=== PATIENT | female | born 1970 | race Caucasian/White ===

== ENCOUNTER 2016-05-19 17:36 | Emergency (ER) | payer OTHER ==
[2016-05-19 18:32] VITALS: BP 106/82
[2016-05-19] MEDS ORDERED: Benzonatate CAP* 100 MG PO ONE (19:29)
[2016-05-19] MEDS ORDERED: Azithromycin TAB* 250 MG PO ONE (19:29)
--- NOTE | 2016-05-19 22:08 | UC ---
Respiratory Complaint HPI - HPI Summary HPI Summary: productive cough and sinus congestion for 4d. Green drainage. Smoker. Feels feverish at times. Mild scratchy throat. Poor appetite. Body aches and malaise. - History of Current Complaint Chief Complaint: UCRespiratory Stated Complaint: COUGH Time Seen by Provider: 05/19/16 19:18 Hx Obtained From: Patient Hx Last Menstrual Period: 05/16/16 Onset/Duration: Gradual Onset, Lasting Days - 4 Timing: Constant Severity Initially: Mild Severity Currently: Mild Pain Intensity: 5 Character: Sputum Description: - green Aggravating Factors: Recumbent Position Alleviating Factors: Nothing Associated Signs And Symptoms: Positive: Dyspnea - at times, Fever, Chills, Wheezing - at times, URI, Nasal Congestion, Hoarseness, Sinus Discomfort - Allergies/Home Medications Allergies/Adverse Reactions: Allergies Allergy/AdvReac Type Severity Reaction Status Date / Time Morphine Allergy Rash Verified 05/19/16 18:22 Penicillins [PCN] Allergy Swelling Verified 05/19/16 18:22 Environment/Seasonal Hayfever Allergy Sneeze, Uncoded 05/19/16 18:22 Congestion Home Medications: Home Medications Docusate CAP* [Colace Cap*] 100 mg PO DAILY 05/19/16 [History Confirmed 05/19/16 ] Nightmare Medication BEDTIME 05/19/16 [History] Polyethylene Glycol 3350* [Miralax*] 17 gm PO DAILY 05/19/16 [History Confirmed 05/19/16] Tapentadol(NF) [Nucynta(NF)] 50 mg PO TID 05/19/16 [History Confirmed 05/19/16] PMH/Surg Hx/FS Hx/Imm Hx Endocrine History Of: Denies: Diabetes Cardiovascular History Of: Denies: Hypertension, Pacemaker/ICD, Congestive Heart Failure GI/ History Of: Reports: Gall Bladder Disease - domitila 05/2014 Denies: Renal Disease Neurological History Of: Reports: Migraine - R/T CHRONIC NECK PROBLEM Psychological History Of: Reports: Depression - BIPOLAR, NO MEDS PRESENTLY - Surgical History Surgical History: Yes Surgery Procedure, Year, and Place: TONSILLECTOMY. 1995 BILATERAL TUBAL LIGATION, [facility]. 2010 LYMPH NODE RIGHT SIDE BACK OF SHOULDER REMOVED, [place]. 05/29/2014 LAPAROSCOPIC CHOLECYSTECTOMY, [facility]. left ovary & fallopian tube removal 09/2015 - Family History Known Family History: Positive: Hypertension - Social History Occupation: Employed Full-time Alcohol Use: Occasionally Substance Use Type: None Smoking Status (MU): Light Every Day Tobacco Smoker Type: Cigarettes Amount Used/How Often: 3 cigarettes daily Length of Time of Smoking/Using Tobacco: 30 YEARS Have You Smoked in the Last Year: Yes Household Exposure Type: Cigarettes - Immunization History Most Recent Influenza Vaccination: 2015 Review of Systems Constitutional: Chills, Fatigue Skin: Negative Eyes: Negative ENT: Sore Throat, Nasal Discharge Respiratory: Cough Cardiovascular: Negative Gastrointestinal: Negative Genitourinary: Negative Motor: Negative Neurovascular: Negative Musculoskeletal: Negative Neurological: Negative Psychological: Negative All Other Systems Reviewed And Are Negative: Yes Physical Exam Triage Information Reviewed: Yes Appearance: Well-Appearing, No Pain Distress, Well-Nourished Vital Signs: Initial Vital Signs Temp 98 F 05/19/16 18:24 Pulse 74 05/19/16 18:24 Resp 18 05/19/16 18:24 BP 106/82 05/19/16 18:24 Pulse Ox 100 05/19/16 18:24 Eye Exam: Normal Eyes: Positive: Conjunctiva Clear ENT: Positive: Pharyngeal erythema, Nasal congestion, TMs normal, Muffled/ hoarse voice - hoarse Neck exam: Normal Neck: Positive: Supple Respiratory Exam: Normal Respiratory: Positive: Normal breath sounds, No respiratory distress, No accessory muscle use, Rhonchi Cardiovascular Exam: Normal Musculoskeletal Exam: Normal Neurological Exam: Normal Psychological Exam: Normal Skin Exam: Normal Diagnostic Evaluation - Laboratory O2 Sat by Pulse Oximetry: 100 Respiratory Course/Dx - Differential Dx/Diagnosis Differential Diagnosis/HQI/PQRI: Bronchitis, Lower Resp Infection, Sinusitis Provider Diagnoses: bronchitis Discharge - Discharge Plan Condition: Stable Disposition: HOME Prescriptions: Azithromycin TAB* [Zithromax TAB (Z-MARY LOU) 250 mg #6 tabs] 2 tab PO .TODAY, THEN 1 DAILY #1 mary lou Guaifenesin-Codeine [Cheratussin AC] 1 - 2 teasp PO Q6HR PRN #120 ml MDD 30ml PRN Reason: Cough Patient Education Materials: Upper Respiratory Infection (ED) Referrals: Carina Carney MD [Primary Care Provider] -
== END 2016-05-19 19:44 | disposition home or self-care (01) ==
LOC: UCCORT 17:36
DX: J40 Bronchitis, not specified as acute or chronic (principal); F17.210 Nicotine dependence, cigarettes, uncomplicated; Z88.0 Allergy status to penicillin; Z88.5 Allergy status to narcotic agent
CPT/HCPCS: 99212; A9270-GY; G0463

== ENCOUNTER 2016-07-01 15:19 | Emergency (ER) | payer OTHER ==
--- NOTE | 2016-07-01 15:56 | UC ---
Upper Extremity HPI - HPI Summary HPI Summary: This is a 46 yo female with a h/o IBS, RSD of the RLE, PTSD who presented with c /o R elbow and shoulder pain. Pain started ~ 2 weeks ago. She denies any new activities. No trauma. She is currently unemployed. Pain is concentrated in the proximal elbow and radiates to the shoulder. Pain is exacerbated by extension of the arm and overhead activities. - History of Current Complaint Chief Complaint: UCUpperExtremity Stated Complaint: RIGHT ELBOW PAIN Hx Last Menstrual Period: 06/12/16 - Allergies/Home Medications Allergies/Adverse Reactions: Allergies Allergy/AdvReac Type Severity Reaction Status Date / Time Morphine Allergy Rash Verified 07/01/16 15:25 Penicillins [PCN] Allergy Swelling Verified 07/01/16 15:25 Environment/Seasonal Hayfever Allergy Sneeze, Uncoded 07/01/16 15:25 Congestion Home Medications: Home Medications Bisacodyl EC TAB* [Dulcolax EC TAB*] 5 mg PO BID 07/01/16 [History Confirmed 12/10] Gabapentin CAP(*) [Neurontin 300 CAP(*)] 600 mg PO TID 07/01/16 [History Confirmed 07/01/16] PMH/Surg Hx/FS Hx/Imm Hx Endocrine History Of: Denies: Diabetes Cardiovascular History Of: Denies: Hypertension, Pacemaker/ICD, Congestive Heart Failure GI/ History Of: Reports: Gall Bladder Disease - domitila 05/2014 Denies: Renal Disease Neurological History Of: Reports: Migraine - R/T CHRONIC NECK PROBLEM Psychological History Of: Reports: Depression - BIPOLAR, NO MEDS PRESENTLY - Surgical History Surgical History: Yes Surgery Procedure, Year, and Place: TONSILLECTOMY. 1995 BILATERAL TUBAL LIGATION, [facility]. 2010 LYMPH NODE RIGHT SIDE BACK OF SHOULDER REMOVED, [place]. 05/29/2014 LAPAROSCOPIC CHOLECYSTECTOMY, [facility]. left ovary & fallopian tube removal 09/2015 - Family History Known Family History: Positive: Hypertension - Social History Alcohol Use: None Substance Use Type: None Smoking Status (MU): Heavy Every Day Tobacco Smoker Type: Cigarettes Amount Used/How Often: 1/2 PPD Length of Time of Smoking/Using Tobacco: 30 YEARS Have You Smoked in the Last Year: Yes Household Exposure Type: Cigarettes - Immunization History Most Recent Influenza Vaccination: 2016 Review of Systems Constitutional: Negative Skin: Negative Eyes: Negative ENT: Negative Respiratory: Negative Cardiovascular: Negative Gastrointestinal: Negative Genitourinary: Negative Motor: Negative Neurovascular: Negative Musculoskeletal: Arthralgia, Decreased ROM Neurological: Negative Psychological: Negative All Other Systems Reviewed And Are Negative: Yes Physical Exam Triage Information Reviewed: Yes Appearance: Pain Distress - mild Vital Signs: Initial Vital Signs Temp 98.0 F 07/01/16 15:28 Pulse 88 07/01/16 15:28 Resp 16 07/01/16 15:28 BP 113/59 07/01/16 15:28 Pulse Ox 100 07/01/16 15:28 Vital Signs Reviewed: Yes Musculoskeletal: Positive: Strength Intact, Other: - pain with palpation of triceps tendon insertion at the elbow and anterior deltoid/biceps origination, pain elicited with internal rotation of the shoulder Diagnostics - Laboratory Diagnostic Studies Completed/Ordered: XR shoulder - neg. XR elbow - neg Re-Evaluation - Re-Evaluation First Eval Re-Evaluation Time: 16:15 Change: Unchanged Comment: Reviewed XR results Upper Extremity Course/Dx - Course Course Of Treatment: This is a 46 yo female with IBS and RSD of LLE as well as PTSD who presents with R elbow and shoulder pain. Imaging is negative. Exam most consistent with tendinitis. Unlikely to be progression of her RSD. Recommend NSAIDs and can try topical lidocaine as well for symptomatic relief. Recommended f/u with PCP and referral to ortho and/or PT if pain persists. - Differential Dx/Diagnosis Differential Diagnosis/HQI/PQRI: Arthritis, Bursitis, Fracture (Closed), Strain , Sprain Provider Diagnoses: R triceps and biceps tendinitis Discharge - Discharge Plan Condition: Stable Disposition: HOME Prescriptions: Lidocaine 5% OINT* [Xylocaine 5% Oint*] 1 applic TOPICAL Q4H PRN #1 tube PRN Reason: Pain Naproxen [Naproxen EC] 500 mg PO BID #30 tab Patient Education Materials: Tendinitis (ED) Referrals: Carina Carney MD [Primary Care Provider] - Additional Instructions: Activity: Limit activity with R arm Instructions: 1. You likely have a tendinitis 2. Use Naproxen twice daily and topical lidocaine 3. If pain does not improve then please see your primary care for a referral to an orthopedist
--- NOTE | 2016-07-01 16:15 | RAD ---
INDICATION: Right shoulder pain COMPARISON: None TECHNIQUE: Routine frontal and Y views were obtained. FINDINGS: The bony structures, joint spaces, and soft tissues are normal for age. IMPRESSION: NEGATIVE EXAMINATION
--- NOTE | 2016-07-01 16:15 | RAD ---
INDICATION: Right elbow injury COMPARISON: None TECHNIQUE: AP, lateral, and oblique views were obtained. FINDINGS: The bony structures, joint spaces, and soft tissues are normal for age. IMPRESSION: NEGATIVE EXAMINATION.
[2016-07-01] MEDS ORDERED: Naproxen TAB* 250 MG PO ONE (16:40)
[2016-07-01 16:48] VITALS: BP 110/78
== END 2016-07-01 16:49 | disposition home or self-care (01) ==
LOC: UCCORT 15:19
DX: M75.21 Bicipital tendinitis, right shoulder (principal); M65.829 Other synovitis and tenosynovitis, unspecified upper arm; Z88.5 Allergy status to narcotic agent; Z88.0 Allergy status to penicillin; Z90.49 Acquired absence of other specified parts of digestive tract; F17.210 Nicotine dependence, cigarettes, uncomplicated
CPT/HCPCS: 99212; A9270-GY; G0463

== ENCOUNTER 2017-04-22 16:07 | Emergency (ER) | payer OTHER ==
[2017-04-22 16:25] VITALS: BP 109/74
--- NOTE | 2017-04-22 17:05 | ED ---
Back Pain - HPI Summary HPI Summary: 46 yr old female with the complaint of back pain. 09/02, worse with breathing associated with lumps near her thoracic spine on the left side about t-9 and in the paraspinal intercostal space about t8. just noticed today. Denies fever, weakness, numbness in legs. She has been a smoker for 30 years. - History of Current Complaint Chief Complaint: UCBackPain Stated Complaint: LUMP ON BACK (HURTS TO BREATH) Time Seen by Provider: 04/22/17 16:52 Hx Last Menstrual Period: 04/11/17 - Allergies/Home Medications Allergies/Adverse Reactions: Allergies Allergy/AdvReac Type Severity Reaction Status Date / Time Penicillins [PCN] Allergy Swelling Verified 04/22/17 16:26 Environment/Seasonal Hayfever Allergy Sneeze, Uncoded 04/22/17 16:26 Congestion Home Medications: Home Medications Amitriptyline TAB* [Elavil TAB*] 25 mg PO BEDTIME 04/22/17 [History Confirmed ] FLUoxetine CAP* [PROzac CAP*] 20 mg PO DAILY 04/22/17 [History Confirmed ] Famotidine TAB* [Pepcid 20 MG TAB*] 20 mg PO DAILY 04/22/17 [History Confirmed 04/22/17] Ferrous Gluconate TAB* [Fergon TAB*] 325 mg PO DAILY 04/22/17 [History Confirmed 04/22/17] Gabapentin CAP(*) [Neurontin 300 CAP(*)] 300 mg PO TID 04/22/17 [History Confirmed 04/22/17] Loratadine 10 mg PO DAILY 04/22/17 [History Confirmed 04/22/17] Omeprazole CAP* [Prilosec CAP* 20 MG] 20 mg PO DAILY 04/22/17 [History Confirmed 04/22/17] Ondansetron TAB* [Zofran 4 MG Tab*] 4 mg PO Q6H PRN 04/22/17 [History Confirmed 04/22/17] Varenicline (NF) [Chantix 1 MG TAB (NF)] 1 mg PO DAILY 04/22/17 [History Confirmed 04/22/17] PMH/Surg Hx/FS Hx/Imm Hx Endocrine/Hematology History: Reports: Hx Anemia - NO MEDS Denies: Hx Diabetes Cardiovascular History: Denies: Hx Congestive Heart Failure, Hx Hypertension, Hx Pacemaker/ICD Respiratory History: Reports: Other Respiratory Problems/Disorders GI History: Reports: Hx Gall Bladder Disease - domitila 05/2014, Hx Gastroesophageal Reflux Disease - NO MEDS, Other GI Disorders - pancreatitis, NO PROBLEMS NOW History: Reports: Other Problems/Disorders - HX OF UTI, NONE RECENTLY Denies: Hx Renal Disease Musculoskeletal History: Reports: Hx Back Problems Sensory History: Reports: Hx Contacts or Glasses Denies: Hx Hearing Aid Opthamlomology History: Reports: Hx Contacts or Glasses Neurological History: Reports: Hx Headaches, Hx Migraine - R/T CHRONIC NECK PROBLEM Psychiatric History: Reports: Hx Depression - BIPOLAR, NO MEDS PRESENTLY Denies: Hx Panic Disorder - Surgical History Surgery Procedure, Year, and Place: TONSILLECTOMY. 1995 BILATERAL TUBAL LIGATION, [facility]. 2010 LYMPH NODE RIGHT SIDE BACK OF SHOULDER REMOVED, [place]. 05/29/2014 LAPAROSCOPIC CHOLECYSTECTOMY, [facility]. left ovary & fallopian tube removal 09/2015 Hx Anesthesia Reactions: Yes - GALLBLADDER - DIFFICULTY WAKING - VS DROPPED X 2 Infectious Disease History: No Infectious Disease History: Denies: Traveled Outside the in Last 30 Days - Family History Known Family History: Positive: Hypertension - Social History Alcohol Use: Occasionally Substance Use Type: Reports: None Smoking Status (MU): Former Smoker Type: Cigarettes Amount Used/How Often: 1/2 PPD Length of Time of Smoking/Using Tobacco: 30 YEARS Have You Smoked in the Last Year: Yes Review of Systems Constitutional: Negative Negative: Shortness Of Breath Positive: Other - back pain Negative: Weakness, Paresthesia, Numbness All Other Systems Reviewed And Are Negative: Yes Physical Exam Triage Information Reviewed: Yes Vital Signs On Initial Exam: Initial Vitals Temp Pulse Resp BP Pulse Ox 98.1 F 90 18 109/74 99 04/22/17 16:21 04/22/17 16:21 04/22/17 16:21 04/22/17 16:21 04/22/17 16:21 Vital Signs Reviewed: Yes Appearance: Positive: Well-Appearing, No Pain Distress Skin: Positive: Warm, Skin Color Reflects Adequate Perfusion Head/Face: Positive: Normal Head/Face Inspection Eyes: Positive: EOMI ENT: Positive: Normal ENT inspection Respiratory/Lung Sounds: Positive: Clear to Auscultation, Breath Sounds Present , Other - In her thoracic spine area there are lumps to the left of the t-9 area and also in t-8 interspace that are firm and non mobile without flutucance and without redness. Cardiovascular: Positive: RRR. Negative: Murmur Musculoskeletal: Positive: Strength/ROM Intact Neurological: Positive: Sensory/Motor Intact, Alert, Oriented to Person Place, Time, CN Intact II-III Psychiatric: Positive: Normal - [place] Coma Scale Best Eye Response: 4 - Spontaneous Best Motor Response: 6 - Obeys Commands Best Verbal Response: 5 - Oriented Diagnostics - Vital Signs Vital Signs Temp Pulse Resp BP Pulse Ox 04/22/17 16:21 98.1 F 90 18 109/74 99 - Laboratory Lab Statement: Any lab studies that have been ordered have been reviewed, and results considered in the medical decision making process. Back Pain Course/Dx - Course Course Of Treatment: 46 yr old with pain, mass t spine superficial skin area and worse with breathing. She is going by ambulance to [facility] for further work up. ABDOUL Emanuel NP at [facility]. - Diagnoses Provider Diagnoses: Back pain Discharge - Discharge Plan Condition: Good Disposition: TRANS HIGHER LVL OF CARE FAC Referrals: Leonela Hernandez MD [Primary Care Provider] -
== END 2017-04-22 17:20 | disposition short-term general hospital (02) ==
LOC: UCCORT 16:07
DX: M54.9 Dorsalgia, unspecified (principal); R22.2 Localized swelling, mass and lump, trunk; Z88.0 Allergy status to penicillin; Z91.048 Other nonmedicinal substance allergy status; Z87.891 Personal history of nicotine dependence
CPT/HCPCS: 99213; G0463

== ENCOUNTER 2017-06-13 15:53 | Emergency (ER) | payer OTHER ==
[2017-06-13 17:06] VITALS: BP 113/77
--- NOTE | 2017-06-13 17:36 | UC ---
Back Pain HPI - HPI Summary HPI Summary: 47 y/o female presents to the urgent care c/o lower back pain s/p slipping on ice 2 days ago. Lower back pain started yesterday when she woke up. Pain is 9/ 10 w/ movement, sharp and spasmodic radiating to her left hip and leg. Pt has taken Naproxen to alleviate symptoms w/o any relief. Pt states she has Hx of herniated disc in her lower back. Pt denies saddle anesthesia, urinary and fecal incontinence, urinary symptoms, fever, abdominal pain, N/V/D. Pt is waiting fo ran appointment w/ a Neurologist at [place] for her back. - History of Current Complaint Chief Complaint: UCBackPain Stated Complaint: BACK PAIN DOWN LEFT LEG Time Seen by Provider: 06/13/17 17:34 Hx Obtained From: Patient Hx Last Menstrual Period: 06/05/17 ?: No Onset/Duration: Sudden Onset, Lasting Days - 2 days, Still Present, Worse Since - yesterday Timing: Constant Severity Initially: Moderate Severity Currently: Severe Pain Intensity: 9 Pain Scale Used: 0-10 Numeric Back Pain: Is Discrete @ - left side of lower back Character: Sharp, Spasmodic Aggravating Factor(s): Movement, Lifting, Bending, Walking Alleviating Factor(s): Rest, OTC Meds Associated Signs And Symptoms: Positive: Pain with Weight Bearing. Negative: Swelling, Redness, Bruising, Fever, Weakness, Numbness, Tingling, Abdominal Pain , Flank Pain, Bladder Incontinence, Bowel Incontinence, Weight Loss - Risk Factors AAA Risk Factors: Negative TAD Risk Factors: Negative Cauda Equina Risk Factors: Negative Epidural Abscess Risk Factors: Negative - Allergies/Home Medications Allergies/Adverse Reactions: Allergies Allergy/AdvReac Type Severity Reaction Status Date / Time Penicillins Allergy Swelling Verified 06/13/17 16:49 Environment/Seasonal Hayfever Allergy Sneeze, Uncoded 06/13/17 16:49 Congestion Home Medications: Home Medications Amitriptyline TAB* [Elavil TAB*] 50 mg PO BEDTIME 06/13/17 [History Confirmed ] Gabapentin 600 mg PO TID 06/13/17 [History Confirmed 06/13/17] Guaifenesin/Pseudoephedrne HCl [Mucinex D ER Tablet] 1 each PO BID PRN 06/13/17 [History Confirmed 06/13/17] Omeprazole 40 mg PO DAILY 06/13/17 [History Confirmed 06/13/17] Prazosin HCl 2 mg PO DAILY 06/13/17 [History Confirmed 06/13/17] Sennosides/Docusate Sodium [Senokot-S Tablet] 2 tab PO DAILY 06/13/17 [History Confirmed 06/13/17] Topiramate TAB(*) [Topamax 25 MG tab] 25 mg PO BEDTIME 06/13/17 [History Confirmed 06/13/17] PMH/Surg Hx/FS Hx/Imm Hx Previously Healthy: Yes Other Endocrine History: Anemia Other Neurological History: Neuropathy, herniated disc at lower back and neck Psychological History: Anxiety Other Psychological History: PTSD, - Surgical History Surgical History: Yes Surgery Procedure, Year, and Place: TONSILLECTOMY. 1995 BILATERAL TUBAL LIGATION, [facility]. 2009 LYMPH NODE RIGHT SIDE BACK OF SHOULDER REMOVED, [place]. 05/29/2014 LAPAROSCOPIC CHOLECYSTECTOMY, [facility]. left ovary & fallopian tube removal 09/2015 - Family History Known Family History: Positive: Cardiac Disease, Hypertension - Social History Occupation: Employed Full-time Lives: With Family Alcohol Use: Rare Substance Use Type: None Smoking Status (MU): Former Smoker Type: Cigarettes Amount Used/How Often: 1/2 PPD Length of Time of Smoking/Using Tobacco: 30 YEARS Have You Smoked in the Last Year: Yes When Did the Patient Quit Smoking/Using Tobacco: 09/2016 Household Exposure Type: Cigarettes - Immunization History Most Recent Influenza Vaccination: 2015 Review of Systems Constitutional: Negative Skin: Negative Eyes: Negative ENT: Negative Respiratory: Negative Cardiovascular: Negative Gastrointestinal: Negative Genitourinary: Negative Motor: Negative Neurovascular: Negative Musculoskeletal: Decreased ROM - lower back, Other: - lower back pain s/p fall Neurological: Negative Psychological: Negative Is Patient Immunocompromised?: No All Other Systems Reviewed And Are Negative: Yes Physical Exam Triage Information Reviewed: Yes Vital Signs: Initial Vital Signs Temp 97.7 F 06/13/17 17:00 Pulse 101 06/13/17 17:00 Resp 16 06/13/17 17:00 BP 113/77 06/13/17 17:00 Pulse Ox 99 06/13/17 17:00 - Additional Comments Vital Signs Reviewed: Yes Appearance: Well-Appearing, Well-Nourished, male sitting in the examining table w/o any apparent distress. Eyes: Positive: Conjunctiva Clear - PERRLA, EOMI. ENT: Positive: Normal ENT inspection, Hearing grossly normal, Pharynx normal, TMs normal, Uvula midline Neck: Positive: Supple, Nontender, No Lymphadenopathy Respiratory: Positive: Chest non-tender, Lungs clear, Normal breath sounds, No respiratory distress Cardiovascular: Positive: RRR, No Murmur, Pulses Normal, Brisk Capillary Refill Abdomen Description: Positive: Nontender, No Organomegaly, Soft. Negative: CVA Tenderness (R), CVA Tenderness (L) Bowel Sounds: Positive: Present Musculoskeletal: Positive: Strength Intact, Other: - BACK: Patient walked into the urgent care room with symmetric ambulation, No signs of limping, antalgic, able to bear weight. No signs of trauma, No masses palpated. Point tenderness at the level of L5-S1, and paraspinal muscle tenderness and spasm at the same level.No CVAT, no flank ecchymosis . No sacroiliac notch tenderness, No saddle anesthesia.ROM: limited due to pain, Straight Leg Raise: negative. Patellar reflexes: brisk, symmetric Muscle strength lower extremities. Dorsiflexion/ plantar flexion of ankles. Heel/ toe walk. Lower extremities: Femoral, popliteal , posterior tibial, and dorsalis pedis pulses WNL. Pt refuse rectal exam Neurological: Positive: Alert, Muscle Tone Normal Psychological Exam: Normal Skin Exam: Normal Back Pain Course/Dx - Course Course Of Treatment: 47 y/o female presents to the urgent care c/o lower back pain s/p slipping on ice 2 days ago. Lower back pain started yesterday when she woke up. Pain is 9/10 w/ movement, sharp and spasmodic radiating to her left hip and leg. Pt has taken Naproxen to alleviate symptoms w/o any relief. Pt states she has Hx of herniated disc in her lower back. Pt denies saddle anesthesia, urinary and fecal incontinence, urinary symptoms, fever, abdominal pain, N/V/D. Pt is waiting fo ran appointment w/ a Neurologist at [place] for her back. Hx obtained. Pt w/ point tenderness at the level of L5-S1, and paraspinal muscle tenderness and spasm at the same level. Lumbosacral X-ray ordered, Impression: No acute osseous injury observed, Moderate degenerative disc disease at T11-12, L2-L3, L3-L4. Pt given Toradol IM inj and famotidine PO, Prednisone PO . Flexeril PO dispensed home. Given by nurse. Pt tolerated well medication pain decrease. Medications sent to the [facility]. Patient was instructed to the f/u [facility] orthopedic Dr Sanchez in 1 week if symptoms do not improve or worsen. Patient understands and agrees. Patient is able to ambulate freely w/o aid or limp. Plan of care was discussed with the patient and patient understands and agrees. All questions were answered at patient satisfaction. Pt left clinic hemodynamically stable. - Differential Dx/Diagnosis Differential Diagnosis/HQI/PQRI: Arthritis, Compressive Cord Syndrome, Fracture , Herniated Disc, Renal Colic, Strain, Sprain Provider Diagnoses: 1- Acute lower back pain. 2-Back spasm Discharge - Discharge Plan Condition: Stable Disposition: HOME Prescriptions: Cyclobenzaprine TAB* [Flexeril 10 MG TAB*] 10 mg PO TID PRN #20 tab PRN Reason: Spasms - Back Naproxen [Naproxen 500 mg] 500 mg PO Q8H PRN #30 tab PRN Reason: Pain predniSONE TAB* [Deltasone TAB*] 20 mg PO DAILY #8 tab Patient Education Materials: Acute Low Back Pain (ED), Muscle Spasm (ED), Degenerative Disc Disease (ED) Referrals: Leonela Hernandez MD [Primary Care Provider] - 3 Days Sp Sanchez MD [Medical Doctor] - 1 Week Additional Instructions: 1- Please take Naproxen PO q6-8hrs as directed after meals for pain. Take your Omeprazole qd to protect your stomach 2- Take Flexeril PO as directed for muscle spasm. Please do not drive while taking the medication. This medication can interact w/ Prozac. If you develop confusion, agitation, diaphoresis, tachycardia or tremors. Please stop the medication immediately. 3- Wear a back support. Avoid strenuous exercise of heavy lifting. 4- Please follow up with Orthopedic Dr De Oliveira or your Neurologist AT [place] in 1 week if not improvement of symptoms, for further management.
[2017-06-13] MEDS ORDERED: Famotidine TAB* 20 MG PO ONE (17:49)
[2017-06-13] MEDS ORDERED: Ketorolac INJ* 30 MG/ML 1 ML VIAL IM ONE (17:49)
--- NOTE | 2017-06-13 18:43 | RAD ---
INDICATION: Low back pain status post fall 2 days ago. COMPARISON: There are no prior studies available for comparison. TECHNIQUE: 4 views of the lumbar sacral spine were obtained. FINDINGS: The vertebra are in normal alignment. No fracture is seen. There is mild to moderate degenerative disc disease at the T11-T12, L2-L3 and L3-L4 levels. IMPRESSION: NO EVIDENCE FOR FRACTURE.
[2017-06-13] MEDS ORDERED: predniSONE TAB* 20 MG PO ONE (18:51)
[2017-06-13] MEDS ORDERED: Cyclobenzaprine TAB* 10 MG PO ONE (18:53)
== END 2017-06-13 19:12 | disposition home or self-care (01) ==
LOC: UCCORT 15:53
DX: M54.5 Low back pain (principal); M62.830 Muscle spasm of back; F43.10 Post-traumatic stress disorder, unspecified; Z87.891 Personal history of nicotine dependence; F41.9 Anxiety disorder, unspecified
CPT/HCPCS: 72110; 96372; 99213; A9270-GY; G0463; J1885; J7512

== ENCOUNTER 2017-06-24 12:38 | Emergency (ER) | payer OTHER ==
--- NOTE | 2017-06-24 14:14 | UC ---
Hand/Wrist HPI - HPI Summary HPI Summary: tripped over cat and fell with right wrist into door casing this morning - History Of Current Complaint Chief Complaint: UCUpperExtremity Stated Complaint: RT WRIST PAIN Time Seen by Provider: 06/24/17 14:05 Hx Obtained From: Patient Hx Last Menstrual Period: 06/05/17 ?: No Mechanism Of Injury: fall Onset/Duration: Sudden Onset, Lasting Hours Severity Initially: Moderate Severity Currently: Moderate Character Of Pain: Aching, Throbbing Aggravating Factor(s): Movement Alleviating Factor(s): Nothing Associated Signs And Symptoms: Positive: Swelling Related History: Dominant Hand Right - Allergies/Home Medications Allergies/Adverse Reactions: Allergies Allergy/AdvReac Type Severity Reaction Status Date / Time Penicillins Allergy Swelling Verified 06/24/17 14:05 Environment/Seasonal Hayfever Allergy Sneeze, Uncoded 06/24/17 14:05 Congestion PMH/Surg Hx/FS Hx/Imm Hx Previously Healthy: No - chronic back pain GI/ History: Gastroesophageal Reflux - Surgical History Surgical History: Yes Surgery Procedure, Year, and Place: TONSILLECTOMY. 1995 BILATERAL TUBAL LIGATION, [facility]. 2010 LYMPH NODE RIGHT SIDE BACK OF SHOULDER REMOVED, [place]. 05/29/2014 LAPAROSCOPIC CHOLECYSTECTOMY, [facility]. left ovary & fallopian tube removal 09/2015 - Family History Known Family History: Positive: Cardiac Disease, Hypertension - Social History Occupation: Disabled Lives: With Family Alcohol Use: Rare Substance Use Type: None Smoking Status (MU): Former Smoker Type: Cigarettes Amount Used/How Often: 1/2 PPD Length of Time of Smoking/Using Tobacco: 30 YEARS Have You Smoked in the Last Year: Yes When Did the Patient Quit Smoking/Using Tobacco: 09/2016 Household Exposure Type: Cigarettes - Immunization History Most Recent Influenza Vaccination: 2015 Review of Systems Constitutional: Negative Skin: Negative Eyes: Negative ENT: Negative Respiratory: Negative Cardiovascular: Negative Gastrointestinal: Negative Genitourinary: Negative Motor: Negative Neurovascular: Negative Musculoskeletal: Arthralgia - right distal ulna / radius dorsal bruising Neurological: Negative Psychological: Negative Is Patient Immunocompromised?: No All Other Systems Reviewed And Are Negative: Yes Physical Exam Triage Information Reviewed: Yes Appearance: Well-Appearing, Well-Nourished, Pain Distress Vital Signs Reviewed: Yes Eye Exam: Normal Eyes: Positive: Conjunctiva Clear ENT Exam: Normal ENT: Positive: Normal ENT inspection, Hearing grossly normal, Pharynx normal, Nasal congestion, Nasal drainage Dental Exam: Normal Neck exam: Normal Neck: Positive: Supple, Nontender Respiratory Exam: Normal Respiratory: Positive: No respiratory distress, No accessory muscle use Cardiovascular Exam: Normal Cardiovascular: Positive: RRR, Pulses Normal, Brisk Capillary Refill Musculoskeletal Exam: Normal Musculoskeletal: Positive: Strength Intact, ROM Intact, No Edema Neurological Exam: Normal Neurological: Positive: Alert, Muscle Tone Normal Psychological Exam: Normal Skin Exam: Normal Diagnostics - Radiology No standard instances Xray Interpretation: No Acute Changes Radiology Interpretation Completed By: Radiologist Hand/Wrist Course/Dx - Course Course Of Treatment: rice, inocente, follow with pcp prn - Differential Dx/Diagnosis Provider Diagnoses: contusion distal right forarm Discharge - Discharge Plan Condition: Stable Disposition: HOME Patient Education Materials: Contusion in Adults (ED), R.I.C.E. Treatment (ED) Referrals: Leonela Hernandez MD [Primary Care Provider] - If Needed
[2017-06-24 14:16] VITALS: BP 111/86
[2017-06-24] MEDS: HYDROcodone/ACETAMIN 5-325 MG* 1 TAB PO ONE (14:22)
--- NOTE | 2017-06-24 14:29 | RAD ---
Indication: Right wrist pain. 3 views of the wrist demonstrates no fracture. No other bone or joint abnormality is identified. IMPRESSION: NO FRACTURE OF THE WRIST IS NOTED.
== END 2017-06-24 14:46 | disposition home or self-care (01) ==
LOC: UCCORT 12:38
DX: S50.11XA Contusion of right forearm, initial encounter (principal); W01.0XXA Fall on same level from slipping, tripping and stumbling without subsequent striking against object, initial encounter; Y93.9 Activity, unspecified; Y92.9 Unspecified place or not applicable; Z88.0 Allergy status to penicillin; Z91.048 Other nonmedicinal substance allergy status; Z87.891 Personal history of nicotine dependence
CPT/HCPCS: 99212; G0463

== ENCOUNTER 2017-07-28 17:52 | Emergency (ER) | payer OTHER ==
[2017-07-28] MEDS ORDERED: Ketorolac INJ* 60 MG/2 ML VIAL IM ONE (18:25)
--- NOTE | 2017-07-28 18:53 | RAD ---
HISTORY: Left-sided chest pain COMPARISONS: None VIEWS: 4: Frontal dual-energy and lateral views of the chest. FINDINGS: CARDIOMEDIASTINAL SILHOUETTE: The cardiomediastinal silhouette is normal. JESSENIA: The jessenia are normal. PLEURA: The costophrenic angles are sharp. No pleural abnormalities are noted. LUNG PARENCHYMA: The lungs are clear. ABDOMEN: The upper abdomen is clear. There is no subphrenic gas. BONES AND SOFT TISSUES: No bone or soft tissue abnormalities are noted. OTHER: None. IMPRESSION: NO ACTIVE CARDIOPULMONARY DISEASE.
--- NOTE | 2017-07-28 18:54 | UC ---
Cardiac HPI - HPI Summary HPI Summary: Pt presents with c/o left chest pain that radiates from left scapula to mid sternum that has been worsening over the last two days. Denies injury. Has hx of RSD. - History of Current Complaint Chief Complaint: UCChestPain Stated Complaint: SHORTNESS OF BREATH Time Seen by Provider: 07/28/17 18:17 Hx Obtained From: Patient Hx Last Menstrual Period: 07/03/17 Onset/Duration: Sudden Onset, Lasting Days, Worse Since - onset Timing: Constant Initial Severity: Moderate Current Severity: Severe Pain Intensity: 10 Chest Pain Location: Mid Sternal, Left Anterior, Left Lateral Character: Tightness, Sharp/Stabbing Aggravating Factor(s): Exertion, Position, Movement, Deep Breaths Alleviating Factor(s): Nothing Associated Signs & Symptoms: Positive: Chest Pain, Back Pain - Risk Factors Pulmonary Embolism Risk Factors: Negative, Smoking Cardiac Risk Factors: Negative, Smoking Atrial Fibrillation: Negative TAD Risk Factors: Negative, Smoking AMI/ACS Risk Factors: Smoking - Allergy/Home Medications Allergies/Adverse Reactions: Allergies Allergy/AdvReac Type Severity Reaction Status Date / Time Penicillins Allergy Swelling Verified 07/28/17 18:09 Environment/Seasonal Hayfever Allergy Sneeze, Uncoded 07/28/17 18:09 Congestion Home Medications: Home Medications Guaifenesin/Pseudo 600/60(NF) [Mucinex D 600/60 (NF)] 2 tab PO BID 07/28/17 [ History Confirmed 07/28/17] Meloxicam(NF) [Mobic(NF)] 15 mg PO BEDTIME 07/28/17 [History Confirmed 07/28/17] Ondansetron HCl [Zofran 4 MG TAB] 4 mg PO Q4H PRN 07/28/17 [History Confirmed ] PMH/Surg Hx/FS Hx/Imm Hx Previously Healthy: Yes Neurological History: Other - RSD Other Neurological History: RSD - Surgical History Surgical History: Yes Surgery Procedure, Year, and Place: TONSILLECTOMY. 1995 BILATERAL TUBAL LIGATION, [facility]. 2010 LYMPH NODE RIGHT SIDE BACK OF SHOULDER REMOVED, [place]. 05/29/2014 LAPAROSCOPIC CHOLECYSTECTOMY, [facility]. left ovary & fallopian tube removal 09/2015 - Family History Known Family History: Positive: Cardiac Disease, Hypertension - Social History Occupation: Works From/At Home Lives: With Family Alcohol Use: None Substance Use Type: None Smoking Status (MU): Former Smoker Type: Cigarettes Amount Used/How Often: 1/2 PPD Length of Time of Smoking/Using Tobacco: 30 YEARS Have You Smoked in the Last Year: Yes When Did the Patient Quit Smoking/Using Tobacco: 09/2016 Household Exposure Type: Cigarettes - Immunization History Most Recent Influenza Vaccination: 2015 Review of Systems Constitutional: Negative Skin: Negative Eyes: Negative ENT: Negative Respiratory: Shortness Of Breath Cardiovascular: Chest Pain Gastrointestinal: Negative Motor: Decreased ROM - left shoulder Neurovascular: Other Musculoskeletal: Arthralgia - left chest wall, Decreased ROM, Myalgia Neurological: Weakness - left arm, shoulder, chest wall, left scapula, Paresthesia Psychological: Other - pain Is Patient Immunocompromised?: No All Other Systems Reviewed And Are Negative: Yes Physical Exam Triage Information Reviewed: Yes Appearance: Pain Distress Vital Signs: Initial Vital Signs Temp 98.5 F 07/28/17 17:54 Pulse 106 07/28/17 17:54 Resp 16 07/28/17 17:54 BP 120/64 07/28/17 17:54 Pulse Ox 98 07/28/17 17:54 Vital Signs Reviewed: Yes Eye Exam: Normal ENT Exam: Normal Respiratory Exam: Normal Cardiovascular Exam: Other Cardiovascular: Positive: Tachycardia Musculoskeletal Exam: Other Musculoskeletal: Positive: Strength Limited @, ROM Limited @ - left upper extremity, Other: - hypersensitivity to physical exam Neurological Exam: Other Neurological: Positive: Other: - hypersensitivy to palpation, Psychological Exam: Normal Skin Exam: Normal Diagnostics - Radiology No standard instances Radiology Interpretation Completed By: Radiologist - IMPRESSION: NO ACTIVE CARDIOPULMONARY DISEASE. - Differential Diagnoses - Chest Pain Differential Diagnosis/HQI/PQRI: Chest Wall, Pulmonary Embolism - Clinical Impression Provider Diagnoses: chest wall pain. concern for PE. intractable pain. RSD flare - Physician Notifications Discussed Patient Care With: Dr. Meyer - . REcieving MD at [facility] gave indication that he did not want accpet pt. Pt was verbally accepted for transfer. It was explained to the receiving MD, that we can not sedate pts at our facility and then send them home by taxi as he suggested. Pt has hx of rsd. Time Discussed With Above Provider: 19:20 Discharge - Sign-Out/Discharge Documenting (check all that apply): Discharge - Discharge Plan Condition: Stable Disposition: TRANS [facility] OF CARE FAC Patient Education Materials: Chest Pain (ED), Complex Regional Pain Syndrome ( DC) Referrals: Leonela Hernandez MD [Primary Care Provider] - - Billing Disposition and Condition Condition: STABLE Disposition: EMTALA
[2017-07-28 19:14] VITALS: BP 126/77
== END 2017-07-28 19:16 | disposition short-term general hospital (02) ==
LOC: UCCORT 17:52
DX: R07.89 Other chest pain (principal); G90.50 Complex regional pain syndrome I, unspecified; Z87.891 Personal history of nicotine dependence; Z88.0 Allergy status to penicillin
CPT/HCPCS: 71046; 93005; 96372; 99213; G0463; J1885

== ENCOUNTER 2017-08-09 11:03 | Emergency (ER) | payer OTHER ==
[2017-08-09] MEDS ORDERED: Aspirin 81 mg CHEW TAB* 81 MG TAB.CHEW PO ONE (11:19)
[2017-08-09] MEDS ORDERED: Morphine INJ* 4 MG/ML 1 ML CARPUJECT IV ONE (11:20)
--- NOTE | 2017-08-09 11:26 | ED ---
HPI Chest Pain - HPI Summary HPI Summary: 47 yr old female with complaint of chest pain, onset more than a day, located left lateral chest and radiates under her breast. Pain 9/10. She complains of associated shortness of breath. Denies dizziness. Denies rash. - History of Current Complaint Time Seen by Provider: 08/09/17 11:13 Hx Last Menstrual Period: 07/03/17 - Allergy/Home Medications Allergies/Adverse Reactions: Allergies Allergy/AdvReac Type Severity Reaction Status Date / Time Penicillins Allergy Swelling Verified 07/28/17 18:09 Environment/Seasonal Hayfever Allergy Sneeze, Uncoded 07/28/17 18:09 Congestion PMH/Surg Hx/FS Hx/Imm Hx Endocrine/Hematology History: Reports: Hx Anemia - NO MEDS Denies: Hx Diabetes Cardiovascular History: Denies: Hx Congestive Heart Failure, Hx Hypertension, Hx Pacemaker/ICD Respiratory History: Reports: Hx Chronic Obstructive Pulmonary Disease (COPD), Other Respiratory Problems/Disorders GI History: Reports: Hx Gall Bladder Disease - domitila 05/2014, Hx Gastroesophageal Reflux Disease - NO MEDS, Other GI Disorders - pancreatitis, NO PROBLEMS NOW History: Reports: Other Problems/Disorders - HX OF UTI, NONE RECENTLY Denies: Hx Renal Disease Musculoskeletal History: Reports: Hx Back Problems Sensory History: Reports: Hx Contacts or Glasses Denies: Hx Hearing Aid Opthamlomology History: Reports: Hx Contacts or Glasses Neurological History: Reports: Hx Headaches, Hx Migraine - R/T CHRONIC NECK PROBLEM Psychiatric History: Reports: Hx Depression - BIPOLAR, NO MEDS PRESENTLY Denies: Hx Panic Disorder - Surgical History Surgery Procedure, Year, and Place: TONSILLECTOMY. 1995 BILATERAL TUBAL LIGATION, [facility]. 2010 LYMPH NODE RIGHT SIDE BACK OF SHOULDER REMOVED, [place]. 05/29/2014 LAPAROSCOPIC CHOLECYSTECTOMY, [facility]. left ovary & fallopian tube removal 09/2015 Hx Anesthesia Reactions: Yes - GALLBLADDER - DIFFICULTY WAKING - VS DROPPED X 2 Infectious Disease History: Denies: Traveled Outside the [place] in Last 30 Days - Family History Known Family History: Positive: Cardiac Disease, Hypertension - Social History Alcohol Use: None Substance Use Type: Reports: None Smoking Status (MU): Former Smoker Type: Cigarettes Amount Used/How Often: 1/2 PPD Length of Time of Smoking/Using Tobacco: 30 YEARS Have You Smoked in the Last Year: Yes Review of Systems Constitutional: Negative Positive: Chest Pain Positive: Shortness Of Breath All Other Systems Reviewed And Are Negative: Yes Physical Exam Triage Information Reviewed: Yes Vital Signs Reviewed: Yes Appearance: Positive: Well-Appearing, No Pain Distress Skin: Positive: Warm, Skin Color Reflects Adequate Perfusion Head/Face: Positive: Normal Head/Face Inspection Eyes: Positive: EOMI Neck: Positive: Nontender Respiratory/Lung Sounds: Positive: Clear to Auscultation, Breath Sounds Present Cardiovascular: Positive: RRR. Negative: Murmur Abdomen Description: Positive: Nontender Musculoskeletal: Positive: Strength/ROM Intact. Negative: Edema Left, Edema Right Neurological: Positive: Sensory/Motor Intact, Alert, Oriented to Person Place, Time, CN Intact II-III Psychiatric: Positive: Normal - Fredrick Coma Scale Best Eye Response: 4 - Spontaneous Best Motor Response: 6 - Obeys Commands Best Verbal Response: 5 - Oriented Coma Scale Total: 15 Diagnostics - Laboratory Lab Statement: Any lab studies that have been ordered have been reviewed, and results considered in the medical decision making process. - EKG 08/09/17 Cardiac Rate: NL EKG Rhythm: Sinus Rhythm ST Segment: Normal Ectopy: None Chest Pain Course/Dx - Course Course Of Treatment: 47 yr old with chest pain, DW Dr Navarro [facility] [place] transfer by ambulance. - Diagnoses Provider Diagnoses: Chest pain, Hypertension Discharge - Sign-Out/Discharge Documenting (check all that apply): Discharge - Discharge Plan Condition: Good Disposition: TRANS [facility] CARE FAC Referrals: Jose Alberto Morocho MD [Primary Care Provider] - - Billing Disposition and Condition Condition: GOOD Disposition: EMTALA
[2017-08-09] MEDS ORDERED: Morphine INJ* 2 MG/ML 1 ML CARPUJECT ONE (11:32)
[2017-08-09] MEDS ORDERED: Ondansetron ODT TAB* 4 MG PO ONE (11:39)
[2017-08-09 11:51] VITALS: BP 170/120
== END 2017-08-09 11:45 | disposition short-term general hospital (02) ==
LOC: UCCORT 11:03
DX: R07.9 Chest pain, unspecified (principal); F17.210 Nicotine dependence, cigarettes, uncomplicated; Z88.0 Allergy status to penicillin; I10 Essential (primary) hypertension
CPT/HCPCS: 93005; 96374; 99213; A9270-GY; G0463; J2270

== ENCOUNTER 2017-08-09 12:28 | Emergency (ER) | payer OTHER ==
[2017-08-09] MEDS ORDERED: Ondansetron INJ* 2 MG/ML VIAL IV ONE (17:24)
[2017-08-09] MEDS ORDERED: HYDROmorphone INJ* 2 MG/ML CARPUJECT SYRINGE IV ONE (17:24)
[2017-08-09] MEDS ORDERED: HYDROmorphone INJ* 1 MG/ML CARPUJECT SYRINGE IV ONE (17:24)
--- NOTE | 2017-08-09 18:11 | RAD ---
INDICATION: Severe pain dorsal spine. COMPARISON: Comparison is made with a prior chest x-ray study from July 28, 2017. TECHNIQUE: Contiguous axial sections were obtained beginning above the C6 vertebra and scanning through the L1 vertebra. Images were reconstructed in the sagittal and coronal planes. FINDINGS: There is a mild dorsal scoliosis convex toward the right side. The vertebra are otherwise in normal alignment. No fracture is seen. There is moderate degenerative disc disease at the C4-C5 and C5-C6 level. Disc spaces appear maintained in the dorsal spine. No areas of spinal canal narrowing is seen within the dorsal spine. There is mild bilateral apical pleural and parenchymal scarring. Images of the upper abdomen demonstrate an area of peripheral calcification in these region of the splenic hilum suspicious for splenic artery aneurysm measuring 1 cm in size. IMPRESSION: 1. NO EVIDENCE FOR FRACTURE OR DORSAL SPINAL CANAL NARROWING. 2. MODERATE DEGENERATIVE DISC DISEASE AT THE C4-C5 AND C5-C6 LEVELS. 3. PROBABLE 1 CM SPLENIC ARTERY ANEURYSM.
[2017-08-09 20:06] VITALS: BP 108/84
--- NOTE | 2017-08-09 21:36 | ED ---
Alejandra Rodriguez Edward, scribed for Luis Alfredo Aguilar MD on 08/09/17 at 1317 . Back Pain - HPI Summary HPI Summary: 47 y/o female [place] c/o intermittent severe back pain for several weeks between her shoulder blades. Initially the pt woke up with the pain. Associated sx: SOB. Today the pain worsened and radiated to her L chest underneath her breast. Aggravated with movement and breathing. Pt was seen at [place] for the same sx. Pt states she was not given pain medications. Denies injury. - History of Current Complaint Chief Complaint: EDChestPainROMI Stated Complaint: SOB/LT FLANK PAIN Time Seen by Provider: 08/09/17 12:43 Hx Obtained From: Patient Hx Last Menstrual Period: last month Onset/Duration: Lasting Weeks, Still Present Onset/Duration: Started Weeks Ago, Still Present Timing: Intermittent Pain Intensity: 9 Pain Scale Used: 0-10 Numeric Aggravating Symptom(s): Movement, Other - breathing Alleviating Symptom(s): Nothing Associated Signs And Symptoms: Positive: Other - SOB - Allergies/Home Medications Allergies/Adverse Reactions: Allergies Allergy/AdvReac Type Severity Reaction Status Date / Time adhesive tape Allergy Blisters Verified 08/09/17 12:46 Penicillins Allergy Swelling Verified 08/09/17 12:46 Environment/Seasonal Hayfever Allergy Sneeze, Uncoded 08/09/17 12:46 Congestion Home Medications: Home Medications Famotidine TAB* [Pepcid 20 MG TAB*] 20 mg PO DAILY 08/09/17 [History Confirmed 08/09/17] Gabapentin CAP(*) [Neurontin 400 mg CAP(*)] 800 mg PO TID 08/09/17 [History Confirmed 08/09/17] LoraTADine TAB(NF) [Claritin 10 MG TAB(NF)] 10 mg PO DAILY PRN 08/09/17 [ History Confirmed 08/09/17] Omeprazole CAP* [Prilosec CAP* 20 MG] 40 mg PO DAILY 08/09/17 [History Confirmed 08/09/17] Ondansetron TAB* [Zofran 4 MG Tab*] 4 mg PO Q4HR PRN 08/09/17 [History Confirmed 08/09/17] Prazosin CAP* [Minipress CAP*] 2 mg PO DAILY 08/09/17 [History Confirmed ] Varenicline (NF) [Chantix 1 MG TAB (NF)] 1 mg PO DAILY 08/09/17 [History Confirmed 08/09/17] guaiFENesin ER TAB [Mucinex*] 1,200 mg PO BID 08/09/17 [History Confirmed ] PMH/Surg Hx/FS Hx/Imm Hx Previously Healthy: No Endocrine/Hematology History: Reports: Hx Anemia - NO MEDS Denies: Hx Diabetes Cardiovascular History: Denies: Hx Congestive Heart Failure, Hx Hypertension, Hx Pacemaker/ICD Respiratory History: Reports: Hx Chronic Obstructive Pulmonary Disease (COPD), Other Respiratory Problems/Disorders GI History: Reports: Hx Gall Bladder Disease - domitila 05/2014, Hx Gastroesophageal Reflux Disease - NO MEDS, Other GI Disorders - pancreatitis, NO PROBLEMS NOW History: Reports: Other Problems/Disorders - HX OF UTI, NONE RECENTLY Denies: Hx Renal Disease Musculoskeletal History: Reports: Hx Back Problems Sensory History: Reports: Hx Contacts or Glasses Opthamlomology History: Reports: Hx Contacts or Glasses Neurological History: Reports: Hx Headaches, Hx Migraine - R/T CHRONIC NECK PROBLEM Psychiatric History: Reports: Hx Depression - BIPOLAR, NO MEDS PRESENTLY Denies: Hx Panic Disorder - Surgical History Surgery Procedure, Year, and Place: TONSILLECTOMY. 1995 BILATERAL TUBAL LIGATION, [facility]. 2010 LYMPH NODE RIGHT SIDE BACK OF SHOULDER REMOVED, [place]. 05/29/2014 LAPAROSCOPIC CHOLECYSTECTOMY, [facility]. left ovary & fallopian tube removal 09/2015 Hx Anesthesia Reactions: Yes - GALLBLADDER - DIFFICULTY WAKING - VS DROPPED X 2 Infectious Disease History: No Infectious Disease History: Denies: Traveled Outside the in Last 30 Days - Family History Known Family History: Positive: Cardiac Disease, Hypertension - Social History Alcohol Use: None Substance Use Type: Reports: Prescribed Smoking Status (MU): Former Smoker Type: Cigarettes Amount Used/How Often: 1/2 PPD Length of Time of Smoking/Using Tobacco: 30 YEARS Have You Smoked in the Last Year: Yes Review of Systems Constitutional: Negative Eyes: Negative ENT: Negative Cardiovascular: Negative Positive: Shortness Of Breath Gastrointestinal: Negative Genitourinary: Negative Musculoskeletal: Other - back pain Skin: Negative Neurological: Negative Psychological: Normal All Other Systems Reviewed And Are Negative: Yes Physical Exam - Summary Physical Exam Summary: Appearance: The patient is well-nourished in no acute distress and in no acute pain. Skin: The skin is warm and dry and skin color reflects adequate perfusion. HEENT: The head is normocephalic and atraumatic. The pupils are equal and reactive. The conjunctivae are clear and without drainage. Nares are patent and without drainage. Mouth reveals moist mucous membranes and the throat is without erythema and exudate. The external ears are intact. The ear canals are patent and without drainage. The tympanic membranes are intact. Neck: the neck is supple with full range of motion and non-tender. There are no carotid bruits. There is no neck vein distension. Respiratory: Chest is non-tender. Lungs are clear to auscultation and breath sounds are symmetrical and equal. Cardiovascular: Heart is regular rate and rhythm. There is no murmur or rub auscultated. There is no peripheral edema and pulses are symmetrical and equal. Abdomen: The abdomen is soft and non-tender. There are normal bowel sounds heard in all four quadrants and there is no organomegaly palpated. Musculoskeletal: There is tenderness at the L posterior lateral lower ribs and the paralumbar area. Extremities are non-tender with full range of motion. There is good capillary refill. There is no peripheral edema or calf tenderness elicited. Neurological: Patient is alert and oriented to person, place and time. The patient has symmetrical motor strength in all four extremities. Cranial nerves are grossly intact. Deep tendon reflexes are symmetrical and equal in all four extremities. Psychiatric: The patient has an appropriate affect and does not exhibit any anxiety or depression. Triage Information Reviewed: Yes Vital Signs On Initial Exam: Initial Vitals Temp Pulse Resp BP Pulse Ox 98.0 F 109 16 138/75 97 08/09/17 12:33 08/09/17 12:33 08/09/17 12:33 08/09/17 12:33 08/09/17 12:33 Vital Signs Reviewed: Yes Diagnostics - Vital Signs Vital Signs Temp Pulse Resp BP Pulse Ox 08/09/17 12:38 105 13 138/75 97 08/09/17 12:37 106 21 96 08/09/17 12:33 98.0 F 109 16 138/75 97 - Laboratory Lab Statement: Any lab studies that have been ordered have been reviewed, and results considered in the medical decision making process. - CT THORACIC SPINE CT Interpretation Completed By: Radiologist - 1. NO EVIDENCE FOR FRACTURE OR DORSAL SPINAL CANAL NARROWING. 2. MODERATE DEGENERATIVE DISC DISEASE AT THE C4- C5 AND C5-C6 LEVELS. 3. PROBABLE 1 CM SPLENIC ARTERY ANEURYSM. Re-Evaluation - Re-Evaluation 1 Re-Evaluation Time: 17:22 Comment: Discuss test results, plan of care Back Pain Course/Dx - Course Course Of Treatment: Ms. Arteaga started with left posterolateral thoracic pain a couple weeks ago. She went to [place] ED and was found to be in intractable pain and admitted. A CTA of her chest was read as normal in the ED. She was D/C'd on percocet which ran out and she went back to the ED. She was D/C'd without medications at that time and has continued to get worse. CT of her thoracic spine was unremarkable today and I will treat her symptomatically. She understands that she will need to have a PMD prescribe ongoing meds for chronic pain. - Diagnoses Provider Diagnoses: Back pain Discharge - Sign-Out/Discharge Documenting (check all that apply): Discharge - Discharge Plan Condition: Stable Disposition: HOME Prescriptions: oxyCODONE/Acetamin 5/325 MG* [Percocet 5/325 TAB*] 1 tab PO Q6H PRN #20 tab MDD 4 PRN Reason: Pain Patient Education Materials: Back Pain (ED) Referrals: Jose Alberto Morocho MD [Primary Care Provider] - 4 Days (PLEASE F/U IN 3-5 DAYS) - Billing Disposition and Condition Condition: STABLE Disposition: HOME The documentation as recorded by the Alejandra hernandez Edward accurately reflects the service I personally performed and the decisions made by me, Luis Alfredo Aguilar MD.
== END 2017-08-09 20:06 | disposition home or self-care (01) ==
LOC: ED 12:28
DX: M54.9 Dorsalgia, unspecified (principal); R06.02 Shortness of breath; Z87.891 Personal history of nicotine dependence
CPT/HCPCS: 72128; 96374; 96375; 99283; J1170; J2405

== ENCOUNTER 2017-08-18 14:48 | Emergency (ER) | payer OTHER ==
--- NOTE | 2017-08-18 15:00 | UC ---
Abdominal Pain Female HPI - HPI Summary HPI Summary: Pt presents with RLQ pain that started 2 days ago. She tells me that the pain began suddenly and has been increasing since then. Has had some nausea, but no vomiting. Says that she has a history of ovarian cysts and tried to get an appointment with her OBGYN, but they could not see her for 2 weeks. Denies fever , chills, SOB, chest pain, diarrhea, constipation, dysuria, vaginal discharge/ bleeding. - History of Current Complaint Stated Complaint: ABD PAIN Time Seen by Provider: 08/18/17 14:59 Hx Obtained From: Patient Hx Last Menstrual Period: last month Onset/Duration: Sudden Onset Timing: Constant Severity Initially: Severe Severity Currently: Severe Pain Intensity: 9 Pain Scale Used: 0-10 Numeric Location: Discrete At: RLQ Allergies/Adverse Reactions: Allergies Allergy/AdvReac Type Severity Reaction Status Date / Time adhesive tape Allergy Blisters Verified 08/18/17 14:54 Penicillins Allergy Swelling Verified 08/18/17 14:54 Environment/Seasonal Hayfever Allergy Sneeze, Uncoded 08/18/17 14:54 Congestion PMH/Surg Hx/FS Hx/Imm Hx Cardiovascular History: Hypertension Psychological History: Anxiety, Depression - Surgical History Surgical History: Yes Surgery Procedure, Year, and Place: TONSILLECTOMY. 1995 BILATERAL TUBAL LIGATION, [facility]. 2009 LYMPH NODE RIGHT SIDE BACK OF SHOULDER REMOVED, [place]. 05/29/2014 LAPAROSCOPIC CHOLECYSTECTOMY, [facility]. left ovary & fallopian tube removal 09/2015 - Family History Known Family History: Positive: Cardiac Disease, Hypertension - Social History Alcohol Use: None Substance Use Type: Prescribed Smoking Status (MU): Former Smoker Type: Cigarettes Amount Used/How Often: 1/2 PPD Length of Time of Smoking/Using Tobacco: 30 YEARS Have You Smoked in the Last Year: Yes When Did the Patient Quit Smoking/Using Tobacco: 09/2016 Household Exposure Type: Cigarettes - Immunization History Most Recent Influenza Vaccination: 2015 Review of Systems Constitutional: Negative Skin: Negative Respiratory: Negative Cardiovascular: Negative Gastrointestinal: Abdominal Pain, Nausea Neurovascular: Negative Neurological: Negative Psychological: Negative All Other Systems Reviewed And Are Negative: Yes Physical Exam - Summary Physical Exam Summary: GENERAL: NAD. WDWN. No pain distress. SKIN: No rashes, sores, ulcers, masses, lesions. NECK: Supple. Nontender. No lymphadenopathy. CHEST: CTAB. No r/r/w. No accessory muscle use. Breathing comfortably and in no distress. CV: RRR. Without m/r/g. Pulses intact. Brisk cap refill. ABDOMEN: Moderate TTP RLQ. Soft. No distention or guarding. No organomegaly. No CVA tenderness. Bowel sounds present x4. Positive psoas and obturator sign. NEURO: Alert. CN II-XII grossly intact. PSYCH: Age appropriate behavior. Triage Information Reviewed: Yes Abd Pain Female Course/Dx - Course Course Of Treatment: Given her symptoms, it is possible she has an ovarian cyst ?rupture vs appendicitis. I have advised her to seek further evaluation in the ED. She was agreeable to this plan and will go by ambrosio. - Differential Dx/Diagnosis Provider Diagnoses: RLQ pain Discharge - Sign-Out/Discharge Documenting (check all that apply): Discharge/Admit/Transfer - Discharge Plan Condition: Stable Disposition: HOME Referrals: Jose Alberto Morocho MD [Primary Care Provider] - Additional Instructions: Please go to the [facility] [place] for further evaluation of your right lower quadrant pain. - Billing Disposition and Condition Condition: STABLE Disposition: HOME
[2017-08-18 15:03] VITALS: BP 143/86
== END 2017-08-18 15:37 | disposition home or self-care (01) ==
LOC: UCCORT 14:48
DX: R10.31 Right lower quadrant pain (principal); Z88.0 Allergy status to penicillin; Z87.891 Personal history of nicotine dependence
CPT/HCPCS: 81003; 99212; G0463

== ENCOUNTER 2017-08-18 16:30 | Emergency (ER) | payer OTHER ==
[2017-08-18] MEDS ORDERED: NS 0.9% 1000 ML* 1,000 ML IV ONE (18:03)
[2017-08-18] MEDS ORDERED: Morphine VIAL* 4 MG/ML VIAL (1 ml vial) IV PRN (18:03)
[2017-08-18] MEDS ORDERED: Ondansetron INJ* 2 MG/ML VIAL IV ONE (18:03)
--- NOTE | 2017-08-18 18:53 | ED ---
Obed Rodriguez Angela, scribed for Jonathan Hendricks on 08/18/17 at 1818 . Abdominal Pain/Female - HPI Summary HPI Summary: This pt is a 47 y/o female presenting to [facility] for right lower quadrant abdominal pain for the past couple of days. Pt additionally notes nausea, vaginal discharge. Denies vaginal bleeding, fever, vomiting, constipation. Pt reports that she was diagnosed with ovarian cyst on the same location of her pain. PMHx includes acute pancreatitis, cholecystectomy. Denies hx of appendectomy. Allergies to penicillin. - History of Current Complaint Chief Complaint: EDAbdPain Stated Complaint: ABD PAIN Time Seen by Provider: 08/18/17 17:36 Hx Obtained From: Patient Hx Last Menstrual Period: last month Onset/Duration: Lasting Days, Still Present Timing: Days Severity Currently: Severe Pain Intensity: 8 Pain Scale Used: 0-10 Numeric Location: Discrete At: RLQ Radiates: No Aggravating Factor(s): Nothing Alleviating Factor(s): Nothing Associated Signs and Symptoms: Positive: Vaginal Discharge, Nausea. Negative: Fever, Constipation, Vaginal Bleeding, Vomiting Allergies/Adverse Reactions: Allergies Allergy/AdvReac Type Severity Reaction Status Date / Time adhesive tape Allergy Blisters Verified 08/18/17 14:54 Penicillins Allergy Swelling Verified 08/18/17 14:54 Environment/Seasonal Hayfever Allergy Sneeze, Uncoded 08/18/17 14:54 Congestion Home Medications: Home Medications Acetaminophen TAB* [Tylenol TAB*] 650 mg PO Q4H PRN 08/18/17 [History Confirmed 08/18/17] Amitriptyline TAB* [Elavil TAB*] 50 mg PO DAILY 08/18/17 [History Confirmed ] Diazepam TAB(*) [Valium TAB(*)] 5 mg PO TID PRN 08/18/17 [History Confirmed ] FLUoxetine CAP* [PROzac CAP*] 20 mg PO DAILY 08/18/17 [History Confirmed ] Ferrous Gluconate TAB* [Fergon TAB*] 325 mg PO BID 08/18/17 [History Confirmed 08/18/17] Gabapentin CAP(*) [Neurontin 400 mg CAP(*)] 800 mg PO TID 08/18/17 [History Confirmed 08/18/17] Meloxicam(NF) [Mobic(NF)] 15 mg PO DAILY PRN 08/18/17 [History Confirmed ] Ondansetron TAB* [Zofran 4 MG Tab*] 4 mg PO Q6H PRN 08/18/17 [History Confirmed 08/18/17] Prazosin CAP* [Minipress CAP*] 2 mg PO DAILY 08/18/17 [History Confirmed ] Senna TAB* [Senokot TAB*] 1 tab PO BEDTIME PRN 08/18/17 [History Confirmed 08/18] Varenicline (NF) [Chantix 1 MG TAB (NF)] 1 mg PO DAILY 08/18/17 [History Confirmed 08/18/17] guaiFENesin ER TAB [Mucinex*] 600 mg PO BID PRN 08/18/17 [History Confirmed ] PMH/Surg Hx/FS Hx/Imm Hx Endocrine/Hematology History: Reports: Hx Anemia - NO MEDS Denies: Hx Diabetes Cardiovascular History: Denies: Hx Congestive Heart Failure, Hx Hypertension, Hx Pacemaker/ICD Respiratory History: Reports: Hx Chronic Obstructive Pulmonary Disease (COPD), Other Respiratory Problems/Disorders GI History: Reports: Hx Gall Bladder Disease - domitila 05/2014, Hx Gastroesophageal Reflux Disease - NO MEDS, Other GI Disorders - pancreatitis, NO PROBLEMS NOW History: Reports: Other Problems/Disorders - HX OF UTI, NONE RECENTLY Denies: Hx Renal Disease Musculoskeletal History: Reports: Hx Back Problems Sensory History: Reports: Hx Contacts or Glasses Opthamlomology History: Reports: Hx Contacts or Glasses Neurological History: Reports: Hx Headaches, Hx Migraine - R/T CHRONIC NECK PROBLEM Psychiatric History: Reports: Hx Depression - BIPOLAR, NO MEDS PRESENTLY Denies: Hx Panic Disorder - Surgical History Surgery Procedure, Year, and Place: TONSILLECTOMY. 1995 BILATERAL TUBAL LIGATION, [facility]. 2010 LYMPH NODE RIGHT SIDE BACK OF SHOULDER REMOVED, [place]. 05/29/2014 LAPAROSCOPIC CHOLECYSTECTOMY, [facility]. left ovary & fallopian tube removal 09/2015 Hx Anesthesia Reactions: Yes - GALLBLADDER - DIFFICULTY WAKING - VS DROPPED X 2 Infectious Disease History: No Infectious Disease History: Denies: Traveled Outside the [place] in Last 30 Days - Family History Known Family History: Positive: Cardiac Disease, Hypertension - Social History Alcohol Use: Occasionally Substance Use Type: Reports: Prescribed Smoking Status (MU): Former Smoker Type: Cigarettes Amount Used/How Often: 1/2 PPD Length of Time of Smoking/Using Tobacco: 30 YEARS Have You Smoked in the Last Year: Yes Review of Systems Negative: Fever, Chills ENT: Negative Cardiovascular: Negative Positive: Abdominal Pain, Nausea. Negative: Vomiting, Other - constipation Positive: discharge. Negative: other - vaginal bleeding All Other Systems Reviewed And Are Negative: Yes Physical Exam - Summary Physical Exam Summary: Appearance: Well appearing, no pain distress Skin: warm, dry, reflects adequate perfusion Head/face: normal Eyes: EOMI, DARRICK ENT: normal Neck: supple, nontender Respiratory: CTA, breath sounds present Cardiovascular: RRR, pulses symmetrical Abdomen: soft, tenderness in the right lower quadrant. Bowel: present Musculoskeletal: normal, strength/ROM intact Neuro: normal, sensory motor intact, A&Ox3 Triage Information Reviewed: Yes Vital Signs On Initial Exam: Initial Vitals Temp Pulse Resp BP Pulse Ox 96.9 F 87 16 143/97 98 08/18/17 16:37 08/18/17 16:37 08/18/17 16:37 08/18/17 16:37 08/18/17 16:37 Vital Signs Reviewed: Yes Diagnostics - Vital Signs Vital Signs Temp Pulse Resp BP Pulse Ox 08/18/17 16:37 96.9 F 87 16 143/97 98 - Laboratory Lab Statement: Any lab studies that have been ordered have been reviewed, and results considered in the medical decision making process. - CT Abdomen/pelvis CT CT Interpretation Completed By: Radiologist - CT is still pending, please see [facility]. Abdominal Pain Fem Course/Dx - Course Course Of Treatment: Pt is a 47 y/o female presenting to [facility] for right lower quadrant abdominal pain for the past couple of days. Blood work, urinalysis and CT abdomen/pelvis were obtained. In the ED course the pt was given IV fluids, morphine, and zofran. Lab work and CT are still pending. Therefore pt will be signed out to Dr. Marrufo, pending disposition, awaiting lab results and CT A/ P. Dx: abdominal pain, rule out appendicitis - Diagnoses Differential Diagnosis: Positive: Appendicitis, Diverticulitis, Ovarian Cyst, Urinary Tract Infection Provider Diagnoses: Abdominal pain Discharge - Sign-Out/Discharge Documenting (check all that apply): Sign-Out Patient Signing out patient TO: Fan Marrufo - Discharge Plan Condition: Stable Discharge Disposition Comment: signed out to Dr. Marrufo, pending dispo, awaiting lab work and CT. Referrals: No Primary Care Phys,NOPCP [Primary Care Provider] - - Billing Disposition and Condition Condition: STABLE The documentation as recorded by the Obed hernandez Angela accurately reflects the service I personally performed and the decisions made by , Jonathan Hendricks.
[2017-08-18 19:13] LABS: INR 0.89 (0.77-1.02)
[2017-08-18 19:15] LABS: ABS Basophils 0 10^3/ul (0-0.2); ABS Eosinophils 0.3 10^3/ul (0-0.6); ABS Lymphocytes 1.9 10^3/ul (1.0-4.8); ABS Monocytes 0.6 10^3/ul (0-0.8); ABS Neutrophils 4.1 10^3/ul (1.5-7.7); ABS Nucleated RBC 0 10^3/ul; Eosinophil % 3.7 % (0-6); Hematocrit 39 % (35-47); Hemoglobin 13.4 g/dl (12.0-16.0); Lymphocyte % 28.2 % (25-47); Mean Corpuscular HGB Conc 34 g/dl (31-36); Mean Corpuscular Hemoglobin 32 pg (27-31); Mean Corpuscular Volume 93 fL (80-97); Mean Platelet Volume 7.8 um3 (7.4-10.4); Nucleated Red Blood Cells % 0.1; Platelet Count 344 10^3/ul (150-450); Red Blood Count 4.18 10^6/ul (4.0-5.4); Red Cell Distribution Width 13 % (10.5-15); White Blood Count 6.9 10^3/ul (3.5-10.8)
[2017-08-18 19:20] LABS: EGFR Non-African American 68.3 (>60)
[2017-08-18] MEDS ORDERED: Ketorolac INJ* 30 MG/ML 1 ML VIAL ONE (19:57)
[2017-08-18] MEDS ORDERED: Ketorolac INJ* 30 MG/ML 1 ML VIAL IV PUSH ONE (20:00)
[2017-08-18 20:27] VITALS: BP 139/94
--- NOTE | 2017-08-18 20:31 | RAD ---
Indication: Right-sided pelvic pain. Real-time sonography of the pelvis was performed utilizing endovaginal technique. The patient status post left oophorectomy. The uterus measures 9.6 x 5.1 x 6.6 cm. Heterogeneous echotexture is noted. Endometrial echo measures 10 mm. The right ovary measures 3.5 x 2.2 x 1.8 cm with flow in the right ovary. IMPRESSION: Patient is status post left oophorectomy. Right ovary is unremarkable.
[2017-08-18] MEDS ORDERED: Iohexol 300* (CONTRAST) 10 ML SDV IV ONE (21:26)
--- NOTE | 2017-08-18 21:57 | RAD ---
Indication: Right lower quadrant pain. Contrast: Administered 100.3 ml of OMNIPAQUE 300 mg/ml CT of the abdomen and pelvis was performed after oral and IV contrast administration. Coronal and sagittal reconstructed images were obtained. Comparison is made with previous exam dated September 17, 2014. Lung bases demonstrate no pleural fluid, nodules or masses. Heart is of normal size without evidence pericardial effusion. Liver is normal in size. No focal lesions or intrahepatic ductal dilatation is noted. The patient is status post cholecystectomy. The spleen is normal in size. Common duct is not dilated. Pancreas demonstrates no mass or pancreatic duct dilatation. No adrenal lesions are noted. The kidneys demonstrate symmetric nephrograms without evidence of hydronephrosis. Aorta and inferior vena cava are unremarkable. No retroperitoneal lymphadenopathy is noted. Small bowel demonstrates no abnormal dilatation. CT of the pelvis demonstrates trace amount of free fluid in the cul-de-sac. Uterus is grossly unremarkable. Follicular cysts are noted in both ovaries. The colon is filled with contrast with no evidence of bowel obstruction. The appendix is visualized and is of normal caliber and contrast-filled. The tip of the appendix appears to be deep within the pelvis. No hernias are noted. The bony structures are grossly unremarkable. IMPRESSION: Normal appendix. No abnormal masses or fluid collections are noted. Trace amount of free fluid is noted cul-de-sac.
--- NOTE | 2017-08-18 22:37 | ED ---
Progress - Progress Note Progress Note: I discussed some care from Dr. Hendricks. The patient is experiencing recurrent abdominal pain felt worse in the right lower abdomen and pelvis. CT scan was ordered. Patient was examined and her pain seems to be more right pelvic in nature. Ultrasound was obtained. This was negative. The CT scan was performed and shows normal appendix and no surgical disease. The patient's history and visits were reviewed. She has had 7 visits so far this year all with pain related complaints. Her last visit to the ER she had been explained that she would not receive for their opiate medications from the ER. Here, she was ordered morphine however refused this and wanted Dilaudid. There is concern for opiate dependence. Patient states that she has had some loose stools and no constipation. There is concern that perhaps this is a withdrawal syndrome. Of course the patient denies this. She does have an upcoming appointment with a primary care physician. She previously saw pain management but hasn't been in some time. Course/Dx - Course Course Of Treatment: Pt is a 47 y/o female presenting to [facility] for right lower quadrant abdominal pain for the past couple of days. Blood work, urinalysis and CT abdomen/pelvis were obtained. In the ED course the pt was given IV fluids, morphine, and zofran. Lab work and CT are still pending. Therefore pt will be signed out to Dr. Marrufo, pending disposition, awaiting lab results and CT A/ P. Dx: abdominal pain, rule out appendicitis - Diagnoses Provider Diagnoses: Right-sided abdominal pain of unknown cause, Opiate dependence Discharge - Sign-Out/Discharge Documenting (check all that apply): Discharge/Admit/Transfer - Discharge Plan Condition: Good Disposition: HOME Patient Education Materials: Narcotic Abuse (ED), Acute Abdominal Pain (ED) Referrals: [facility] [place] PHYSICIAN REFERRAL [Outside] No Primary Care Phys,NOPCP [Primary Care Provider] - Additional Instructions: You may not be prescribed additional opiate medication from the ER. This was explained to previously. Follow-up with your doctor or through the physician referral line tomorrow. Take ibuprofen and/or Tylenol for discomfort. Your studies here today were normal. - Billing Disposition and Condition Condition: GOOD Disposition: HOME
== END 2017-08-18 23:04 | disposition home or self-care (01) ==
LOC: ED 16:30
DX: R10.31 Right lower quadrant pain (principal); F11.20 Opioid dependence, uncomplicated; Z90.721 Acquired absence of ovaries, unilateral; Z87.891 Personal history of nicotine dependence; Z88.0 Allergy status to penicillin
CPT/HCPCS: 36415; 74177; 76830; 80053; 83605; 83690; 84132; 84450; 84702; 85025; 85610; 85730; 96361; 96374; 96375; 99283; J1885; J2270; J2405; Q9967

== ENCOUNTER 2017-10-02 13:16 | Emergency (ER) | payer OTHER ==
--- OUTSIDE RECORDS SUMMARY | 2017-10-02 13:27 | XMS REPORT ---
:1970 External Reference #:[id number] Author Organization [facility] 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 Willa Lira MD Primary Care Physician Unavailable Payers Type Date Identification Numbers Payment Provider Subscriber Commercial Policy Number: [id number] [facility] Ayse Arteaga PayID: [id number] [address] [place] [address] [place] Part [place] Effective: Policy Number: Medicaid/[facility] Ayse 2017 [id number] Mima Arteaga PayID: [id number] [address] [place] [address] Problems Description No Information Family History Date Family Member(s) Problem(s) Comments General Not Known - Adopted Father Not Known - Adopted Mother Not Known - Adopted Children 5 Social History Type Date Description Comments Work Status Unemployed ETOH Use Occasionally consumes alcohol Smoking Patient is a former smoker Recreational Drug Use Denies Drug Use Daily Caffeine Consumes on average 2 cups of regular coffee per day Daily Caffeine Consumes on average 16oz of soda per day Allergies, Adverse Reactions, Alerts Date Description Reaction Status Severity Comments 09/13/2017 Penicillin active Medications Medication Date Status Form Strength Qnty SIG Indications Ordering Provider Nicholas 09/28/19 Active Misc 1units use for M51.37 Pankaj, 18 stability Willa Kan, and balance Britany Meloxicam 00/00/00 Active Tablets 15mg Take One M51.37 Unknown 00 Tablet By Mouth Every Day For 7 Days Then Daily as Needed For M50.30 M79.604 Esomeprazole Magnesium Active Capsules DR 20mg K21.0 Unknown K30 K86.1 Prazosin HCL Active Capsules 2mg Take One F51.5 Unknown Capsule By Mouth Every Day Ferrous Gluconate Active Tablets 324(38Fe) D50.9 Unknown mg Ondansetron HCL Active Tablets 4mg Take One K86.1 Unknown Tablet By Mouth Every 8 Hours as Needed For Nausea R11.0 Chantix Active Tablets 1mg 60tabs 1 tab by mouth Unknown every day as needed Fluoxetine HCL Active Capsules 20mg Take One Capsule F41.9 Unknown By Mouth Every Day F33.9 F43.12 Loratadine Active Tablets 10mg 90tabs 1 tab by J30.9 Unknown mouth every day as needed Senexon-S Active Tablets 8.6-50mg 2 by mouth K59.00 Unknown every night Gabapentin Active Tablets 800mg 90tabs take one M50.30 Pankaj , Ahmad tablet by Britany Kan mouth three times a day M51.37 M79.604 Vital Signs Date Vital Result Comment 09/27/2017 BP Systolic 124 mmHg BP Diastolic 74 mmHg Height 65 inches 5'5" Weight 165.00 lb BMI (Body Mass Index) 27.5 kg/m2 Heart Rate 78 /min 09/13/2017 BP Systolic 124 mmHg BP Diastolic 84 mmHg Height 65 inches 5'5" Weight 165.00 lb BMI (Body Mass Index) 27.5 kg/m2 Heart Rate 105 /min Respiratory Rate 18 /min Results Test Date Test Result H/L Range Note CBC Auto Diff 09/13/2017 White Blood Count 5.8 10^3/uL 3.5-10.8 Red Blood Count 4.65 10^6/uL 4.0-5.4 Hemoglobin 14.9 g/dL 12.0-16.0 Hematocrit 44 % 35-47 Mean Corpuscular Volume 95 fL 80-97 Mean Corpuscular Hemoglobin 32 pg High 27-31 Mean Corpuscular HGB Conc 34 g/dL 31-36 Red Cell Distribution Width 14 % 10.5-15 Platelet Count 406 10^3/uL 150-450 Mean Platelet Volume 8.0 um3 7.4-10.4 Abs Neutrophils 3.7 10^3/uL 1.5-7.7 Abs Lymphocytes 1.4 10^3/uL 1.0-4.8 Abs Monocytes 0.5 10^3/uL 0-0.8 Abs Eosinophils 0.1 10^3/uL 0-0.6 Abs Basophils 0.1 10^3/uL 0-0.2 Abs Nucleated RBC 0 10^3/uL Granulocyte % 64.3 % 38-83 Lymphocyte % 24.4 % Low 25-47 Monocyte % 7.7 % High 0-7 Eosinophil % 2.5 % 0-6 Basophil % 1.1 % 0-2 Nucleated Red Blood Cells % 0.1 Comp Metabolic Panel 09/13/2017 Sodium 140 mmol/L 139-145 Potassium 4.3 mmol/L 3.5-5.0 Chloride 104 mmol/L 101-111 Co2 Carbon Dioxide 26 mmol/L 22-32 Anion Gap 10 mmol/L 2-11 Glucose 101 mg/dL High 70-100 Blood Urea Nitrogen 14 mg/dL 6-24 Creatinine 0.90 mg/dL 0.51-0.95 BUN/Creatinine Ratio 15.6 8-20 Calcium 9.4 mg/dL 8.6-10.3 Total Protein 7.4 g/dL 6.4-8.9 Albumin 4.4 g/dL 3.2-5.2 Globulin 3.0 g/dL 2-4 Albumin/Globulin Ratio 1.5 1-3 Total Bilirubin 0.20 mg/dL 0.2-1.0 Alkaline Phosphatase 85 U/L 34-104 Alt 12 U/L 7-52 Ast 16 U/L 13-39 Egfr Non- 66.5 >60 Egfr 85.6 >60 1 Lipid Profile (Trig/Chol/HDL) 09/13/2017 Triglycerides 207 mg/dL 2 Cholesterol 251 mg/dL 3 HDL Cholesterol 56.0 mg/dL 4 LDL Cholesterol 154 mg/dL 5 Laboratory test finding 09/13/2017 Vitamin D Total 25(Oh) 29.3 ng/mL 20- 50 TSH (Thyroid Stim Horm) 1.10 mcIU/mL 0.34-5.60 Erythrocyte Sed Rate 17 mm/Hr High 0-14 CBS W/Automated Diff 09/09/2017 White Blood Count 7.6 K/uL 3.1-10.7 6 Red Blood Count 4.51 M/uL 3.90-5.40 6 Hemoglobin 14.6 gm/dL 11.6-15.8 6 Hematocrit 42.3 % 36.0-46.1 6 Mean Cell Volume 93.8 fl 80.9-99.0 6 Mean Corpuscular HGB 32.4 pg 25.9-32.7 6 Mean Corpuscular HGB Conc 34.5 g/dL High 30.8-34.3 6 Platelet Count 426 K/uL High 155-360 6 Red Cell Distri Width SD 43.4 fl 3-47 6 Red Cell Distri Width %CV 12.9 % 11.7-14.4 6 Mean Platelet Volume 9.7 fL 8.9-12.4 6 Neut% 65.8 % 40.4-72.8 6 Lymph % 24.9 % 20.0-42.0 6 Berrien % 7.2 % 4.3-13.2 6 Eo% 1.4 % 0.0-6.6 6 Bas% 0.7 % 0.0-1.1 6 Neut# 5.03 K/uL 1.8-7.0 6 Lymph # 1.90 K/uL 1.0-4.0 6 Berrien # 0.55 K/uL 0.3-0.9 6 Eos # 0.11 K/uL 0.0-0.5 6 Baso # 0.05 K/uL 0.0-0.1 6 1 Because ethnic data is not always readily available, this report includes an eGFR for both -Americans and non- Americans. The National Kidney Disease Education Program (NKDEP) does not endorse the use of the MDRD equation for patients that are not between the ages of 18 and 70, are , have extremes of body size, muscle mass, or nutritional status, or are non- or non-. According to the National Kidney Foundation, irrespective of diagnosis, the stage of the disease is based on the level of kidney function: Stage Description GFR(mL/min/1.73 m(2)) 1 Kidney damage with normal or decreased GFR 90 2 Kidney damage with mild decrease in GFR 60-89 3 Moderate decrease in GFR 30-59 4 Severe decrease in GFR 15-29 5 Kidney failure <15 (or dialysis) 2 Desirable: <150 Borderline High: 150-199 High: 200-499 Very High: >500 3 Desirable: <200 Borderline High: 200-239 High: >239 4 Low: <40 Desirable: 40-60 High: >60 5 Desirable: <100 Near Optimal: 100-129 Borderline High: 130-159 High: 160-189 Very High: >189 6 PANCREATITIS, DIARRHEA Procedures Date CPT Code Description Status 09/13/2017 00656 Visual Screening Test Completed 09/13/2017 [id number] Audiometry, Bekesy, Screening Completed Encounters Type Date Location Provider CPT E/M Dx Office Visit 09/27/2017 9:00a [facility] Willa Lira M.D. 56140 M51.37 M50.30 M79.604 M54.17 E78.2 E55.9 F41.9 F33.9 F43.12 G47.00 K21.0 K30 J44.9 L20.9 J30.9 K86.1 N39.46 J45.909 M25.571 H54.52A2 F17.211 F51.5 D50.9 K59.00 R11.0 R73.01 N60.29 F10.10 Office Visit 09/13/2017 8:15a [facility] Willa Lira M.D. 62057 Z00.01 Z12.31 M51.37 M50.30 M79.604 M54.17 E78.2 E55.9 F41.9 F33.9 Z68.27 F43.12 G47.00 K21.0 K30 J44.9 L20.9 J30.9 K86.1 N39.46 J45.909 M25.571 H54.52A2 F17.211 F51.5 D50.9 K59.00 R11.0 Plan of Care 09/27/2017 - Willa Lira M.D.M51.37 Other intervertebral disc degeneration , lumbosacral regionNew Medication:CaneComments:EXERCISE/HEAT /MESSAGEAVOID HEAVY LIFTING WT LOSSTYLENOL OR MOTRIN PRN DUR JJNCPAWE88.30 Other cervical disc degeneration, unsp cervical regionComments:EXERCISE/HEAT /MESSAGEAVOID HEAVY LIFTING WT LOSSTYLENOL OR MOTRIN PRN DUR HNMINQXR81.604 Pain in right legComments:TYLENOL OR MOTRIN PRN EXERCISE/HEAT/MESSAGE DUR BRIKDZOJ37.17 Radiculopathy, lumbosacral regionComments:EXERCISE/HEAT /MESSAGE AVOID HEAVY LIFTING WT LOSS TYLENOL OR MOTRIN PRN DUR IYCEIDAK80.2 Mixed hyperlipidemiaComments:DIET REVIEWED CONTINUE DIETWT LOSSF/U LAB FBWE55.9 Vitamin D deficiency, unspecifiedComments:INCREASE EXPOSURE TO SUNREVIEW OF DIETF41.9 Anxiety disorder, unspecifiedComments:COUNCELLING AND REASSURANCE RELAXATION TECHNIQUES DISCUSSEDCOUNSELED RE: STRESSORS IN LIFE AVOID ALLENERGY/ HIGH CAFFEINE ZADSVNC86.9 Major depressive disorder, recurrent, unspecifiedComments:COUNCELLING AND REASSURANCE RELAXATION TECHNIQUES DISCUSSED COUNSELED RE: STRESSORS IN LIFEF43.12 Post-traumatic stress disorder, chronicComments:COUNCELLING AND REASSURANCE RELAXATION TECHNIQUES DISCUSSED COUNSELED RE: STRESSORS IN LIFEG47.00 Insomnia, unspecifiedComments:COUNCELLING AND REASSURANCE RELAXATION TECHNIQUES DISCUSSED COUNSELED RE: STRESSORS IN LIFE TYLENOLPM OR MOTRIN PM PRNK21.0 Gastro-esophageal reflux disease with esophagitisComments:AVOID CAFFEINE, ETOH AND SPICY FOODSTUMS OR MYLANTA PRN CALL WITH PROBLEMS OR OPROCLSDG38 Functional dyspepsiaComments:AVOID CAFFEINE, ETOH AND SPICY FOODSTUMS OR MYLANTA PRN CALL WITH PROBLEMS OR YRGUGCXWV56.9 Chronic obstructive pulmonary disease, unspecifiedComments:INCREASE PO BCABRTRSFL67.9 Atopic dermatitis, unspecifiedComments:SKIN CARE INSTRUCTIONS LOTION OR BABY OIL 2-3 APPLICATION PER DAYUSE MOISTURIZING SOAPAVOID PROLONGED WATER EXPOSUREAVOID USING HOT WATER IN WNRKNEO68.9 Allergic rhinitis, unspecifiedComments:INCREASE PO FLUID USE ANTIHISTAMINE PRN SECOND HAND SMOKING ONOXHCSHQH40.1 Other chronic pancreatitisComments:ASYMPTOMATIC AND STABLE AVOID ETOH ABUSE F/ULABReferral:Nelson Pires MD, LlouxnipxpoiadmaR07.46 Mixed incontinenceComments:COUNCELED SKIN CARE INSTRUCTIONSUSE DIAPER PRNJ45.909 Unspecified asthma, uncomplicatedComments:MDI / NEBULIZER [place] PRN AVOID EXPOSURE TO SMOKING OR AKKXMI27.571 Pain in right ankle and joints of right footComments: EXERCISE/HEAT/MESSAGETYLENOL OR MOTRIN PRNACE WRAP PRN USE SHOES INSERTS/ VRSFZXIJ76.52A2 Low vision left eye category 2, normal vision right eyeF17.211 Nicotine dependence, cigarettes, in remissionComments:ENCOURAGED TO CONTINUE WITH SMOKING GMEUEPOGXY09.5 Nightmare disorderComments:COUNCELLING AND REASSURANCE EXTENDED CONTINUE PRESCRIBED MEDICATIONS RELAXATION TECHNIQUES DISCUSSED COUNSELED RE: STRESSORS IN LIFED50.9 Iron deficiency anemia, unspecifiedComments:DIET SPPLEMENTIRON SUPPLEMENT NEEDEDF/U LABK59.00 Constipation, unspecifiedComments:MOM OR MIRALAX PRNHIGH FIBER DIETINCREASE PO RONTHY39.0 NauseaComments:INCREASE PO FLUID SMALL SIPS OF FLUIDS AT A TIME SMALL FREQUENT MEALS F/U DIRECTED CALL IF YOU HAVE VOMITING OR WITH S/S OF TFEMQQZFPXQT61.01 Impaired fasting glucoseComments:F/U HGAICFS QAC AN HS PRNLOW GLUCOSE DIETN60.29 Fibroadenosis of unspecified breastNew Xrays:Ultrasound Right Breast - CompleteUltrasound Left Breast-FwqovifaS13.10 Alcohol abuse, uncomplicatedComments:ETOH ABSTINENCECOUNCELLING AND REASSURANCE
--- OUTSIDE RECORDS SUMMARY | 2017-10-02 13:27 | XMS REPORT ---
:1970 External Reference #:[id number] Author Organization [facility] 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 Ayse Arteaga PayID: [id number] [address] [place] [address] Medigap Part B Effective: Policy Number: Medicaid/[facility] Ayse 2017 [id number] Mima Arteaga PayID: [id number] [address] [place] [address] Problems Description No Information Family History Date [...] Form Strength Qnty SIG Indications Ordering Provider Meloxicam Active Tablets 15mg Take One M51.37 Unknown 0 Tablet By Mouth Every Day For 7 [...] M79.604 Vital Signs Date Vital Result Comment 09/13/2017 BP Systolic 124 mmHg BP Diastolic 84 mmHg Height 65 inches 5'5" Weight 165.00 lb BMI (Body Mass Index) 27.5 kg/m2 Heart Rate 105 /min Respiratory Rate 18 /min Results Test Date Test Result H/L Range Note Laboratory test finding 09/13/2017 Vitamin D Total <pending> 25(Oh) TSH (Thyroid Stim Horm) <pending> Erythrocyte Sed Rate <pending> CBS W/Automated Diff 09/09/2017 White Blood Count 7.6 K/uL 3.1-10.7 1 Red Blood Count 4.51 M/uL 3.90-5.40 1 Hemoglobin 14.6 gm/dL 11.6-15.8 1 Hematocrit 42.3 % 36.0-46.1 1 Mean Cell Volume 93.8 fl 80.9-99.0 1 Mean Corpuscular HGB 32.4 pg 25.9-32.7 1 Mean Corpuscular HGB Conc 34.5 g/dL High 30.8-34.3 1 Platelet Count 426 K/uL High 155-360 1 Red Cell Distri Width SD 43.4 fl 3-47 1 Red Cell Distri Width %CV 12.9 % 11.7-14.4 1 Mean Platelet Volume 9.7 fL 8.9-12.4 1 Neut% 65.8 % 40.4-72.8 1 Lymph % 24.9 % 20.0-42.0 1 Wilkes % 7.2 % 4.3-13.2 1 Eo% 1.4 % 0.0-6.6 1 Bas% 0.7 % 0.0-1.1 1 Neut# 5.03 K/uL 1.8-7.0 1 Lymph # 1.90 K/uL 1.0-4.0 1 Wilkes # 0.55 K/uL 0.3-0.9 1 Eos # 0.11 K/uL 0.0-0.5 1 Baso # 0.05 K/uL 0.0-0.1 1 1 PANCREATITIS, DIARRHEA Procedures Date CPT Code Description Status 09/13/2017 14757 Visual Screening Test Completed 09/13/2017 37734 Audiometry, Bekesy, Screening Completed Encounters Type Date Location Provider CPT E/M Dx Office Visit 09/13/2017 8:15a [facility] Willa Lira M.D. 36776 Z00.01 Z12.31 M51.37 M50.30 M79.604 M54.17 E78.2 E55.9 F41.9 F33.9 F43.12 G47.00 K21.0 K30 J44.9 L20.9 J30.9 K86.1 N39.46 J45.909 M25.571 H54.52A2 F17.211 F51.5 D50.9 K59.00 R11.0 Plan of Care Future Appointment(s):09/21/2017 1:00 pm - [facility].D[facility] at [facility]09/13/2017 - Willa Lira M.D.Z00.01 Encounter for general adult medical exam w abnormal findingsComments:GOOD NUTRITION /EXERCISEDENTAL/ FLOSSING/ SELF CAREDROWNING/ SUN SAFETYSEAT BELT/ DRIVING SAFETYSPORT BIKE/ HELMET USESPORTS/ INJURY PREVENTIONVIOLENCE PREVENTION/ GUN SAFETYPARENTING ADVICE"SAFE AT HOME"SEX EDUCATION/ COUNSELINGBREAST/ TESTICULAR SELF EXAMEDUCATION GOALS/ ACTIVITIESLIMIT TV/ INTERNETUSETOBACCO/ ALCOHOL/ DRUGS/ INHALANTSPEER REFUSAL SKILLSSOCIAL INTERACTIONFAMILY FUNCTIONINGSELF CONTROLDEPRESSION/ ANXIETYNEXT APPOINTMENTYEARLY PHYSICAL WELLNESS EVALUATION F /U WITH OB /SPEECH LANGUAGE SPECIALIST FOR PAPZ12.31 Encntr screen mammogram for malignant neoplasm of breastNew Xrays:Mammography Screening, Bilateral; 2-View Each BreastComments:F/ U AFTER TESTM51.37 Other intervertebral disc degeneration, lumbosacral regionComments:EXERCISE/HEAT /MESSAGEAVOID HEAVY LIFTING WT LOSSTYLENOL OR MOTRIN PRN DUR UBZVXGWA49.30 Other cervical disc degeneration, unsp cervical regionComments:EXERCISE/HEAT /MESSAGEAVOID HEAVY LIFTING WT LOSSTYLENOL OR MOTRIN PRN DUR CHECKEDReferral:[facility], Orthopedic/Phys TherM79.604 Pain in right legComments:TYLENOL OR MOTRIN PRN EXERCISE/HEAT/MESSAGE DUR ZJYZCLRZ20.17 Radiculopathy, lumbosacral regionComments:EXERCISE/HEAT /MESSAGE AVOID HEAVY LIFTING WT LOSS TYLENOL OR MOTRIN PRN DUR SGTRFBZW33.2 Mixed hyperlipidemiaComments:DIET REVIEWED CONTINUE DIETWT LOSSF/U LAB FBWE55.9 Vitamin D deficiency, unspecifiedComments: INCREASE EXPOSURE TO SUNREVIEW OF DIETF41.9 Anxiety disorder, unspecifiedComments:COUNCELLING AND REASSURANCE RELAXATION TECHNIQUES DISCUSSEDCOUNSELED RE: STRESSORS IN LIFE AVOID ALLENERGY/HIGH CAFFEINE FSXDSAN28.9 Major depressive disorder, recurrent, unspecifiedComments: COUNCELLING AND REASSURANCE RELAXATION TECHNIQUES DISCUSSED COUNSELED RE: STRESSORS IN LIFEF43.12 Post-traumatic stress disorder, chronicComments: COUNCELLING AND REASSURANCE RELAXATION TECHNIQUES DISCUSSED COUNSELED RE: STRESSORS IN LIFEG47.00 Insomnia, unspecifiedComments:COUNCELLING AND REASSURANCE RELAXATION TECHNIQUES DISCUSSED COUNSELED RE: STRESSORS IN LIFE TYLENOLPM OR MOTRIN PM PRNK21.0 Gastro-esophageal reflux disease with esophagitisComments:AVOID CAFFEINE, ETOH AND SPICY FOODSTUMS OR MYLANTA PRN CALL WITH PROBLEMS OR IOQDLEKIG54 Functional dyspepsiaComments:AVOID CAFFEINE, ETOH AND SPICY FOODSTUMS OR MYLANTA PRN CALL WITH PROBLEMS OR OADISWDYA67.9 Chronic obstructive pulmonary disease, unspecifiedComments:INCREASE PO SAETLGPTKZ18.9 Atopic dermatitis, unspecifiedComments:SKIN CARE INSTRUCTIONS LOTION OR BABY OIL 2-3 APPLICATION PER DAYUSE MOISTURIZING SOAPAVOID PROLONGED WATER EXPOSUREAVOID USING HOT WATER IN AFQKJRA90.9 Allergic rhinitis, unspecifiedComments:INCREASE PO FLUID USE ANTIHISTAMINE PRN SECOND HAND SMOKING UIUYUCFCLA53.1 Other chronic pancreatitisComments:ASYMPTOMATIC AND STABLE AVOID ETOH ABUSE F/ULABN39.46 Mixed incontinenceComments:COUNCELED SKIN CARE INSTRUCTIONSUSE DIAPER PRNJ45.909 Unspecified asthma, uncomplicatedComments:MDI / NEBULIZER [place] PRN AVOID EXPOSURE TO SMOKING OR HQJIYC02.571 Pain in right ankle and joints of right footComments:EXERCISE/HEAT/MESSAGETYLENOL OR MOTRIN PRNACE WRAP PRN USE SHOES INSERTS/ VKOXIZVM30.52A2 Low vision left eye category 2, normal vision right eyeReferral:Aiyana Lucas, SjagivjfndjpiC40.211 Nicotine dependence, cigarettes, in remissionComments: ENCOURAGED TO CONTINUE WITH SMOKING CZPEGYPSUN58.5 Nightmare disorderComments: COUNCELLING AND REASSURANCE EXTENDED CONTINUE PRESCRIBED MEDICATIONS RELAXATION TECHNIQUES DISCUSSED COUNSELED RE: STRESSORS IN LIFED50.9 Iron deficiency anemia, unspecifiedComments:DIET SPPLEMENTIRON SUPPLEMENT NEEDEDF/ U LABK59.00 Constipation, unspecifiedComments:MOM OR MIRALAX PRNHIGH FIBER DIETINCREASE PO NSJZCH55.0 NauseaComments:INCREASE PO FLUID SMALL SIPS OF FLUIDS AT A TIME SMALL FREQUENT MEALS F/U DIRECTED CALL IF YOU HAVE VOMITING OR WITH S/S OF DEHYDRATION
[2017-10-02 13:34] VITALS: BP 119/85
--- NOTE | 2017-10-02 13:54 | UC ---
Abdominal Pain Female HPI - HPI Summary HPI Summary: Patient presents to urgent care complaining of 4 days of escalating right lower quadrant pain. Patient states she also has discomfort in the left upper quadrant. Patient states presently 2 months ago was diagnosed with a cyst on her right ovary. Patient states she had have her left ovary removed due to cysts. Patient states she thinks this is the pain is getting worse. Patient last menses was on 28 August. Patient also reports left upper quadrant pain and nausea. Patient states she has chronic pancreatitis which causes her nausea. However the left upper quadrant pain is new and different. Patient states she' s been having cramping with blood in her stool. No black stool. Patient denies lightheadedness. No fevers or chills. No chest pain or shortness of breath. Patient has been taking Tylenol with little improvement. Patient took 1 g of Tylenol approximately 3 hours prior to arrival. Patient states she is newly established with Dr. Wetzel as her primary. Patient has upcoming appointments with both GI as well as [facility]. Both the specialist or nail. Patient states she has chronic pain for which she is evaluated and followed in a pain center in [place]. Patient states she called her new [facility] office yesterday to see if she could be seen but was told she should seek emergency care if the pain was severe. Patient tried to "tough it out" but couldn't so she came here today Pt's medications reviewed this visit. - History of Current Complaint Chief Complaint: UCAbdominalPain Stated Complaint: ABDOMINAL PAIN Time Seen by Provider: 10/02/17 13:49 Hx Obtained From: Patient, Medical Records Hx Last Menstrual Period: 08/28/17 Onset/Duration: Gradual Onset Timing: Constant Severity Initially: Moderate Severity Currently: Severe Pain Intensity: 9 Allergies/Adverse Reactions: Allergies Allergy/AdvReac Type Severity Reaction Status Date / Time adhesive tape Allergy Blisters Verified 10/02/17 13:30 Penicillins Allergy Swelling Verified 10/02/17 13:30 Environment/Seasonal Hayfever Allergy Sneeze, Uncoded 10/02/17 13:30 Congestion PMH/Surg Hx/FS Hx/Imm Hx Previously Healthy: Yes GI/ History: Other Other GI/ History: ovarian cysts Neurological History: Other Other Neurological History: chronic pain - Surgical History Surgical History: Yes Surgery Procedure, Year, and Place: TONSILLECTOMY. 1995 BILATERAL TUBAL LIGATION, [facility]. 2010 LYMPH NODE RIGHT SIDE BACK OF SHOULDER REMOVED, [place]. 05/29/2014 LAPAROSCOPIC CHOLECYSTECTOMY, [facility]. left ovary & fallopian tube removal 09/2015 - Family History Known Family History: Positive: Cardiac Disease, Hypertension - Social History Occupation: Unemployed Lives: With Family Alcohol Use: Occasionally Substance Use Type: None Smoking Status (MU): Former Smoker Type: Cigarettes Amount Used/How Often: 1/2 PPD Length of Time of Smoking/Using Tobacco: 30 YEARS Have You Smoked in the Last Year: Yes When Did the Patient Quit Smoking/Using Tobacco: 09/2016 Household Exposure Type: Cigarettes - Immunization History Most Recent Influenza Vaccination: 2015 Review of Systems Constitutional: Negative Cardiovascular: Negative Gastrointestinal: Abdominal Pain, Nausea Motor: Negative Neurovascular: Negative Neurological: Negative All Other Systems Reviewed And Are Negative: Yes Physical Exam - Summary Physical Exam Summary: Vital Signs Reviewed: Yes A+Ox3, moderate, distractable when asking questions and when pt reviewed her personal calendar Eyes: Conjunctiva Clear, DARRICK,EOM intact and full ENT: Hearing grossly normal TM x 2 clear, mmoist, uvula midline, no exudate, no erythema Neck: Positive: Supple Respiratory: Positive: No respiratory distress, No accessory muscle use + CTA throughout no w/r Cardiovascular: RRR nl s1, s2 no m/r CBT <2 sec abd soft + BS +TTP RLQ, LUQ no guarding, no rebound soft No CVA Musculoskeletal Exam: JARAMILLO x 4 without difficulty Strength Intact, ROM Intact Neurological: Positive: Alert, + sensation throughout Psychological: Positive: Normal Response To Family Skin: Positive: no rash, no ecchymosis Triage Information Reviewed: Yes Vital Signs: Initial Vital Signs Temp 98.3 F 10/02/17 13:26 Pulse 82 10/02/17 13:26 Resp 15 10/02/17 13:26 BP 119/85 10/02/17 13:26 Pulse Ox 100 10/02/17 13:26 Abd Pain Female Course/Dx - Course Course Of Treatment: Patient presents emergency Department with 4 days progressive right lower quadrant and left upper quadrant pain. Patient states she's been having some bright red blood in stools as well. Patient states she' s got a history of right ovarian cysts and feels that this was the cause of her discomfort. Patient was unable to get into her brand-new [facility] yesterday was directed to urgency department. Patient waited until today and came here. On exam patient with tenderness left upper quadrant and right lower quadrant. Patient moderate discomfort was somewhat distractible with conversation. I discussed with patient that she likely needs some lab work given her report of bright red blood per stool and history of hepatitis. Also discussed with patient may need ultrasound to evaluate for ovarian cyst and torsion. Expressed the patient has limited imaging here to oral contrast for concern of colitis. Spleen the patient these were just potential plans of care but none which could be completed here to urgent care. The patient that I reviewed her ultrasound as well as CT scan that was done in July 2017. Of note both of these studies were not concerning. He states his pain is much more severe than what she had at the time. I discussed with patient options regarding plan of care and further evaluation. Recommended patient to emergency. Patient states he does not want to go to [facility] as she doesn't have current care. Patient states she would like to go to [facility]. I offered patient transfer by ambulance to get the [facility] as she stated that transportation would be difficult for her. Patient declined this offer stating she will go home and then figured out, probably a Medicaid. N offered EMS transfer and patient declined. Do not give any analgesias patient took Tylenol and NSAIDs not indicated with report of GI bleed. Expressed to patient that if pain returned, increased, she was vomiting, and felt lightheaded, or any other concerns she should immediately call 911 persistence. Patient states understanding and agreement with plan. Was discharged urgent care center with recommendation for further evaluation at the emergency department - Differential Dx/Diagnosis Provider Diagnoses: abdominal pain. BRBPR. uncontrolled pain Discharge - Sign-Out/Discharge Documenting (check all that apply): Discharge/Admit/Transfer - Discharge Plan Condition: Stable Disposition: HOME Patient Education Materials: Acute Abdominal Pain (ED) Referrals: Willa Lira MD [Primary Care Provider] - Additional Instructions: The doctor that evaluated you today recommends you go to the emergency department for further treatment and evaluation or your abdominal pain. You were offered transfer by ambulance, but decided to arrange transportation. If you pain become uncontrolled, you develop lightheadedness, uncontrolled vomiting or have any other concerns, call 911 for assistance - Billing Disposition and Condition Condition: STABLE Disposition: Home
== END 2017-10-02 14:23 | disposition home or self-care (01) ==
LOC: UCCORT 13:16
DX: R10.31 Right lower quadrant pain (principal); R10.12 Left upper quadrant pain; K62.5 Hemorrhage of anus and rectum; N83.201 Unspecified ovarian cyst, right side; G89.29 Other chronic pain; K86.1 Other chronic pancreatitis; Z80.0 Family history of malignant neoplasm of digestive organs; Z91.09 Other allergy status, other than to drugs and biological substances; Z90.49 Acquired absence of other specified parts of digestive tract; Z90.721 Acquired absence of ovaries, unilateral; Z87.891 Personal history of nicotine dependence
CPT/HCPCS: 81003; 84702; 87086; 99212; G0463

== ENCOUNTER 2017-10-03 10:26 | Emergency (ER) | payer OTHER ==
[2017-10-03 11:11] VITALS: BP 120/70
--- NOTE | 2017-10-03 13:05 | UC ---
Abdominal Pain Female HPI - HPI Summary HPI Summary: Patient to urgent care with 5 days of abdomen pain, right and left upper quadrant and right lower quad pain--patient reports a history of chronic pancreatitis, patient report normal stooling with blood streaking---patient left urgent care yesterday with the plan to [place] [facility] [place] but was unable to get a ride.Patient has returned today with continued pain and if willing to take an ambulance to [facility] - History of Current Complaint Chief Complaint: UCAbdominalPain Stated Complaint: ABDOMINAL PAIN Time Seen by Provider: 10/03/17 11:50 Hx Obtained From: Patient, Medical Records Hx Last Menstrual Period: 08/28/17 ?: No Onset/Duration: Gradual Onset, Worse Since - past 5 days Timing: Constant Pain Intensity: 10 Pain Scale Used: 0-10 Numeric Radiates: No Character: Cramping, Sharp Aggravating Factor(s): Nothing Alleviating Factor(s): Nothing Associated Signs and Symptoms: Positive: Blood in Stool Allergies/Adverse Reactions: Allergies Allergy/AdvReac Type Severity Reaction Status Date / Time adhesive tape Allergy Blisters Verified 10/03/17 11:08 Penicillins Allergy Swelling Verified 10/03/17 11:08 Environment/Seasonal Hayfever Allergy Sneeze, Uncoded 10/03/17 11:08 Congestion PMH/Surg Hx/FS Hx/Imm Hx Previously Healthy: No - chronic back pain, 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 1995 BILATERAL TUBAL LIGATION, [facility]. 2010 LYMPH NODE RIGHT SIDE BACK OF SHOULDER REMOVED, [place]. 05/29/2014 LAPAROSCOPIC CHOLECYSTECTOMY, [facility]. 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) Lives: With Family Alcohol Use: Occasionally Substance Use Type: None Smoking Status (MU): Former Smoker Type: Cigarettes Amount Used/How Often: 1/2 PPD Length of Time of Smoking/Using Tobacco: 30 YEARS Have You Smoked in the Last Year: Yes When Did the Patient Quit Smoking/Using Tobacco: 09/2016 Household Exposure Type: Cigarettes - Immunization History Most Recent Influenza Vaccination: 2015 Review of Systems Constitutional: Negative Skin: Negative Eyes: Negative ENT: Negative Respiratory: Negative Cardiovascular: Negative Gastrointestinal: Abdominal Pain Genitourinary: Negative Motor: Negative Neurovascular: Negative Musculoskeletal: Negative Neurological: Negative Psychological: Negative Is Patient Immunocompromised?: No All Other Systems Reviewed And Are Negative: Yes Physical Exam Triage Information Reviewed: Yes Appearance: Well-Nourished, Ill-Appearing - appears older than stated age, Pain Distress - holding abdomen rocking in pain Vital Signs: Initial Vital Signs Temp 98.2 F 10/03/17 11:05 Pulse 73 10/03/17 11:05 Resp 18 10/03/17 11:05 BP 120/70 10/03/17 11:05 Pulse Ox 99 10/03/17 11:05 Vital Signs Reviewed: Yes Eye Exam: Normal Eyes: Positive: Conjunctiva Clear ENT Exam: Normal ENT: Positive: Normal ENT inspection, Hearing grossly normal, TMs normal. Negative: Nasal congestion, Trismus, Muffled voice, Hoarse voice Dental Exam: Normal Neck exam: Normal Neck: Positive: Supple, Nontender, No Lymphadenopathy Respiratory Exam: Normal Respiratory: Positive: Chest non-tender, No respiratory distress, No accessory muscle use Cardiovascular Exam: Normal Cardiovascular: Positive: RRR, Pulses Normal, Brisk Capillary Refill Abdominal Exam: Normal Abdomen Description: Positive: No Organomegaly, Soft, Other: - diffuse. Negative: CVA Tenderness (R), CVA Tenderness (L), Distended, Guarding, Hepatomegaly, McBurney's Point Tenderness Bowel Sounds: Positive: Present Musculoskeletal Exam: Normal Musculoskeletal: Positive: Strength Intact, ROM Intact, No Edema Neurological Exam: Normal Neurological: Positive: Alert, Muscle Tone Normal Psychological Exam: Normal Skin Exam: Normal Abd Pain Female Course/Dx - Course Course Of Treatment: transfer by ems [place] [facility] [place] - Differential Dx/Diagnosis Provider Diagnoses: Acute on chronic abdomen pain - Physician Notification/Consults Time Discussed With Above Provider: 12:30 - Rodrigo Arana Instructed by Provider To: Transfer Discharge - Sign-Out/Discharge Documenting (check all that apply): Discharge/Admit/Transfer - Discharge Plan Condition: Stable Disposition: TRANS [facility] Referrals: Willa Lira MD [Primary Care Provider] - - Billing Disposition and Condition Condition: STABLE Disposition: Trans Higher l of Care Fac
== END 2017-10-03 12:44 | disposition short-term general hospital (02) ==
LOC: UCCORT 10:26
DX: R10.9 Unspecified abdominal pain (principal); G89.29 Other chronic pain; F43.10 Post-traumatic stress disorder, unspecified; Z88.0 Allergy status to penicillin; Z87.891 Personal history of nicotine dependence
CPT/HCPCS: 99213; G0463

== ENCOUNTER 2017-10-03 13:38 | Emergency (ER) | payer OTHER ==
[2017-10-03] MEDS ORDERED: NS 0.9% 1000 ML* 1,000 ML IV ONE (15:09)
[2017-10-03] MEDS ORDERED: Morphine VIAL* 4 MG/ML VIAL (1 ml vial) IV ONE (15:09)
[2017-10-03 16:52] LABS: ABS Basophils 0.1 10^3/ul (0-0.2); ABS Eosinophils 0.4 10^3/ul (0-0.6); ABS Lymphocytes 1.6 10^3/ul (1.0-4.8); ABS Monocytes 0.6 10^3/ul (0-0.8); ABS Neutrophils 3.3 10^3/ul (1.5-7.7); ABS Nucleated RBC 0 10^3/ul; Eosinophil % 6.5 % (0-6); Hematocrit 39 % (35-47); Hemoglobin 13.2 g/dl (12.0-16.0); Lymphocyte % 26.7 % (25-47); Mean Corpuscular HGB Conc 34 g/dl (31-36); Mean Corpuscular Hemoglobin 32 pg (27-31); Mean Corpuscular Volume 95 fL (80-97); Mean Platelet Volume 7.9 um3 (7.4-10.4); Nucleated Red Blood Cells % 0.1; Platelet Count 291 10^3/ul (150-450); Red Blood Count 4.13 10^6/ul (4.0-5.4); Red Cell Distribution Width 14 % (10.5-15); White Blood Count 5.9 10^3/ul (3.5-10.8)
[2017-10-03] MEDS ORDERED: Iohexol 300* (CONTRAST) 10 ML SDV IV ONE (17:15)
[2017-10-03 17:29] LABS: Urine Appearance Clear; Urine Blood Negative (Negative); Urine Color Straw; Urine Ketones Negative (Negative); Urine Protein Negative (Negative); Urine Specific Gravity 1.009 (1.010-1.030); Urine Urobilinogen Negative (Negative)
--- NOTE | 2017-10-03 18:04 | RAD ---
CLINICAL HISTORY: 5 days of right lower quadrant pain. Relevant surgical history includes cholecystectomy and surgical removal of the left ovary and fallopian tube September 2015. COMPARISON: Most recent comparison CT examination is dated August 18, 2017 TECHNIQUE: Contrast enhanced CT examination of the abdomen and pelvis from the lung bases through the initial tuberosities. The patient received 100 mL Omnipaque 300 intravenously prior to imaging.The patient received oral contrast as well prior to imaging. FINDINGS: VISUALIZED LUNG BASES: The visualized lung bases are grossly clear. There is no pleural effusion. ABDOMEN AND PELVIS: The liver, spleen, pancreas and adrenal glands are grossly normal in appearance. The gallbladder is surgically absent. The kidneys are normal in appearance without focal mass, calcification or signs of hydronephrosis. There are contrast has progressed as far as the hepatic flexure. The small and large bowel are not distended. The patient's normal appendix is identified in the right lower quadrant with contrast the lumen measuring 6 mm in diameter (coronal image 36. There is no gross retroperitoneal or mesenteric lymphadenopathy. Multiple subcentimeter ovarian follicles are noted in the right adnexa. The endometrial stripe is mildly thickening measuring 14 mm in sagittal projection. The abdominal aorta and iliac arteries are normal in course and diameter. Degenerative changes include multilevel loss of intervertebral disc height involving the lower thoracic and lumbar spine most severely affecting T11/T12.There are no sinister bone lesions. IMPRESSION: 1. No CT apparent acute inflammatory change of the gastrointestinal tract. 2. Top normal endometrial stripe thickness and likely right ovarian follicles are incidentally noted. The patient is exhibiting any gynecologic symptoms superior characterization the emergency ascending can be acquired with transvaginal pelvic ultrasound. 3. Additional chronic, degenerative and iatrogenic findings described in body the report.
--- NOTE | 2017-10-03 19:46 | ED ---
Noreen Rodriguez Julia, scribed for Jun Gamboa MD on 10/03/17 at 1508 . Abdominal Pain/Female - HPI Summary HPI Summary: This patient is a 47 year old F presenting to [facility] with a chief complaint of worsening RLQ abdominal pain for the past five days. Patient reports nausea and chills. Patient denies nausea and vomiting. Pain is 10/10 in severity. Denies chance of . - History of Current Complaint Stated Complaint: ABD PAIN Hx Obtained From: Patient Hx Last Menstrual Period: 08/28/17 Onset/Duration: Lasting Days Timing: Constant Severity Currently: Severe Pain Intensity: 10 Pain Scale Used: 0-10 Numeric Location: Discrete At: RLQ Associated Signs and Symptoms: Positive: Fever. Negative: Nausea, Vomiting Allergies/Adverse Reactions: Allergies Allergy/AdvReac Type Severity Reaction Status Date / Time adhesive tape Allergy Blisters Verified 10/03/17 11:08 Penicillins Allergy Swelling Verified 10/03/17 11:08 Environment/Seasonal Hayfever Allergy Sneeze, Uncoded 10/03/17 11:08 Congestion PMH/Surg Hx/FS Hx/Imm Hx Endocrine/Hematology History: Reports: Hx Anemia - NO MEDS Denies: Hx Diabetes Cardiovascular History: Denies: Hx Congestive Heart Failure, Hx Hypertension, Hx Pacemaker/ICD Respiratory History: Reports: Hx Chronic Obstructive Pulmonary Disease (COPD), Other Respiratory Problems/Disorders GI History: Reports: Hx Gall Bladder Disease - domitila 05/2014, Hx Gastroesophageal Reflux Disease - NO MEDS, Other GI Disorders - pancreatitis, NO PROBLEMS NOW History: Reports: Other Problems/Disorders - HX OF UTI, NONE RECENTLY Denies: Hx Renal Disease Musculoskeletal History: Reports: Hx Back Problems Sensory History: Reports: Hx Contacts or Glasses Opthamlomology History: Reports: Hx Contacts or Glasses Neurological History: Reports: Hx Headaches, Hx Migraine - R/T CHRONIC NECK PROBLEM Psychiatric History: Reports: Hx Depression - BIPOLAR, NO MEDS PRESENTLY Denies: Hx Panic Disorder - Surgical History Surgery Procedure, Year, and Place: TONSILLECTOMY. 1995 BILATERAL TUBAL LIGATION, [facility]. 2010 LYMPH NODE RIGHT SIDE BACK OF SHOULDER REMOVED, [place]. 05/29/2014 LAPAROSCOPIC CHOLECYSTECTOMY, [facility]. left ovary & fallopian tube removal 09/2015 Hx Anesthesia Reactions: Yes - GALLBLADDER - DIFFICULTY WAKING - VS DROPPED X 2 Infectious Disease History: Denies: Traveled Outside the [place] in Last 30 Days - Family History Known Family History: Positive: Cardiac Disease, Hypertension - Social History Alcohol Use: Occasionally Substance Use Type: Reports: None Smoking Status (MU): Former Smoker Type: Cigarettes Amount Used/How Often: 1/2 PPD Length of Time of Smoking/Using Tobacco: 30 YEARS Have You Smoked in the Last Year: Yes Review of Systems Positive: Fever, Chills Positive: Abdominal Pain. Negative: Vomiting, Nausea All Other Systems Reviewed And Are Negative: Yes Physical Exam - Summary Physical Exam Summary: VITAL SIGNS: Reviewed. GENERAL: Patient is a well-developed and nourished female who is lying comfortable in the stretcher. Patient is not in any acute respiratory distress. HEAD AND FACE: No signs of trauma. No ecchymosis, hematomas or skull depressions. No sinus tenderness. EYES: PERRLA, EOMI x 2, No injected conjunctiva, no nystagmus. EARS: Hearing grossly intact. Ear canals and tympanic membranes are within normal limits. MOUTH: Oropharynx within normal limits. NECK: Supple, trachea is midline, no adenopathy, no JVD, no carotid bruit, no c- spine tenderness, neck with full ROM. CHEST: Symmetric, no tenderness at palpation LUNGS: Clear to auscultation bilaterally. No wheezing or crackles. CVS: Regular rate and rhythm, S1 and S2 present, no murmurs or gallops appreciated. ABDOMEN: Soft,RLQ tenderness. No signs of distention. Rebound, no guarding no masses palpated. Bowel sounds are normal. EXTREMITIES: FROM in all major joints, no edema, no cyanosis or clubbing. NEURO: Alert and oriented x 3. No acute neurological deficits. Speech is normal and follows commands. SKIN: Dry and warm Triage Information Reviewed: Yes Vital Signs On Initial Exam: Initial Vitals Temp Pulse Resp BP Pulse Ox 98 F 56 20 144/94 100 10/03/17 15:21 10/03/17 15:21 10/03/17 15:21 10/03/17 15:21 10/03/17 15:21 Vital Signs Reviewed: Yes Diagnostics - Vital Signs Vital Signs Temp Pulse Resp BP Pulse Ox 10/03/17 19:00 68 100 10/03/17 18:54 79 136/99 99 10/03/17 18:25 63 115/79 96 10/03/17 18:00 59 97 10/03/17 17:54 68 123/86 97 10/03/17 17:33 82 99 10/03/17 16:48 20 10/03/17 16:00 56 100 10/03/17 15:24 70 132/80 98 10/03/17 15:23 56 100 10/03/17 15:21 98 F 56 20 144/94 100 - Laboratory Lab Results: Lab Results 10/03/17 10/03/17 10/03/17 Range/Units 16:41 16:41 16:41 WBC 5.9 (3.5-10.8) 10^3/ul RBC 4.13 (4.0-5.4) 10^6/ul Hgb 13.2 (12.0-16.0) g/dl Hct 39 (35-47) % MCV 95 (80-97) fL MCH 32 H (27-31) pg MCHC 34 (31-36) g/dl RDW 14 (10.5-15) % Plt Count 291 (150-450) 10^3/ul MPV 7.9 (7.4-10.4) um3 Neut % (Auto) 56.2 (38-83) % Lymph % (Auto) 26.7 (25-47) % [place] % (Auto) 9.7 H (0-7) % Eos % (Auto) 6.5 H (0-6) % Baso % (Auto) 0.9 (0-2) % Absolute Neuts (auto) 3.3 (1.5-7.7) 10^3/ul Absolute Lymphs (auto) 1.6 (1.0-4.8) 10^3/ul Absolute Monos (auto) 0.6 (0-0.8) 10^3/ul Absolute Eos (auto) 0.4 (0-0.6) 10^3/ul Absolute Basos (auto) 0.1 (0-0.2) 10^3/ul Absolute Nucleated RBC 0 10^3/ul Nucleated RBC % 0.1 Sodium 134 L (139-145) mmol/L Potassium 3.6 (3.5-5.0) mmol/L Chloride 102 (101-111) mmol/L Carbon Dioxide 24 (22-32) mmol/L Anion Gap 8 (2-11) mmol/L BUN 10 (6-24) mg/dL Creatinine 0.97 H (0.51-0.95) mg/dL Est GFR ( Amer) 78.5 (>60) Est GFR (Non-Af Amer) 61.0 (>60) BUN/Creatinine Ratio 10.3 (8-20) Glucose 91 (70-100) mg/dL Lactic Acid 0.6 (0.5-2.0) mmol/L Calcium 9.0 (8.6-10.3) mg/dL Magnesium 1.8 L (1.9-2.7) mg/dL Total Bilirubin 0.40 (0.2-1.0) mg/dL AST 16 (13-39) U/L ALT 14 (7-52) U/L Alkaline Phosphatase 57 (34-104) U/L C-Reactive Protein 2.07 (< 5.00) mg/L Total Protein 6.7 (6.4-8.9) g/dL Albumin 3.8 (3.2-5.2) g/dL Globulin 2.9 (2-4) g/dL Albumin/Globulin Ratio 1.3 (1-3) Lipase 19 (11.0-82.0) U/L Beta HCG, Quant < 0.60 mIU/mL Urine Color Urine Appearance Urine pH (5-9) Ur Specific [place] (1.010-1.030) Urine Protein (Negative) Urine Ketones (Negative) Urine Blood (Negative) Urine Nitrate (Negative) Urine Bilirubin (Negative) Urine Urobilinogen (Negative) Ur Leukocyte Esterase (Negative) Urine WBC (Auto) (Absent) Urine RBC (Auto) (Absent) Ur Squamous Epith Cells (Absent) Urine Bacteria (Absent) Urine Glucose (Negative) 10/03/17 Range/Units 17:09 WBC (3.5-10.8) 10^3/ul RBC (4.0-5.4) 10^6/ul Hgb (12.0-16.0) g/dl Hct (35-47) % MCV (80-97) fL MCH (27-31) pg MCHC (31-36) g/dl RDW (10.5-15) % Plt Count (150-450) 10^3/ul MPV (7.4-10.4) um3 Neut % (Auto) (38-83) % Lymph % (Auto) (25-47) % [place] % (Auto) (0-7) % Eos % (Auto) (0-6) % Baso % (Auto) (0-2) % Absolute Neuts (auto) (1.5-7.7) 10^3/ul Absolute Lymphs (auto) (1.0-4.8) 10^3/ul Absolute Monos (auto) (0-0.8) 10^3/ul Absolute Eos (auto) (0-0.6) 10^3/ul Absolute Basos (auto) (0-0.2) 10^3/ul Absolute Nucleated RBC 10^3/ul Nucleated RBC % Sodium (139-145) mmol/L Potassium (3.5-5.0) mmol/L Chloride (101-111) mmol/L Carbon Dioxide (22-32) mmol/L Anion Gap (2-11) mmol/L BUN (6-24) mg/dL Creatinine (0.51-0.95) mg/dL Est GFR ( Amer) (>60) Est GFR (Non-Af Amer) (>60) BUN/Creatinine Ratio (8-20) Glucose (70-100) mg/dL Lactic Acid (0.5-2.0) mmol/L Calcium (8.6-10.3) mg/dL Magnesium (1.9-2.7) mg/dL Total Bilirubin (0.2-1.0) mg/dL AST (13-39) U/L ALT (7-52) U/L Alkaline Phosphatase (34-104) U/L C-Reactive Protein (< 5.00) mg/L Total Protein (6.4-8.9) g/dL Albumin (3.2-5.2) g/dL Globulin (2-4) g/dL Albumin/Globulin Ratio (1-3) Lipase (11.0-82.0) U/L Beta HCG, Quant mIU/mL Urine Color Straw Urine Appearance Clear Urine pH 6.0 (5-9) Ur Specific [place] 1.009 L (1.010-1.030) Urine Protein Negative (Negative) Urine Ketones Negative (Negative) Urine Blood Negative (Negative) Urine Nitrate Negative (Negative) Urine Bilirubin Negative (Negative) Urine Urobilinogen Negative (Negative) Ur Leukocyte Esterase 1+ A (Negative) Urine WBC (Auto) Trace(0-5/hpf) (Absent) Urine RBC (Auto) Trace(0-2/hpf) (Absent) Ur Squamous Epith Cells Present A (Absent) Urine Bacteria Absent (Absent) Urine Glucose Negative (Negative) Result Diagrams: 10/03/17 16:41 10/03/17 16:41 Lab Statement: Any lab studies that have been ordered have been reviewed, and results considered in the medical decision making process. - CT A/P CT Interpretation Completed By: Radiologist - 1. No CT apparent acute inflammatory change of the gastrointestinal tract. 2. Top normal endometrial stripe thickness and likely right ovarian follicles are incidentally noted. The patient is exhibiting any gynecologic symptoms superior characterization the emergency ascending can be acquired with transvaginal pelvic ultrasound. 3. Additional chronic, degenerative and iatrogenic findings described in body the report. ED Physician has reviewed this report. - EKG 1517 Cardiac Rate: Bradycardia EKG Rhythm: Sinus Bradycardia - 57 BPM EKG Interpretation: no ST elevations Re-Evaluation - Re-Evaluation First Re-Evaluation Time: 18:55 Change: Improved Comment: pain is resolved Abdominal Pain Fem Course/Dx - Course Course Of Treatment: Initially the patient was placed on a collections rep, IV access was obtained, and the patient was started and an IV fluids. The patient was given morphine for the pain. Blood test results without any significant abnormality except sodium 134, creatinine 0.97, magnesium 1.8. Urinalysis negative for UTI. EKG: Normal sinus rhythm without any ST elevations. Abdominal and pelvic CT impression: 1. No CT apparent acute inflammatory change of the gastrointestinal tract. 2. Top normal endometrial stripe thickness and likely right ovarian follicles are. incidentally noted. The patient is exhibiting any gynecologic symptoms superior. characterization the emergency ascending can be acquired with transvaginal pelvic. ultrasound. 3. Additional chronic, degenerative and iatrogenic findings described in body the report. After the patient was given IV fluids and the morphine or her pain resolved. I had multiple exams of the abdomen and she doesnt have any abdominal pain or tenderness. Darío for the patient had a pelvic ultrasound or a pelvic exam and she declined. She reports that she has an appointment to see her [employer] MANAGER on [place] on 10/11/17. I discussed all the findings and test results with the patient. Patient was instructed to return to the emergency room immediately if any of the symptoms return or worsens. Plan of care was discussed with the patient and understands and agrees. All questions were answered at patient satisfaction. There were no further complaints or concerns. Lung exam before discharge: CTA B/L. Good air exchange. No wheezing or crackles heard. CVS: S1 and S2 present. No murmurs appreciated. Patient is alert and oriented x 3. Patient is hemodynamically stable. Patient will be discharged home with follow up PCP in the next 2-3 days - Diagnoses Provider Diagnoses: Lower abdominal pain Discharge - Sign-Out/Discharge Documenting (check all that apply): Discharge/Admit/Transfer - Discharge Plan Condition: Stable Disposition: HOME Patient Education Materials: Abdominal Pain (ED) Referrals: Willa Lira MD [Primary Care Provider] - 2 Days Additional Instructions: RETURN TO THE EMERGENCY DEPARTMENT FOR ANY WORSENING OR NEW SYMPTOMS. - Billing Disposition and Condition Condition: STABLE Disposition: Home The documentation as recorded by the Noreen hernandez Julia accurately reflects the service I personally performed and the decisions made by Cooper sánchez Walter, MD.
[2017-10-03 19:52] VITALS: BP 128/80
== END 2017-10-03 19:54 | disposition home or self-care (01) ==
LOC: ED 13:38
DX: R10.31 Right lower quadrant pain (principal); R50.9 Fever, unspecified; Z87.891 Personal history of nicotine dependence
CPT/HCPCS: 36415; 74177; 80053; 81003; 81015; 83605; 83690; 83735; 84702; 85025; 86140; 87086; 93005; 96374; 99283; J2270; Q9967

== ENCOUNTER 2018-04-15 14:35 | Emergency (ER) | payer OTHER ==
[2018-04-15 15:05] VITALS: BP 126/81
--- NOTE | 2018-04-15 15:25 | UC ---
UC General HPI - HPI Summary HPI Summary: PT C/O A STING, POKING AND BURN INSIDE HER VAGINA X 2 WEEKS. HAD A TOTAL HYSTERECTOMY 09/2017. SHE HAD INCONTINENCE AFTER SO DR BAKER DID A BLADDER SLING ON 02/10. PT WENT TO ER LAST PM AND STATES THEY FOUND NOTHING AFTER A SPECULUM EXAM. SHE IS HERE FOR ONGOING SYMPTOMS. NO D/C, FEVER. ABDOMINAL PAIN OR DYSURIA. - History of Current Complaint Chief Complaint: UCGU Stated Complaint: PERSONAL Time Seen by Provider: 04/15/18 15:17 Hx Obtained From: Patient Hx Last Menstrual Period: 08/28/17 Pain Intensity: 7 - Allergy/Home Medications Allergies/Adverse Reactions: Allergies Allergy/AdvReac Type Severity Reaction Status Date / Time adhesive tape Allergy Blisters Verified 04/15/18 15:02 Penicillins Allergy Swelling Verified 04/15/18 15:02 Environment/Seasonal Hayfever Allergy Sneeze, Uncoded 04/15/18 15:02 Congestion Home Medications: Home Medications Linaclotide [Linzess] 72 mcg PO DAILY 04/15/18 [History Confirmed 04/15/18] PMH/Surg Hx/FS Hx/Imm Hx - Additional Past Medical History Additional PMH: RSD RLE, PTSD, IBS, ANEMIA - Surgical History Surgical History: Yes Surgery Procedure, Year, and Place: TONSILLECTOMY. 1995 BILATERAL TUBAL LIGATION, [facility]. 2009 LYMPH NODE RIGHT SIDE BACK OF SHOULDER REMOVED, [place]. 05/29/2014 LAPAROSCOPIC CHOLECYSTECTOMY, [facility]. left ovary & fallopian tube removal 09/2015. total hysterectomy. appy - Family History Known Family History: Positive: Cardiac Disease, Hypertension - Social History Alcohol Use: None Substance Use Type: None Smoking Status (MU): Former Smoker Type: Cigarettes Amount Used/How Often: 1/2 PPD Length of Time of Smoking/Using Tobacco: 30 YEARS Have You Smoked in the Last Year: Yes When Did the Patient Quit Smoking/Using Tobacco: 09/2016 Household Exposure Type: Cigarettes - Immunization History Most Recent Influenza Vaccination: 2016 Vaccination Up to Date: Yes Review of Systems All Other Systems Reviewed And Are Negative: Yes Constitutional: Positive: Negative Skin: Positive: Negative Eyes: Positive: Negative ENT: Positive: Negative Respiratory: Positive: Negative Cardiovascular: Positive: Negative Gastrointestinal: Positive: Negative Genitourinary: Positive: Negative Motor: Positive: Negative Neurovascular: Positive: Negative Musculoskeletal: Positive: Other: - CHRONIC LEG PAIN Neurological: Positive: Negative Psychological: Positive: Negative Is Patient Immunocompromised?: No Physical Exam Triage Information Reviewed: Yes Appearance: Well-Appearing Vital Signs: Initial Vital Signs Temp 98.1 F 04/15/18 14:59 Pulse 80 04/15/18 14:59 Resp 18 04/15/18 14:59 BP 126/81 04/15/18 14:59 Pulse Ox 99 04/15/18 14:59 Vital Signs Reviewed: Yes Eyes: Positive: Conjunctiva Clear ENT: Positive: Normal ENT inspection Neck: Positive: Supple, Nontender, No Lymphadenopathy Respiratory: Positive: Lungs clear, Normal breath sounds Cardiovascular: Positive: RRR, No Murmur Abdomen Description: Positive: Nontender, No Organomegaly, Soft. Negative: Distended, Guarding Bowel Sounds: Positive: Present Pelvic Exam: Positive: External Exam Normal, Speculum Exam Normal, Other - Bimanual exam revealed a mesh type texture with sharp edge to the upper vaginal wall. Musculoskeletal: Positive: ROM Intact Neurological: Positive: Alert Psychological: Positive: Age Appropriate Behavior Skin Exam: Normal Course/Dx - Course Course Of Treatment: call placed to Dr Baker, pt surgeion/director translational. he advised pt put nothing in her vagina, avoid sex and call this coming wednesday to be seen the same day.he advised he can probably just trim that in the office. - Differential Dx - Multi-Symptom Differential Diagnoses: Other - no fever. no acute abdomen. no concern for overt infection. pelvic cultures done and u/a was unremarkable. - Diagnoses Provider Diagnosis: Exposure of vaginal mesh through vaginal wall Discharge - Sign-Out/Discharge Documenting (check all that apply): Patient Departure All imaging exams completed and their final reports reviewed: No Studies - Discharge Plan Condition: Stable Disposition: HOME Patient Education Materials: Pelvic Pain (ED), Bladder Sling (DC) Referrals: Yoshi Baker MD [Medical Doctor] - Additional Instructions: CALL OFFICE OF DR BAKER ON 04/20/18. HE ADVISED HE WILL SEE YOU THE SAME DAY. DO NOT PUT ANYTHING IN YOUR VAGINA. NO SEX UNTIL CLEARED BY DR BAKER. - Billing Disposition and Condition Condition: STABLE Disposition: Home - Attestation Statements Provider Attestation: Per institutional requirements, I have reviewed the chart, however, I was not consulted specifically or made aware of this patient by the midlevel provider. I did not personally evaluate, interact with , or disposition this patient.
--- NOTE | 2018-04-18 07:16 | UC ---
- Progress Note Progress Note: Neg gardnerella Neg Danay no change j 04/18/18 Course/Dx - Diagnoses Provider Diagnoses: Exposure of vaginal mesh through vaginal wall Discharge - Sign-Out/Discharge Documenting (check all that apply): Post-Discharge Follow Up All imaging exams completed and their final reports reviewed: No Studies - Discharge Plan Condition: Stable Disposition: HOME Patient Education Materials: Pelvic Pain (ED), Bladder Sling (DC) Referrals: Yoshi Baker MD [Medical Doctor] - Additional Instructions: CALL OFFICE OF DR BAKER ON 04/20/18. HE ADVISED HE WILL SEE YOU THE SAME DAY. DO NOT PUT ANYTHING IN YOUR VAGINA. NO SEX UNTIL CLEARED BY DR BAKER. - Billing Disposition and Condition Condition: STABLE Disposition: Home
== END 2018-04-15 16:47 | disposition home or self-care (01) ==
LOC: UCCORT 14:35
DX: T85.9XXA Unspecified complication of internal prosthetic device, implant and graft, initial encounter (principal); Y76.3 Surgical instruments, materials and obstetric and gynecological devices (including sutures) associated with adverse incidents; Y92.239 Unspecified place in hospital as the place of occurrence of the external cause; Z88.0 Allergy status to penicillin; Z87.891 Personal history of nicotine dependence
CPT/HCPCS: 81003; 87086; 87480; 87491; 87510; 87591; 87661; 99211; G0463

== ENCOUNTER 2018-06-29 12:23 | Emergency (ER) | payer OTHER ==
--- OUTSIDE RECORDS SUMMARY | 2018-06-29 12:32 | XMS REPORT | Continuity of Care Document ---
:1970 External Reference #:[id number] Author Name Cha Garcia PA Address [address] [place] [address] Care Team Providers Name Role Phone Beverly Marrero, HUMAN RESOURCES SUPERVISOR Care Team Information Sas Analyst Unavailable Beverly Marrero, HUMAN RESOURCES SUPERVISOR Primary Care Physician Unavailable Payers Type Date Identification Numbers Payment Provider Subscriber Policy Number: [id number] [employer] Ayse Arteaga PayID: [id number] [address] [place] [address] Advance Directives Description No Information Available Problems Date Description Provider Status Onset: 02/15/2013 Right upper quadrant pain Jose Alberto Fuller MD Active Onset: 03/01/2013 Chronic cholecystitis Jose Alberto Fuller MD Active Onset: 11/02/2017 Deep venous thrombosis of upper Taran Kang DO Active extremity Onset: 11/02/2017 Tobacco user Taran Kang DO Active Onset: 11/15/2017 Iron deficiency Taran Kang DO Active Onset: 11/15/2017 Pain, unspecified Taran Kang DO Active Onset: 11/15/2017 Pain in left arm Taran Kang DO Active Onset: 02/01/2018 Migraine with aura Taran Kang DO Active Onset: 02/08/2018 Pain in calf Taran Kang DO Active Onset: 02/16/2018 Pain in left lower limb Taran Kang DO Active Onset: 05/30/2018 Sprain of ankle Cha Garcia PA Active Family History Date Family Member(s) Problem(s) Comments General Not Known - Adopted Father due to Natural Causes () Mother due to Natural Causes () Children 5 Social History Type Date Description Comments Sex Unknown Marital Status Lives With Boyfriend Diet Patient follows no dietary restrictions 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 Unemployed 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 Tobacco Use Start: Unknown currently smokes 1/2 Pack Daily Cigarette Use Pack Years - 25 Tobacco Use Start: Unknown End: Quit 2017 Unknown ETOH Use Rarely consumes alcohol Tobacco Use Start: Unknown End: Patient is a former per pt quit 1year Unknown smoker and 1month ago Recreational Drug Use Denies Drug Use Smoking Status Reviewed: 05/30/18 Patient is a former per pt quit 1year smoker and 1month ago Allergies, Adverse Reactions, Alerts Date Description Reaction Status Severity Comments 02/06/2013 Penicillin Active 11/02/2017 Adhesives Active Medications Medication Date Status Form Strength Qnty SIG Indications Ordering Provider Meloxicam 05/30/ Active Tablets 15mg 30tabs 1 by mouth S93.401A Michael 2019 every day MD Georgie Gabapentin / Active Tablets 800mg 1 by mouth Unknown 0000 three times a day Prazosin HCL / Active Capsules 2mg take 1 Unknown 0000 capsule every night mdd 1 Topiramate / Active Tablets 25mg 1 tablet Unknown 0000 every night Ferrous 0000/ Active Tablets 324(38Fe) take one Unknown Gluconate 0000 mg tablet by mouth once daily Senexon / Active Tablets 8.6mg 2 tabs at Unknown 0000 bedtime Fluoxetine HCL 00/ Active Capsules 20mg 1 by mouth Unknown (PMDD) 0000 every night Ondansetron 00/00/ Active Tablets 4mg 1 tab Unknown HCL 0000 every 6hr as needed for nausea Linzess / Active Capsules 145mcg 90caps 1 by mouth Syam, 0000 every day MD Matthew Docusate / Active Capsules 240mg 1 by mouth Unknown Calcium 0000 every day as needed Naproxen / Active Tablets 500mg Unknown 0000 Warfarin 11/25/ Hx Tablets 1mg 60tabs Take 1-2 Boufal, Sodium 2017 - Tablets By Pratima, 05/30/ Mouth DO 2018 Every Day as Directed Coumadin 11/18/ Hx Tablets 5mg 30tabs 1 tablet I82.621 Jorge Luis 2017 - by mouth Taran, 05/30/ daily at DO 2018 night. (pt stated 3 mg) [place] 11/15/ Hx Tablets 5-325mg 10tabs 1 tab by R52 Jorge Luis, 2017 - mouth Taran, every 6 2017 hours as needed pain [place] 11/12/ Hx Tablets 5-325mg 14tabs 1 tab by Jorge Luis, 2017 - mouth Taran, every 6 2017 hours as needed pain Xarelto 11/05/ Hx Tablets 20mg 30tabs 1 by mouth Jorge Luis, 2017 - every day Taran, 2017 No Active Unknown Medications 2014 - 2014 Adderall / Hx Tablets 10mg po qd Unknown 0000 Fluoxetine HCL / Hx Capsules 10mg 1 po qd Unknown 0000 Tessalon / Hx Capsules 200mg 30caps po tid prn Unknown 0000 Omeprazole / Hx Capsules 20mg 30caps 1 po qd Unknown 0000 - DR 2014 Hydrocodone-Ac / Hx Tablets 5-325mg 30tabs 1 by mouth Unknown etaminophen 0000 every 6 hours as needed pain Ibuprofen / Hx Tablets 600mg 30tabs 1 by mouth Unknown 0000 - every 6 04/ hours as 2019 needed pain use as first line pain control Xarelto / Hx Tablets 15mg 30tabs 1 by mouth Jorge Luis, - every day Taran, 2017 Warfarin / Hx Tablets 5mg Take One Unknown Sodium 0000 - Tablet By 2017 Every Day Immunizations Description No Information Available Vital Signs Date Vital Result Comment 05/30/2018 10:32am BP Systolic Sitting Right Arm 111 mmHg BP Diastolic Sitting Right Arm 77 mmHg Body Temperature 97.7 F Heart Rate 78 /min Weight 172.25 lb O2 % BldC Oximetry 99 % Pain Level 7 Rt Ankle/Foot 02/16/2018 10:46am BP Systolic 118 mmHg BP Diastolic 83 mmHg Body Temperature 98.5 F Heart Rate 113 /min Weight 160.00 lb O2 % BldC Oximetry 94 % Pain Level 0 02/08/2018 9:10am BP Systolic 116 mmHg BP Diastolic 73 mmHg Body Temperature 97.1 F Heart Rate 84 /min Respiratory Rate 18 /min Weight 162.38 lb O2 % BldC Oximetry 97 % 01/18/2018 1:47pm BP Systolic 122 mmHg BP Diastolic 74 mmHg Body Temperature 96.5 F Heart Rate 71 /min Weight 163.12 lb O2 Saturation Level with Exercise 96 % Pain Level 0 12/28/2017 2:13pm BP Systolic 122 mmHg BP Diastolic 84 mmHg Body Temperature 97.1 F Heart Rate 74 /min Respiratory Rate 18 /min Weight 155.50 lb O2 % BldC Oximetry 99 % Pain Level 0 12/13/2017 9:33am Body Temperature 96.2 F Heart Rate 82 /min Respiratory Rate 18 /min Height 65.5 inches 5'5.50" Weight 159.12 lb BMI (Body Mass Index) 26.1 kg/m2 BSA (Body Surface Area) 1.81 m2 Phyllis body weight in kilograms 58 kg O2 % BldC Oximetry 99 % Ra Pain Level 5 Right Forearm 11/18/2017 3:01pm BP Systolic 117 mmHg BP Diastolic 73 mmHg Body Temperature 97.6 F Heart Rate 86 /min Weight 163.50 lb O2 % BldC Oximetry 99 % Pain Level 7 right arm pain 11/15/2017 10:04am Body Temperature 98.0 F Heart Rate 76 /min Weight 162.38 lb O2 % BldC Oximetry 98 % Pain Level 10 Chest Pains on right side 11/02/2017 9:08am BP Systolic 106 mmHg BP Diastolic 76 mmHg Body Temperature 96.9 F Heart Rate 75 /min Weight 158.25 lb O2 % BldC Oximetry 100 % Pain Level 7 r wrist 05/07/2014 2:19pm BP Systolic Sitting Right Arm 110 mmHg BP Diastolic Sitting Right Arm 73 mmHg Heart Rate 94 /min Respiratory Rate 18 /min Height 65 inches 5'5" Weight 143.00 lb BMI (Body Mass Index) 23.8 kg/m2 BSA (Body Surface Area) 1.72 m2 02/15/2013 10:42am BP Systolic Sitting Left Arm 96 mmHg BP Diastolic Sitting Left Arm 62 mmHg Heart Rate 86 /min Height 65.5 inches 5'5.50" Weight 134.00 lb BMI (Body Mass Index) 22.0 kg/m2 BSA (Body Surface Area) 1.68 m2 Results Test Date Facility Test Result H/L Range Note Xray 05/30/2018 [facility] - Orthopedic RMP, Foot, RT, Ap, < pending> [address] [facility] lat & oblique ([address] [place] [address] view) [phone] Xray 02/09/2018 [facility] - Radiology Left lower extremity <pending> [address] [place] [address] [phone] Xray 02/09/2018 [facility] - Radiology Right upper extremity <pending> [address] [place] [address] evaluate for DVT [phone] Venous Doppler Upper Extremity Right <pending> Protime 02/08/2018 [facility] Protime 30.1 seconds High 12.0-14.4 1 [address] [place] [address] [phone] Inr 3.0 High 0.9-1.1 2 Anticoagulant Therapy? Unknown Iron-Tibc-%Sat 02/01/2018 [facility] Serum Iron 77 g/dL N 50-170 [address] [place] [address] [phone] Total Iron Binding Capacity 283 g/dL N 250-450 Transferrin %Saturation 27 % N 12-57 Protime 02/01/2018 [facility] Protime 18.3 seconds High 12.0-14.4 [address] [place] [address] [phone] Inr 1.5 High 0.9-1.1 3 Protime 01/25/2018 [facility] Protime 28.0 seconds High 12.0-14.4 [address] [place] [address] [phone] Inr 2.7 High 0.9-1.1 4 Anticoagulant Therapy? Unknown Protime 01/18/2018 [facility] Protime 16.2 seconds High 12.0-14.4 [address] [place] [address] [phone] Inr 1.3 High 0.9-1.1 5 Anticoagulant Therapy? YES Date of Last Dose: [id number] Time of Last Dose: 75218-5 Iron-Tibc-%Sat 01/18/2018 [facility] Serum Iron 68 g/dL N 50-170 [address] [place] [address] [phone] Total Iron Binding Capacity 257 g/dL N 250-450 Transferrin %Saturation 26 % N 12-57 Protime 01/05/2018 [facility] Protime 24.7 seconds High 12.0-14.4 [address] [place] [address] [phone] Inr 2.3 High 0.9-1.1 6 Anticoagulant Therapy? YES Date of Last Dose: U Time of Last Dose: U Protime 12/28/2017 [facility] Protime 14.9 seconds High 12.0-14.4 [address] [place] [address] [phone] Inr 1.2 High 0.9-1.1 7 Xray 12/13/2017 [facility] - Radiology Right upper <pending> [address] [place] [address] ultrasound to [phone] evaluate for DVT Protime 12/13/2017 [facility] Protime 30.0 seconds High 12.0-14. [address] [address] [phone] Inr 2.9 High 0.9-1.1 9 Iron-Tibc-%Sat 12/13/2017 [facility] Serum Iron 59 g/dL N 50-170 [address] [place] [address] [phone] Total Iron Binding Capacity 384 g/dL N 250-450 Transferrin %Saturation 15 % N 12-57 Protime 12/02/2017 [facility] Protime 40.3 seconds High 12.0-14.4 10 [address] [place] [address] [phone] Inr 4.3 High 0.9-1.1 11 Protime 11/25/2017 [facility] Protime 24.8 seconds High 12.0-14.4 [address] [place] [address] [phone] Inr 2.3 High 0.9-1.1 12 Xray 11/16/2017 [facility] - Radiology Venous Doppler <pending> 134 [place] [address] Left [phone] Protime 11/15/2017 [facility] Protime 17.0 seconds High 12.0-14. 13 [address] [address] [phone] Inr 1.4 High 0.9-1.1 14 Anticoagulant Therapy? Unknown CBS W/Automated Diff 11/15/2017 [facility] White Blood 4.6 K/uL N 3.1-10.[address] [place] [address] [phone] Red Blood Count 3.36 M/uL Low 3.90-5.40 Hemoglobin 10.9 gm/dL Low 11.6-15.8 Hematocrit 32.9 % Low 36.0-46.1 Mean Cell Volume 97.9 fl N 80.9-99.0 Mean Corpuscular HGB 32.4 pg N 25.9-32.7 Mean Corpuscular HGB Conc 33.1 g/dL N 30.8-34.3 Platelet Count 299 K/uL N 155-360 Red Cell Distri Width SD 46.1 fl N 3-47 Red Cell Distri Width %CV 13.6 % N 11.7-14.4 Mean Platelet Volume 11.1 fL N 8.9-12.4 Neut% 56.5 % N 40.4-72.8 Lymph % 27.8 % N 20.0-42.0 [place] % 8.9 % N 4.3-13.2 Eo% 5.9 % N 0.0-6.6 Bas% 0.9 % N 0.0-1.1 Neut# 2.60 K/uL N 1.8-7.0 Lymph # 1.28 K/uL N 1.0-4.0 [place] # 0.41 K/uL N 0.3-0.9 Eos # 0.27 K/uL N 0.0-0.5 Baso # 0.04 K/uL N 0.0-0.1 Anticoagulant Therapy? Unknown Iron-Tibc-%Sat 11/15/2017 [facility] Serum Iron 67 g/dL N 50-170 [address] [place] [address] [phone] Total Iron Binding Capacity 280 g/dL N 250-450 Transferrin %Saturation 24 % N 12-57 CBC 10/19/2017 [facility] White Blood Count 5.0 K/uL N 3.1-10.7 15 [address] [place] [address] [phone] Red Blood Count 4.18 M/uL N 3.90-5.40 Hemoglobin 13.4 gm/dL N 11.6-15.8 Hematocrit 40.2 % N 36.0-46.1 Mean Cell Volume 96.2 fl N 80.9-99.0 Mean Corpuscular HGB 32.1 pg N 25.9-32.7 Mean Corpuscular HGB Conc 33.3 g/dL N 30.8-34.3 Platelet Count 255 K/uL N 155-360 Red Cell Distri Width %CV 13.2 % N 11.7-14.4 Mean Platelet Volume 10.5 fL N 8.9-12.4 Ua RFX Micro & Culture 10/19/2017 [facility] Urine Color YELLOW Yellow II [address] [place] [address] [phone] Urine Clarity CLEAR Clear Urine Glucose - Dipstick NEGATIVE mg/dL Negative Urine Bilirubin - Dipstick NEGATIVE Negative Urine Ketone NEGATIVE mg/dL Negative Urine Specific [place] 1.025 N 1.010-1.030 Urine Blood NEGATIVE Negative Urine PH 5.5 Low 6.5-7.5 Urine Protein - Dipstick NEGATIVE mg/dL Negative Urine Urobilinogen - Dipstick 0.2 E.U./dL N 0.2-1.0 Urine Nitrite - Dipstick NEGATIVE Negative Urine Leuk Esterase NEGATIVE Negative Source: URINE, CLEAN CAT <SEE NOTE> 16 Type And Screen 10/19/2017 [facility] Patient Blood Type O POS N [address] [place] [address] [phone] Antibody Screen Negative N Negative Basic Metabolic Panel 08/30/2017 [facility] Glucose 85 mg/dL N 74-106 17 [address] [place] [address] [phone] BUN 13 mg/dL N 7-18 Creatinine 0.9 mg/dL N 0.6-1.3 Glom Filtration Rate, Estimate >60 mL/min >60 If >60 mL/min >60 18 BUN/Creat 14.4 ratio Sodium 142 mmol/L N 136-145 Potassium 4.0 mmol/L N 3.5-5.1 Chloride 113 mmol/L High 98-107 Carbon Dioxide 24 mmol/L N 21-32 Anion Gap 5 mEq/L Low 8-16 Calcium 7.7 mg/dL Low 8.5-10.1 CBS W/Automated Diff 08/30/2017 [facility] White Blood 5.4 K/uL N 3.1-10.[address] [place] [address] [phone] Red Blood Count 3.80 M/uL Low 3.90-5.40 Hemoglobin 12.2 gm/dL N 11.6-15.8 Hematocrit 37.0 % 36.0-46.1 Mean Cell Volume 97.4 fl N 80.9-99.0 Mean Corpuscular HGB 32.1 pg N 25.9-32.7 Mean Corpuscular HGB Conc 33.0 g/dL N 30.8-34.3 Platelet Count 267 K/uL N 155-360 Red Cell Distri Width SD 45.0 fl N 3-47 Red Cell Distri Width %CV 13.0 % N 11.7-14.4 Mean Platelet Volume 10.1 fL N 8.9-12.4 Neut% 61.9 % N 40.4-72.8 Lymph % 25.2 % N 20.0-42.0 [place] % 7.0 % N 4.3-13.2 Eo% 5.2 % N 0.0-6.6 Bas% 0.7 % N 0.0-1.1 Neut# 3.34 K/uL N 1.8-7.0 Lymph # 1.36 K/uL N 1.0-4.0 [place] # 0.38 K/uL N 0.3-0.9 Eos # 0.28 K/uL N 0.0-0.5 Baso # 0.04 K/uL N 0.0-0.1 Laboratory test finding 05/29/2014 [facility] Gallbladder See Note 19 [address] [place] [address] [phone] 1 I82.621 2 THERAPEUTIC INR RANGE: 2.0 - 3.0 DVT, Pulmonary embolus, prophylaxis against venous thrombosis or systemic embolization in high risk patients. 2.5 - 3.5 Mechanical heart valves 3 THERAPEUTIC INR RANGE: 2.0 - 3.0 DVT, Pulmonary embolus, prophylaxis against venous thrombosis or systemic embolization in high risk patients. 2.5 - 3.5 Mechanical heart valves 4 THERAPEUTIC INR RANGE: 2.0 - 3.0 DVT, Pulmonary embolus, prophylaxis against venous thrombosis or systemic embolization in high risk patients. 2.5 - 3.5 Mechanical heart valves 5 THERAPEUTIC INR RANGE: 2.0 - 3.0 DVT, Pulmonary embolus, prophylaxis against venous thrombosis or systemic embolization in high risk patients. 2.5 - 3.5 Mechanical heart valves 6 THERAPEUTIC INR RANGE: 2.0 - 3.0 DVT, Pulmonary embolus, prophylaxis against venous thrombosis or systemic embolization in high risk patients. 2.5 - 3.5 Mechanical heart valves 7 THERAPEUTIC INR RANGE: 2.0 - 3.0 DVT, Pulmonary embolus, prophylaxis against venous thrombosis or systemic embolization in high risk patients. 2.5 - 3.5 Mechanical heart valves 8 I82.621 E61.1 9 THERAPEUTIC INR RANGE: 2.0 - 3.0 DVT, Pulmonary embolus, prophylaxis against venous thrombosis or systemic embolization in high risk patients. 2.5 - 3.5 Mechanical heart valves 10 I82.621 11 THERAPEUTIC INR RANGE: 2.0 - 3.0 DVT, Pulmonary embolus, prophylaxis against venous thrombosis or systemic embolization in high risk patients. 2.5 - 3.5 Mechanical heart valves 12 THERAPEUTIC INR RANGE: 2.0 - 3.0 DVT, Pulmonary embolus, prophylaxis against venous thrombosis or systemic embolization in high risk patients. 2.5 - 3.5 Mechanical heart valves 13 I82.621 E61.1 14 THERAPEUTIC INR RANGE: 2.0 - 3.0 DVT, Pulmonary embolus, prophylaxis against venous thrombosis or systemic embolization in high risk patients. 2.5 - 3.5 Mechanical heart valves 15 8:00 [facility] 10/21/17 [id number] 16 URINE, CLEAN CATCH 17 AMS, OVERDOSE 18 Note: Persistent reduction for 3 months or more in an eGFR <60 mL/min/1.73 m2 defines CKD. Patients with eGFR values >/=60 mL/min/1.73 m2 may also have CKD if evidence of persistent proteinuria is present. The original MDRD equation for estimated GFR is not valid for patients less than 18 years of age. Additional information may be found at www.kdoqi.org. 19 OPERATION/PROCEDURE Lap. domitila. DIAGNOSIS: "GALLBLADDER, CHOLECYSTECTOMY": CHRONIC CHOLECYSTITIS. NO EVIDENCE OF DYSPLASIA NOR NEOPLASIA APPRECIATED. Vicky GROSS Received in formalin labeled, "GALLBLADDER" is a 5.1 x 2.5 x 1.5 cm. mandujano-pink , soft gallbladder with a smooth serosal surface. Upon opening it contains approximately 5 mL of thick pale bile. The wall of the gallbladder measures up to 0.2 cm. in thickness. The mucosa is green-yellow and velvety without echols streaks. No tumor nor necrosis is seen. No stone is identified. Senior It Project Manager sections are submitted in one block. JW/clf MICROSCOPIC Sections show gallbladder mucosa lined by columnar epithelium with focal synechia. The submucosa has a mild infiltrate of lymphocytes and plasma cells. The muscular wall is slightly fibrotic and hypertrophied. PRE OPERATIVE DIAGNOSIS Chronic cholecystitis REVIEW CODE CODE: I Signed Electronically signed EVER DESAI MD 05/31/14 1404 Procedures Date Code Description Status 05/30/2018 72848 Radiology, Foot, Complete-3 Views Completed 08/30/2017 57872 EKG Interpretation And Report Only Completed 08/29/2017 25759 EKG Interpretation And Report Only Completed 08/29/2017 55920 EKG Interpretation And Report Only Completed 05/29/2014 47625 Laparoscopy; cholecystectomy Completed 05/29/2014 95256 Anesthesia, Upper Abdomen Surgery Not Otherwise Spec Completed 08/23/2013 24283 Anesthesia, Hysteroscopy, Hystersalpingography Completed 04/26/2011 [id number] Mammogram Completed Encounters Type Date Location Provider Dx Diagnosis Office Visit 05/30/2018 Orthopaedic Office Cha Garcia, M79.671 Pain in right 10:15a [place] foot S93.401A Sprain of unspecified ligament of right ankle, init encntr Office Visit 02/16/2018 10:45a Oncology Office [place], Z86.718 Personal history Taran, DO of other venous thrombosis and embolism E61.1 Iron deficiency M79.605 Pain in left leg Office Visit 02/08/2018 9:45a Oncology Office Jorge Luis, I82.621 Acute embolism Taran, DO and thrombosis of deep veins of r up extrem E61.1 Iron deficiency Office Visit 02/01/2018 10:45a Oncology Office Jorge Luis, I82.621 Acute embolism Taarn, DO and thrombosis of deep veins of r up extrem E61.1 Iron deficiency G43.101 Migraine with aura, not intractable, with status migrainosus Office Visit 01/18/2018 1:45p Oncology Office Jorge Luis, I82.621 Acute embolism Taran, DO and thrombosis of deep veins of r up extrem E61.1 Iron deficiency Office Visit 12/28/2017 2:30p Oncology Office Jorge Luis, I82.621 Acute embolism Taran, DO and thrombosis of deep veins of r up extrem E61.1 Iron deficiency F17.210 Nicotine dependence, cigarettes, uncomplicated M79.602 Pain in left arm Office Visit 12/13/2017 9:30a Oncology Office Jorge Luis, I82.621 Acute embolism Taran, DO and thrombosis of deep veins of r up extrem E61.1 Iron deficiency F17.210 Nicotine dependence, cigarettes, uncomplicated Office Visit 11/18/2017 2:45p Oncology Office Jorge Luis, I82.621 Acute embolism Taran, DO and thrombosis of deep veins of r up extrem E61.1 Iron deficiency F17.210 Nicotine dependence, cigarettes, uncomplicated M79.602 Pain in left arm Office Visit 11/15/2017 9:45a Oncology Office Jorge Luis, I82.621 Acute embolism Taran, DO and thrombosis of deep veins of r up extrem E61.1 Iron deficiency F17.210 Nicotine dependence, cigarettes, uncomplicated M79.602 Pain in left arm Office Visit 11/02/2017 9:00a Oncology Office Jorge Luis, I82.621 Acute embolism Taran, DO and thrombosis of deep veins of r up extrem F17.210 Nicotine dependence, cigarettes, uncomplicated Office Visit 05/07/2014 2:15p Surgical Office Jonny, 575.11 Cholecystitis MD Jose Alberto Chronic Office Visit 04/19/2014 2:14p Joseph Chua, 789.00 Pain Abdominal [facility] Office Visit 04/11/2014 2:11p Teodoro Eduardo 577.0 Pancreatitis [facility] Office Visit 02/15/2013 11:00a Surgical Office Jonny, 789.01 Pain Abdominal MD Jose Alberto Right Upper Quadrant Plan of Treatment 05/30/2018 - Cha Garcia, PAM79.671 Pain in right footS93.401A Sprain of unspecified ligament of right ankle, initial encounterNew Medication:Meloxicam 15 mg - 1 by mouth every dayNew Therapy:Physical/Occupational TherapyComments:I have switched her out of the ankle brace from the emergency room and into a different one here which was more comfortable for her. She'll continue with her walking sticks or crutches. I do recommend a course of physical therapy. Oral anti-inflammatories, a new one was prescribed today. She should continue with the ice and gentle range of motion. Patient will return to the office for recheck in6 weeks.AllFollow up:6 wk
[2018-06-29 12:48] VITALS: BP 100/71
[2018-06-29] MEDS ORDERED: Acetaminophen TAB* 325 MG PO ONE (13:33)
--- NOTE | 2018-06-29 13:36 | UC ---
Head Injury HPI - HPI Summary HPI Summary: Pt c/o BOLIVAR s/p hitting head against door frame on afternoon of 06/28/18 while walking to bathroom from standing height. Pt denies LOC, nausea, vomiting, decreased mentation, or cognition, denies, nose bleed or bleeding from ears. Pt placed ice on forehead and took "two aspirin" after hitting head. Pt states that she was able to continue with normal daily tasks with no problem. Pt states that she woke this morning with BOLIVAR, dizziness, occasional nausea. - History Of Current Complaint Chief Complaint: UCHeadInjury Stated Complaint: HEAD INJURY-NAUSEA,DIZZY Time Seen by Provider: 06/29/18 13:22 Hx Obtained From: Patient Hx Last Menstrual Period: 08/28/17 ?: No Onset/Duration: Sudden Onset Severity Currently: Moderate Severity Initially: Mild Pain Intensity: 5 Character: Dull Aggravating Factor(s): Other - touch. Alleviating Factor(s): Other - rest Associated Signs And Symptoms: Positive: Neck Pain - has preexisitng neck disorder, Nausea - Risk Factors SDH Risk Factor: Negative - Allergies/Home Medications Allergies/Adverse Reactions: Allergies Allergy/AdvReac Type Severity Reaction Status Date / Time adhesive tape Allergy Blisters Verified 06/29/18 12:40 Penicillins Allergy Swelling Verified 06/29/18 12:40 Environment/Seasonal Hayfever Allergy Sneeze, Uncoded 06/29/18 12:40 Congestion Home Medications: Home Medications Aspirin 81 mg CHEW TAB* [Aspirin Low Dose TAB*] 81 mg PO DAILY 06/29/18 [ History Confirmed 06/29/18] Cyclobenzaprine TAB* [Flexeril 10 MG TAB*] 10 mg PO DAILY 06/29/18 [History Confirmed 06/29/18] Fluticasone NASAL SPRAY 50MCG* [Flonase NASAL SPRAY 50MCG*] 2 spray BOTH NARES DAILY 06/29/18 [History Confirmed 06/29/18] Loratadine 10 mg PO DAILY 06/29/18 [History Confirmed 06/29/18] PMH/Surg Hx/FS Hx/Imm Hx Previously Healthy: Yes - Surgical History Surgical History: Yes Surgery Procedure, Year, and Place: bladder mesh. TONSILLECTOMY. 1995 BILATERAL TUBAL LIGATION, [facility]. 2009 LYMPH NO[facility] [place]. 05/29/2014 LAPAROSCOPIC CHOLECYSTECTOMY, [facility]. left ovary & fallopian tube removal 09/2015. hysterectomy. total hysterectomy. appy - Family History Known Family History: Positive: Cardiac Disease, Hypertension - Social History Occupation: Employed Full-time Lives: With Family Alcohol Use: None Substance Use Type: None Smoking Status (MU): Former Smoker Type: Cigarettes Amount Used/How Often: 1/2 PPD Length of Time of Smoking/Using Tobacco: 30 YEARS Have You Smoked in the Last Year: Yes When Did the Patient Quit Smoking/Using Tobacco: 09/2016 Household Exposure Type: Cigarettes - Immunization History Most Recent Influenza Vaccination: 2016 Vaccination Up to Date: Yes Review of Systems All Other Systems Reviewed And Are Negative: Yes Constitutional: Positive: Negative Skin: Positive: Other - swelling right anterior forehead Eyes: Positive: Negative ENT: Positive: Negative Respiratory: Positive: Negative Cardiovascular: Positive: Negative Gastrointestinal: Positive: Negative Genitourinary: Positive: Negative Motor: Positive: Negative Neurovascular: Positive: Negative Musculoskeletal: Positive: Negative Neurological: Positive: Headache Psychological: Positive: Negative Is Patient Immunocompromised?: No Physical Exam Triage Information Reviewed: Yes Appearance: Well-Appearing, Other: - pt was fidgety during exam, moved throughout exam, raising arms over head, shifting position in seat Vital Signs: Initial Vital Signs Temp 97.3 F 06/29/18 12:43 Pulse 78 06/29/18 12:43 Resp 16 06/29/18 12:43 BP 100/71 06/29/18 12:43 Pulse Ox 100 06/29/18 12:43 Vital Signs Reviewed: Yes Eye Exam: Normal ENT Exam: Normal ENT: Positive: Normal ENT inspection Neck exam: Normal Respiratory Exam: Normal Cardiovascular Exam: Normal Musculoskeletal Exam: Normal Neurological Exam: Normal Psychological Exam: Normal Skin Exam: Other - has slight swelling to right side of forehead, non ecchymotic, no step up palpated, soft, ~ 3 cm in diameter Head Injury Course/Dx - Course Course Of Treatment: I discussed with the pt the need to f/u with PCP and if symptoms worsen to seek care at the closest emergency room. Pt verbalized understanding and agreed to plan of care. - Differential Dx/Diagnosis Differential Diagnosis/HQI/PQRI: Concussion Without LOC, Contusion, Skull Fracture Provider Diagnosis: Concussion, Contusion of forehead Discharge - Sign-Out/Discharge Documenting (check all that apply): Patient Departure All imaging exams completed and their final reports reviewed: No Studies - Discharge Plan Condition: Stable Disposition: HOME-RECOMMEND TO ED Patient Education Materials: Concussion (ED), Head Injury (ED) Referrals: Beverly Marrero [Primary Care Provider] - If Needed Additional Instructions: It is recommended that you seek care at the closest emergency department if your symptoms do not improve or worsen. - Billing Disposition and Condition Condition: STABLE Disposition: Home-Recommend to ED
== END 2018-06-29 13:41 | disposition home health service (06) ==
LOC: UCCORT 12:23
DX: S00.83XA Contusion of other part of head, initial encounter (principal); S06.0X0A Concussion without loss of consciousness, initial encounter; Z91.09 Other allergy status, other than to drugs and biological substances; Z88.0 Allergy status to penicillin; Z79.82 Long term (current) use of aspirin; Z87.891 Personal history of nicotine dependence; W22.8XXA Striking against or struck by other objects, initial encounter; Y93.01 Activity, walking, marching and hiking; Y92.9 Unspecified place or not applicable
CPT/HCPCS: 99212; A9270-GY; G0463

== ENCOUNTER 2018-08-30 10:45 | Emergency (ER) | payer OTHER ==
[2018-08-30 11:07] VITALS: BP 119/76
--- NOTE | 2018-08-30 12:03 | UC ---
Shoulder Pain HPI - HPI Summary HPI Summary: Pt c/o gradual onset of right shoulder pain that began " a few days ago". Pt denies recent injury or trauma, any prior surgery. Pt is right handed but denies any overuse of arm/shoulder. Pt states pain worsens with movement. Pt has hx of RSD and is transitioning providers for management - History of Current Complaint Chief Complaint: UCUpperExtremity Stated Complaint: RIGHT SHOULDER Time Seen by Provider: 08/30/18 11:09 Hx Obtained From: Patient Hx Last Menstrual Period: 08/28/17 ?: No Onset/Duration: Gradual Onset, Lasting Days, Worse Since - onset Timing: Constant Severity Initially: Mild Severity Currently: Moderate Pain Intensity: 3 Character: Dull, Aching, Stiffness Aggravating Factor(s): Movement Alleviating Factor(s): Rest Associated Signs And Symptoms: Positive: Negative Related History: Dominant Hand Right - Risk Factors Non-Orthopedic Risk Factor: Negative DVT Risk Factors: Negative Septic Arthritis Risk Factor: Negative - Allergies/Home Medications Allergies/Adverse Reactions: Allergies Allergy/AdvReac Type Severity Reaction Status Date / Time adhesive tape Allergy Blisters Verified 08/30/18 11:00 Penicillins Allergy Swelling Verified 08/30/18 11:00 Environment/Seasonal Hayfever Allergy Sneeze, Uncoded 08/30/18 11:00 Congestion Home Medications: Home Medications Buprenorp/Nalox 8-2 MG SL TAB [Suboxone 8-2 mg SL TAB*] 1 tab.sl SL BID [History Confirmed 08/30/18] PMH/Surg Hx/FS Hx/Imm Hx Previously Healthy: Yes - RSD - Surgical History Surgical History: Yes Surgery Procedure, Year, and Place: bladder mesh. TONSILLECTOMY. 1995 BILATERAL TUBAL LIGATION, [facility]. 2010 LYMPH NODE RIGHT SIDE BACK OF SHOULDER REMOVED, [place]. 05/29/2014 LAPAROSCOPIC CHOLECYSTECTOMY, [facility]. left ovary & fallopian tube removal 09/2015. hysterectomy. total hysterectomy. appy - Family History Known Family History: Positive: Cardiac Disease, Hypertension - Social History Occupation: Disabled Lives: With Family Alcohol Use: Rare Substance Use Type: None Smoking Status (MU): Former Smoker Type: Cigarettes Amount Used/How Often: 1/2 PPD Length of Time of Smoking/Using Tobacco: 30 YEARS Have You Smoked in the Last Year: Yes When Did the Patient Quit Smoking/Using Tobacco: 09/2016 Household Exposure Type: Cigarettes - Immunization History Most Recent Influenza Vaccination: 2016 Vaccination Up to Date: Yes Review of Systems All Other Systems Reviewed And Are Negative: Yes Constitutional: Positive: Negative Skin: Positive: Negative Eyes: Positive: Negative ENT: Positive: Negative Respiratory: Positive: Negative Cardiovascular: Positive: Negative Gastrointestinal: Positive: Negative Genitourinary: Positive: Negative Motor: Positive: Decreased ROM - right [place] Neurovascular: Positive: Negative Musculoskeletal: Positive: Arthralgia, Decreased ROM - right shoulder, Myalgia Neurological: Positive: Negative Psychological: Positive: Negative Is Patient Immunocompromised?: No Physical Exam Triage Information Reviewed: Yes Appearance: Pain Distress - with ROM Vital Signs: Initial Vital Signs Temp 97.4 F 08/30/18 11:02 Pulse 80 08/30/18 11:02 Resp 15 08/30/18 11:02 BP 119/76 08/30/18 11:02 Pulse Ox 99 08/30/18 11:02 Vital Signs Reviewed: Yes Eye Exam: Normal ENT Exam: Normal Dental Exam: Normal Neck exam: Normal Respiratory: Positive: No respiratory distress Musculoskeletal: Positive: Strength Limited @ - right shoulder, ROM Limited @ - right shoulder Neurological Exam: Normal Psychological Exam: Normal Skin Exam: Normal Diagnostics - Radiology No standard instances Radiology Interpretation Completed By: Radiologist - IMPRESSION: NO ACUTE OSSEOUS INJURY. IF SYMPTOMS PERSIST, RECOMMEND REPEAT IMAGING. Shoulder Course/Dx - Course Course Of Treatment: Pt states she has an appointment with [facility] for pain management for RSD. - Differential Dx/Diagnosis Differential Diagnosis/HQI/PQRI: Arthritis, Bursitis, Tendonitis Provider Diagnosis: Right shoulder pain Discharge - Sign-Out/Discharge Documenting (check all that apply): Patient Departure All imaging exams completed and their final reports reviewed: Yes - Discharge Plan Condition: Stable Disposition: HOME Prescriptions: predniSONE TAB* [Deltasone 10 MG TAB*] 30 mg PO DAILY #12 tab Patient Education Materials: Shoulder Pain (ED) Referrals: Beverly Marrero [Primary Care Provider] - If Needed Uzair Tinoco MD [Medical Doctor] - If Needed Additional Instructions: PLEASE KEEP YOUR APPOINTMENT WITH [facility] SCHEDULED. PLEASE FOLLOW UP WITH YOUR PCP NEEDED. WE HAVE PROVIDED A NAME OF AN ORTHOPEDIC PERSON FOR YOU T FOLLOW UP WITH NEEDED. - Billing Disposition and Condition Condition: STABLE Disposition: Home
== END 2018-08-30 12:22 | disposition home or self-care (01) ==
LOC: UCCORT 10:45
DX: M25.511 Pain in right shoulder (principal); J30.2 Other seasonal allergic rhinitis; Z88.0 Allergy status to penicillin; Z91.048 Other nonmedicinal substance allergy status; Z87.891 Personal history of nicotine dependence
CPT/HCPCS: 99212; G0463

== ENCOUNTER 2018-11-14 14:59 | Emergency (ER) | payer OTHER ==
[2018-11-14 15:26] VITALS: BP 103/65
[2018-11-14] MEDS ORDERED: Dexamethasone IV* 4 MG/ML 1 ML (4 MG) PO ONE (15:36)
[2018-11-14] MEDS ORDERED: Acetaminophen TAB* 325 MG PO ONE (15:36)
[2018-11-14] MEDS ORDERED: Cyclobenzaprine TAB* 10 MG PO ONE (15:37)
--- NOTE | 2018-11-14 15:47 | ED ---
Neck Pain - HPI Summary HPI Summary: 48 yr old with history of herniated cervical disks presents here with neck pain since yesterday. 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 She states she has had neck and spine issues in the past with disc herniations. She denies numbness, weakness. No bowel or bladder incontinence. - History of Current Complaint Chief Complaint: UCBackPain Stated Complaint: NECK PAIN Time Seen by Provider: 11/14/18 15:30 Hx Last Menstrual Period: 08/28/17 Pain Intensity: 9 - Allergies/Home Medications Allergies/Adverse Reactions: Allergies Allergy/AdvReac Type Severity Reaction Status Date / Time adhesive tape Allergy Blisters Verified 11/14/18 15:26 Penicillins Allergy Swelling Verified 11/14/18 15:26 Environment/Seasonal Hayfever Allergy Sneeze, Uncoded 11/14/18 15:26 Congestion Home Medications: Home Medications Pregabalin [Lyrica] 150 mg PO BID 11/14/18 [History Confirmed 11/14/18] PMH/Surg Hx/FS Hx/Imm Hx Endocrine/Hematology History: Reports: Hx Anemia - NO MEDS Denies: Hx Diabetes Cardiovascular History: Denies: Hx Congestive Heart Failure, Hx Hypertension, Hx Pacemaker/ICD Respiratory History: Reports: Hx Chronic Obstructive Pulmonary Disease (COPD), Other Respiratory Problems/Disorders GI History: Reports: Hx Gall Bladder Disease - domitila 05/2014, Hx Gastroesophageal Reflux Disease - NO MEDS, Other GI Disorders - pancreatitis, NO PROBLEMS NOW History: Reports: Other Problems/Disorders - HX OF UTI, NONE RECENTLY Denies: Hx Renal Disease Musculoskeletal History: Reports: Hx Back Problems Sensory History: Reports: Hx Contacts or Glasses Opthamlomology History: Reports: Hx Contacts or Glasses Neurological History: Reports: Hx Headaches, Hx Migraine - R/T CHRONIC NECK PROBLEM Psychiatric History: Reports: Hx Depression - BIPOLAR, NO MEDS PRESENTLY Denies: Hx Panic Disorder - Surgical History Surgery Procedure, Year, and Place: bladder mesh. TONSILLECTOMY. 1995 BILATERAL TUBAL LIGATION, [facility]. 2010 LYMPH NODE RIGHT SIDE BACK OF SHOULDER REMOVED, [place]. 05/29/2014 LAPAROSCOPIC CHOLECYSTECTOMY, [facility]. left ovary & fallopian tube removal 09/2015. hysterectomy. total hysterectomy. appy Hx Anesthesia Reactions: Yes - GALLBLADDER - DIFFICULTY WAKING - VS DROPPED X 2 Infectious Disease History: No Infectious Disease History: Denies: Traveled Outside the [place] in Last 30 Days - Family History Known Family History: Positive: Cardiac Disease, Hypertension - Social History Alcohol Use: Rare Substance Use Type: Reports: None Smoking Status (MU): Former Smoker Type: Cigarettes Amount Used/How Often: 1/2 PPD Length of Time of Smoking/Using Tobacco: 30 YEARS Have You Smoked in the Last Year: Yes Review of Systems Constitutional: Negative Positive: Other - neck pain All Other Systems Reviewed And Are Negative: Yes Physical Exam Triage Information Reviewed: Yes Vital Signs On Initial Exam: Initial Vitals Temp Pulse Resp BP Pulse Ox 98.1 F 74 16 103/65 100 11/14/18 15:18 11/14/18 15:18 11/14/18 15:18 11/14/18 15:18 11/14/18 15:18 Vital Signs Reviewed: Yes Appearance: Positive: Well-Appearing, No Pain Distress Skin: Positive: Warm, Skin Color Reflects Adequate Perfusion Head/Face: Positive: Normal Head/Face Inspection Eyes: Positive: EOMI ENT: Positive: Normal ENT inspection Neck: Positive: Nontender Respiratory/Lung Sounds: Positive: Clear to Auscultation Cardiovascular: Positive: RRR. Negative: Murmur Abdomen Description: Positive: Nontender. Negative: Distended Musculoskeletal: Positive: Strength/ROM Intact Neurological: Positive: Sensory/Motor Intact, Alert, Oriented to Person Place, Time, CN Intact II-III, Normal Gait, Speech Normal Psychiatric: Positive: Normal Diagnostics - Vital Signs Vital Signs Temp Pulse Resp BP Pulse Ox 11/14/18 15:18 98.1 F 74 16 103/65 100 - Laboratory Lab Statement: Any lab studies that have been ordered have been reviewed, and results considered in the medical decision making process. - CT cervical spine CT Interpretation Completed By: Radiologist - CARROL, discs Neck Course/Dx - Course Course Of Treatment: 48 yr old with singinicant neck pain and little relief with flexeril, decadron. Will DC. 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 - Diagnoses Provider Diagnoses: Neck pain Discharge - Sign-Out/Discharge Documenting (check all that apply): Patient Departure All imaging exams completed and their final reports reviewed: Yes - Discharge Plan Condition: Good Disposition: HOME-RECOMMEND TO ED Patient Education Materials: Neck Pain (ED) Referrals: Marielena Ansari MD [Primary Care Provider] - - Billing Disposition and Condition Condition: GOOD Disposition: Home-Recommend to ED
== END 2018-11-14 16:37 | disposition home health service (06) ==
LOC: UCCORT 14:59
DX: M54.2 Cervicalgia (principal); Z87.891 Personal history of nicotine dependence
CPT/HCPCS: 72125; 99212; A9270-GY; G0463; J1100

== ENCOUNTER 2019-03-02 09:22 | Emergency (ER) | payer OTHER ==
--- OUTSIDE RECORDS SUMMARY | 2019-03-02 09:37 | XMS REPORT | Continuity of Care Document ---
:1970 External Reference #:[id number] Author Name Cha Garcia PA Address [address] 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 [phone] Problems Active Problems Provider Date Right upper quadrant pain Jose Alberto Fuller MD Onset: 02/15/2013 Chronic cholecystitis Jose Alberto Fuller MD Onset: 03/01/2013 Deep venous thrombosis of upper extremity Taran Kang DO Onset: 2017 Tobacco user Taran Kang DO Onset: 11/02/2017 Iron deficiency Taran Kang DO Onset: 11/15/2017 Pain, unspecified Taran Kang DO Onset: 11/15/2017 Pain in left arm Taran Kang DO Onset: 11/15/2017 Migraine with aura Taran Kang DO Onset: 02/01/2018 Pain in calf Taran Kang DO Onset: 02/08/2018 Pain in left lower limb Taran Kang DO Onset: 02/16/2018 Sprain of ankle Cha Garcia PA Onset: 05/30/2018 Social History Type Date Description Comments Sex Unknown Tobacco Use Start: Unknown End: Quit 2017 Unknown Smoking Status Reviewed: 01/18/19 Quit 2017 Smokeless Tobacco Never Used Smokeless Tobacco ETOH Use Rarely consumes alcohol Tobacco Use Start: Unknown End: Patient is a former smoker Recreational Drug Use Denies Drug Use Allergies, Adverse Reactions, Alerts Active Allergies Reaction Severity Comments Date Penicillin 02/06/2013 Adhesives 11/02/2017 Medications Active Medications SIG Qnty Indications Ordering Provider Date Prazosin HCL take 1 capsule Unknown 2mg every night mdd 1 Capsules Fluoxetine HCL (PMDD) 1 by mouth every Unknown night 20mg Capsules Ondansetron HCL 1 tab every 6hr Unknown 4mg as needed for Tablets nausea Linzess 1 by mouth every 90caps Peggy Maheshalvaro, 145mcg Capsules day Naproxen 1 tab po bid Unknown 500mg Tablets Fluticasone [place] Two Sprays Unknown Propionate In Each Nostril 50mcg/Act Every Day Suspension Loratadine Take One Tablet Unknown 10mg Tablets By Mouth Every Day AT Bedtime Dicyclomine HCL Take One Tablet Unknown 20mg By Mouth Twice A Tablets Day Docusate Sodium & take one tablet Unknown Senna Stimulant by mouth every 12 Laxative/Stool hours as needed Softener for constipation, 8.6-50mg stop taking if it Tablets gives you diarrhea Pregabalin 1 bid Carla 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 Immunizations Description No Information Available Vital Signs Date Vital Result Comment 01/18/2019 8:35am BP Systolic Sitting Left Arm 102 mmHg BP Diastolic Sitting Left Arm 69 mmHg Body Temperature 96.8 F Heart Rate 96 /min Height 66 inches 5'6" Weight 171.00 lb BMI (Body Mass Index) 27.6 kg/m2 BSA (Body Surface Area) 1.87 m2 [place] body weight in kilograms 59 kg O2 % BldC Oximetry 97 % 07/11/2018 9:59am BP Systolic 117 mmHg BP Diastolic 79 mmHg Body Temperature 97.6 F Heart Rate 118 /min Height 66 inches 5'6" Weight 169.00 lb BMI (Body Mass Index) 27.3 kg/m2 BSA (Body Surface Area) 1.86 m2 [place] body weight in kilograms 59 kg O2 % BldC Oximetry 98 % room air Pain Level 6 Results Description No Information Available Procedures Date Code Description Status 01/18/2019 76603 Radiology, Ankle Complete Completed 11/29/2014 70627097 Colonoscopy Completed 04/26/2011 [id number] Mammogram Completed Medical Devices Description No Information Available Encounters Description No Information Available Assessments Date Code Description Provider 01/18/2019 M79.661 Pain in right lower leg Cha Garcia PA 01/18/2019 M25.571 Pain in right ankle and joints of right foot Cha Garcia PA Plan of Treatment Future Appointment(s):02/01/2019 9:15 am - Cha Garcia PA at [id number]/09/2018 - Devaughn Hahn, MDR10.31 Right lower quadrant painComments: right lower quadrant painprior cholecystectomy in 2015appendectomy, hysterectomy and oopherectomy within the the past yearI am concerned about adhesions given that her pain is exacerbated by even slight movementsreferral back to Dr Whitman94.5 Abnormal results of liver function studiesComments: elevated lfts rule out hepatitis Functional Status Functional Condition Comment Date Status Complete lower and upper and lower dentures Active Mental Status Description No Information Available Referrals Description No Information Available
--- OUTSIDE RECORDS SUMMARY | 2019-03-02 09:37 | XMS REPORT | Continuity of Care Document ---
:1970 External Reference #:[id number] Author Name Cha Garcia PA Address [address] 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 [phone] Problems Active Problems Provider Date Right upper [...] of ankle Cha Garcia PA Onset: 05/30/2018 Sprain of hip Cha Garcia PA Onset: 02/01/2019 Social History Type Date Description Comments Sex Unknown Tobacco Use Start: Unknown End: Quit 2017 Unknown Smoking Status Reviewed: 01/24/19 Quit 2017 Smokeless Tobacco Never Used Smokeless Tobacco ETOH Use Rarely consumes alcohol Tobacco Use Start: Unknown End: Patient is a former smoker Recreational Drug Use Denies Drug Use Allergies, Adverse Reactions, Alerts Active Allergies Reaction Severity Comments Date Penicillin 02/06/2013 Adhesives 11/02/2017 Medications Active Medications SIG Qnty Indications Ordering Date Provider Cyclobenzaprine HCL 3 times a day as 15tabs Georgie Rodriguez, 02/01/2019 10mg needed as needed Tablets for muscle spasms Prazosin HCL take 1 capsule Unknown 2mg Capsules every night mdd 1 Fluoxetine HCL (PMDD) 1 by mouth every Unknown 20mg night Capsules Ondansetron HCL 1 tab every 6hr Unknown 4mg Tablets as needed for nausea Linzess 1 by mouth every 90caps Matthew Woods, 145mcg Capsules day Naproxen 1 tab po bid Unknown 500mg Tablets Fluticasone Propionate [place] Two Sprays Unknown In Each Nostril 50mcg/Act Suspension Every Day Loratadine Take One Tablet Unknown 10mg Tablets By Mouth Every Day AT Bedtime Dicyclomine HCL Take One Tablet Unknown 20mg By Mouth Twice A Tablets Day Docusate Sodium & Senna take one tablet Unknown Stimulant by mouth every Laxative/Stool Softener 12 hours as needed for 8.6-50mg Tablets constipation, stop taking if it gives you diarrhea Pregabalin 1 bid Alonzo, Carla 150mg Capsules CFA Immunizations Description No Information Available Vital Signs Date Vital Result Comment 02/01/2019 10:19am BP Systolic 100 mmHg BP Diastolic 68 mmHg Body Temperature 97.6 F Heart Rate 84 /min Height 66 inches 5'6" Weight 173.00 lb BMI (Body Mass Index) 27.9 kg/m2 BSA (Body Surface Area) 1.88 m2 [place] body weight in kilograms 59 kg O2 % BldC Oximetry 98 % 01/18/2019 8:35am BP Systolic Sitting Left Arm 102 mmHg BP Diastolic Sitting Left Arm 69 mmHg Body Temperature 96.8 F Heart Rate 96 /min Height 66 inches 5'6" Weight 171.00 lb BMI (Body Mass Index) 27.6 kg/m2 BSA (Body Surface Area) 1.87 m2 [place] body weight in kilograms 59 kg O2 % BldC Oximetry 97 % Results Description No Information Available Procedures Date Code Description Status 01/18/2019 54378 Radiology, Ankle Complete Completed 11/29/2014 [id number] Colonoscopy Completed 04/26/2011 [id number] Mammogram Completed Medical Devices Description No Information Available Encounters Type Date Location Provider Dx Diagnosis Office Visit 02/01/2019 [facility] Cha Garcia, S76.311A Strain 10:15a PA msl/fasc/tnd post grp at thi lev, right thigh, init Office Visit 01/18/2019 [facility] Office Cha Garcia, M25.561 Pain in right 8:30a PA knee M79.661 Pain in right lower leg M25.571 Pain in right ankle and joints of right foot W10.9xxA Fall (on) (from) unspecified stairs and steps, init encntr Assessments Date Code Description Provider 02/01/2019 S76.311A Strain of muscle, fascia and tendon of the Cha Garcia PA posterior muscle group at thigh level, right thigh, initial encounter 01/18/2019 M25.561 Pain in right knee Cha Garcia PA 01/18/2019 M79.661 Pain in right lower leg Cha Garcia PA 01/18/2019 M25.571 Pain in right ankle and joints of right foot Cha Garcia PA 01/18/2019 W10.9xxA Fall (on) (from) unspecified stairs and steps, Cha Garcia PA initial encounter Plan of Treatment Future Appointment(s):02/21/2019 9:45 am - Cha Garcia PA at [id number]/09/2018 - Devaughn Hahn, MDR10.31 Right lower quadrant [...]
== END 2019-03-02 11:10 | disposition left against medical advice (07) ==
LOC: UCCORT 09:22
DX: Z53.21 Procedure and treatment not carried out due to patient leaving prior to being seen by health care provider (principal)

== ENCOUNTER 2019-03-18 10:07 | Emergency (ER) | payer OTHER ==
--- OUTSIDE RECORDS SUMMARY | 2019-03-18 10:42 | XMS REPORT | Continuity of Care Document ---
:1970 External Reference #:[id number] Author Name Devaughn Hahn MD (transmitted by agent of provider Taylor Carballo) Address [address] [place] [address] Care Team Providers Name Role Phone Marielena Ansari MD - Family Medicine Care Team Information Chairman Ceo Problems Active Problems Provider Date Right upper [...] nausea Linzess 1 by mouth every 90caps SyMahesh callewarup, 145mcg Capsules day Naproxen 1 tab po bid Unknown 500mg Tablets Fluticasone Propionate [place] Two Sprays Unknown In Each Nostril 50mcg/Act [...] it gives you diarrhea Pregabalin 1 bid AlonzoLindsey dominguezissa 150mg Capsules 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87 m2 [place] body weight in kilograms 59 kg O2 % BldC Oximetry 97 % Results Description No Information Available Procedures Date Code Description Status 01/18/2019 80530 Radiology, Ankle Complete Completed 11/29/2014 74605479 Colonoscopy Completed 04/26/2011 [id number] Mammogram Completed Medical Devices Description No Information [...] Garcia PA initial encounter Plan of Treatment 02/01/2019 - Cha Garcia [id number] Strain of muscle, fascia and tendon of the posterior muscle group at thigh level, right thigh, initial encounterNew Therapy:Physical TherapyComments:I highly recommended physical therapy, she has also been given cyclobenzaprine to use as needed for muscle spasm. Patient return to the office for recheck in 3 weeks.AllNew Medication:Cyclobenzaprine HCL 10 mg - 3 times a day as needed as needed for muscle spasmsFollow up:3 wk Functional Status Functional Condition Comment Date Status Complete lower and upper and lower dentures Active Mental Status Description No Information Available Referrals Description No Information Available
[2019-03-18 10:50] VITALS: BP 113/80
--- NOTE | 2019-03-18 11:03 | UC ---
Hand/Wrist HPI - HPI Summary HPI Summary: 48-year-old female who had some right hand swelling and pain over the past 2 days. She also experienced some facial swelling underneath orbits bilaterally. She did start a new medication, Lyrica, within the past month however this is for she's had any kind of swelling. She also has seasonal allergies and she attributes swelling possibly to that. She denies any injury of her hands. She states occasionally she will fall but she has no known injury to her hand. She denies any difficulty breathing. - History Of Current Complaint Chief Complaint: UCUpperExtremity Stated Complaint: RIGHT HAND PAIN Time Seen by Provider: 03/18/19 10:55 Hx Obtained From: Patient Hx Last Menstrual Period: 08/28/17 ?: No Onset/Duration: Gradual Onset Severity Initially: Mild Severity Currently: Mild Pain Intensity: 3 Character Of Pain: Sharp, Aching Aggravating Factor(s): Movement, Flexion, Extension - Patient states occasionally she will have some sharp shooting pain from her right hand up her forearm. Alleviating Factor(s): Nothing Associated Signs And Symptoms: Positive: Swelling - Mild swelling of her fingers. She mostly complains of pain in the fingers.. Negative: Numbness/ Tingling - Allergies/Home Medications Allergies/Adverse Reactions: Allergies Allergy/AdvReac Type Severity Reaction Status Date / Time adhesive tape Allergy Blisters Verified 03/18/19 10:51 Penicillins Allergy Swelling Verified 03/18/19 10:51 Environment/Seasonal Hayfever Allergy Sneeze, Uncoded 03/18/19 10:51 Congestion PMH/Surg Hx/FS Hx/Imm Hx Previously Healthy: Yes Respiratory History: COPD - Surgical History Surgical History: Yes Surgery Procedure, Year, and Place: bladder mesh. TONSILLECTOMY. 1995 BILATERAL TUBAL LIGATION, [facility]. 2010 LYMPH NODE RIGHT SIDE BACK OF SHOULDER REMOVED, [place]. 05/29/2014 LAPAROSCOPIC CHOLECYSTECTOMY, [facility]. left ovary & fallopian tube removal 09/2015. hysterectomy. total hysterectomy. appy - Family History Known Family History: Positive: Cardiac Disease, Hypertension - Social History Alcohol Use: None Substance Use Type: None Smoking Status (MU): Former Smoker Type: Cigarettes Amount Used/How Often: 1/2 PPD Length of Time of Smoking/Using Tobacco: 30 YEARS Have You Smoked in the Last Year: Yes When Did the Patient Quit Smoking/Using Tobacco: 09/2016 Household Exposure Type: Cigarettes - Immunization History Most Recent Influenza Vaccination: 2016 Vaccination Up to Date: Yes Review of Systems All Other Systems Reviewed And Are Negative: Yes Skin: Positive: Other - Patient has some facial swelling of her lower orbits bilaterally over the past 2 days which she attributes to seasonal allergies. Motor: Positive: Negative Neurovascular: Positive: Negative Musculoskeletal: Positive: Other: - Pain of right fingers with movement and mild swelling. No specific known cause. She states she has some shooting pain up her wrist and forearm with movement of her hand. Is Patient Immunocompromised?: No Physical Exam Triage Information Reviewed: Yes Appearance: Well-Appearing, No Pain Distress, Well-Nourished Vital Signs: Initial Vital Signs Temp 97.8 F 03/18/19 10:44 Pulse 86 03/18/19 10:44 Resp 18 03/18/19 10:44 BP 113/80 03/18/19 10:44 Pulse Ox 98 03/18/19 10:44 Vital Signs Reviewed: Yes Eyes: Positive: Conjunctiva Clear ENT: Positive: Hearing grossly normal, Pharynx normal, TMs normal, Uvula midline Neck: Positive: Supple, Nontender, No Lymphadenopathy Respiratory: Positive: Lungs clear, Normal breath sounds, No respiratory distress, No accessory muscle use Cardiovascular: Positive: RRR, No Murmur, Pulses Normal, Brisk Capillary Refill Musculoskeletal: Positive: Strength Intact, ROM Limited @ - Range of motion mildly limited just cause of swelling of the fingers. Neurological: Positive: Alert, Muscle Tone Normal - Good peripheral pulses neuro sensation capillary refill, fingers mildly tender on palpation however normal color and temperature. Psychological Exam: Normal Skin: Positive: Other - Patient has mild edema underneath both orbits which is nontender on palpation, no cellulitis. Hand/Wrist Course/Dx - Course Course Of Treatment: Right hand x-ray:Indication: Right hand pain. 4 views of the right hand demonstrate no fracture or dislocation. No other bone or joint abnormality is identified. IMPRESSION: No fracture right hand is noted. The patient normally takes Claritin daily I advised her to continue this as well as Benadryl every 6 hours over the next day or 2. I would like her to stop the Lyrica for 2 days and if the swelling resolves she is to call her primary care provider who prescribes the Lyrica and talk with them about a possible allergic reaction although she has been on Lyrica for one month. Patient is agreeable to this plan of action. She's going to go the emergency room if she has any worsening symptoms, difficulty breathing, increased facial swelling or feeling like her throat is closing. She has a wrist splint at home which she would like to try for the hand pain however that may be due to the possible allergic reaction she is presently experiencing. - Differential Dx/Diagnosis Provider Diagnosis: Right hand pain, Allergic reaction Discharge ED - Sign-Out/Discharge Documenting (check all that apply): Patient Departure All imaging exams completed and their final reports reviewed: Yes - Discharge Plan Condition: Fair Disposition: HOME Patient Education Materials: Tendinitis (ED) Referrals: Marielena Ansari MD [Primary Care Provider] - Additional Instructions: Apply heat to the sore areas and elevate as much as possible. Stop the Lyrica for 2 days and take Benadryl 25 mg every 6 hours over the next one or 2 days. If you have increased facial swelling, difficulty breathing or feeling like your throat is closing you arr to go to the emergency room for further treatment. After stopping the Lyrica for 2 days, if you have improvement then contact her primary care provider who prescribes the Lyrica and discuss with them. - Billing Disposition and Condition Condition: FAIR Disposition: Home
== END 2019-03-18 11:48 | disposition home or self-care (01) ==
LOC: UCCORT 10:07
DX: M79.641 Pain in right hand (principal); R22.0 Localized swelling, mass and lump, head; T42.6X5A Adverse effect of other antiepileptic and sedative-hypnotic drugs, initial encounter; Y92.9 Unspecified place or not applicable; Z91.09 Other allergy status, other than to drugs and biological substances; Z87.891 Personal history of nicotine dependence; Z88.0 Allergy status to penicillin
CPT/HCPCS: 99211; G0463

== ENCOUNTER 2019-05-14 13:08 | Emergency (ER) | payer OTHER ==
[2019-05-14 14:44] VITALS: BP 116/71
--- NOTE | 2019-05-14 15:03 | UC ---
Skin Complaint HPI - HPI Summary HPI Summary: C/O left ear lobe swelling/ pain/ redness over the last several days. Doubled in size since yesterday. no fevers. Just menopausal hot flashes. - History of Current Complaint Chief Complaint: UCEar Stated Complaint: LEFT EAR PAIN Hx Obtained From: Patient Hx Last Menstrual Period: 08/28/17 ?: No Onset/Duration: Gradual Onset, Lasting Days - 3, Worse Since - yesterday Timing: Constant Onset Severity: Mild Current Severity: Moderate Pain Intensity: 3 Location: Ear (Left) Character: Swelling, Pain, Redness Aggravating Factor(s): Touch Alleviating Factor(s): Nothing Associated Signs & Symptoms: Positive: Tenderness. Negative: Nausea, Vomiting, Diaphoresis, Fever, Chills, Throat Tightening - Allergy/Home Medications Allergies/Adverse Reactions: Allergies Allergy/AdvReac Type Severity Reaction Status Date / Time adhesive tape Allergy Blisters Verified 03/18/19 10:51 Penicillins Allergy Swelling Verified 03/18/19 10:51 Environment/Seasonal Hayfever Allergy Sneeze, Uncoded 03/18/19 10:51 Congestion PMH/Surg Hx/FS Hx/Imm Hx Respiratory History: COPD - Surgical History Surgical History: Yes Surgery Procedure, Year, and Place: bladder mesh. TONSILLECTOMY. 1995 BILATERAL TUBAL LIGATION, [facility]. 2010 LYMPH NODE RIGHT SIDE BACK OF SHOULDER REMOVED, [place]. 05/29/2014 LAPAROSCOPIC CHOLECYSTECTOMY, [facility]. left ovary & fallopian tube removal 09/2015. hysterectomy. total hysterectomy. appy - Family History Known Family History: Positive: Unknown - Adopted, Cardiac Disease, Hypertension - Social History Occupation: Disabled Lives: Alone - with Boyfriend Alcohol Use: None Substance Use Type: None Smoking Status (MU): Former Smoker Type: Cigarettes Amount Used/How Often: 1/2 PPD Length of Time of Smoking/Using Tobacco: 30 YEARS Have You Smoked in the Last Year: Yes When Did the Patient Quit Smoking/Using Tobacco: 09/2016 Household Exposure Type: Cigarettes - Immunization History Most Recent Influenza Vaccination: 2016 Vaccination Up to Date: Yes Review of Systems All Other Systems Reviewed And Are Negative: Yes Skin: Positive: Other - Tender swelling left earlob Musculoskeletal: Positive: Arthralgia - Chronic low back pain Physical Exam Triage Information Reviewed: Yes Appearance: Well-Appearing, Well-Nourished, Pain Distress - mild Vital Signs: Initial Vital Signs Temp 97.3 F 05/14/19 14:41 Pulse 73 05/14/19 14:41 Resp 15 05/14/19 14:41 BP 116/71 05/14/19 14:41 Pulse Ox 100 05/14/19 14:41 Vital Signs Reviewed: Yes Eyes: Positive: Conjunctiva Clear Neck exam: Normal Respiratory Exam: Normal Cardiovascular Exam: Normal Musculoskeletal Exam: Normal Neurological Exam: Normal Psychological Exam: Normal Skin: Positive: Other - Left earlobe with 4mm tender subcutaneous nodule with surrounding erythema. Course/Dx - Differential Diagnoses - Skin Complaint Differential Diagnoses: Abscess, Cellulitis, Impetigo, Lymphadenitis - Diagnoses Provider Diagnosis: Abscess of left earlobe Discharge ED - Sign-Out/Discharge Documenting (check all that apply): Patient Departure All imaging exams completed and their final reports reviewed: No Studies - Discharge Plan Condition: Stable Disposition: HOME Prescriptions: Cephalexin CAP* [Keflex 500 CAP*] 500 mg PO QID #40 cap Patient Education Materials: Abscess (ED) Referrals: Marielena Ansari MD [Primary Care Provider] - Additional Instructions: Do warm packs for 20 minutes every 2 hours. - Billing Disposition and Condition Condition: STABLE Disposition: Home
== END 2019-05-14 15:11 | disposition home or self-care (01) ==
LOC: UCCORT 13:08
DX: H66.42 Suppurative otitis media, unspecified, left ear (principal); J44.9 Chronic obstructive pulmonary disease, unspecified; M54.5 Low back pain; G89.29 Other chronic pain; Z87.891 Personal history of nicotine dependence; Z91.09 Other allergy status, other than to drugs and biological substances; Z88.0 Allergy status to penicillin
CPT/HCPCS: 99212; G0463

== ENCOUNTER 2019-10-18 06:12 | Inpatient (IN) ==
[~2019-10-18 06:12] MED LIST: Lactated Ringers 1000 ml BAG 1,000 ML IV SCH; Vancomycin(*) 1,000 MG in NS 0.9% 250 ml 250 ML IVPB SCH
[2019-10-18] MEDS ORDERED: Propofol 10 mg/ml 100 ML BTL 400 ML ONE (06:51)
[2019-10-18] MEDS ORDERED: Remifentanil 2 MG VIAL ONE (06:51)
[2019-10-18] MEDS ORDERED: Rocuronium 50 mg VIAL 10 mg/ml 5 ml VIAL (50 mg) ONE (06:52)
[2019-10-18] MEDS ORDERED: Succinylcholine 200 mg VIAL 20 mg/ml 10 ml VIAL (200 mg) ONE (06:52)
[2019-10-18] MEDS ORDERED: Lidocaine 2% JELLY 6 ML TOPICAL ONE (06:53)
[2019-10-18] MEDS ORDERED: Bacitracin INJECTION 50,000 UNITS ONE (06:56)
[2019-10-18] MEDS ORDERED: Lidocaine 1% VIAL 10 MG/ML VIAL ONE (06:56)
[2019-10-18] MEDS ORDERED: Lidocaine 2% PF 5 ML VIAL ONE (07:02)
[2019-10-18] MEDS ORDERED: Propofol 10 MG/ML 20 ML BTL ONE (07:03)
[2019-10-18] MEDS ORDERED: Midazolam 2 mg/2 ml VIAL 1 mg/ml 2 ml VIAL (2 mg) ONE (07:04)
[2019-10-18] MEDS ORDERED: fentaNYL 100 mcg/2 ml 50 MCG/ML VIAL ONE ×4 (07:04→11:34)
[2019-10-18] MEDS ORDERED: Sevoflurane BOTTLE ONE (07:16)
[2019-10-18] MEDS ORDERED: Lidocaine 1% w EPI 1:200,000 SDV 30 ML VIAL ONE (07:28)
[2019-10-18] MEDS ORDERED: Phenylephrine 40 mcg/mL 10mL (400mcg) SYRINGE ONE (07:53)
[2019-10-18] MEDS ORDERED: Dexamethasone IV 4 MG/ML VIAL 1 ml VIAL ONE (07:55)
[2019-10-18] MEDS ORDERED: HYDROmorphone 1 MG/1 ML SYRINGE ONE ×2 (08:25→11:45)
[2019-10-18] MEDS ORDERED: Ondansetron 4 mg VIAL 2 MG/ML 2 ml VIAL IV PRN ×2 (09:33→11:18)
[2019-10-18] MEDS ORDERED: Naloxone 0.4 mg VIAL 0.4 mg/ml 1 ml VIAL IV PRN (09:33)
[2019-10-18] MEDS ORDERED: Ondansetron 4 mg VIAL 2 MG/ML 2 ml VIAL ONE (10:31)
[2019-10-18] MEDS: fentaNYL 100 mcg/2 ml 50 MCG/ML VIAL IV PRN ×5 (11:07→11:36)
[2019-10-18] MEDS ORDERED: Magnesium Hydroxide LIQ 30 ML UDC PO PRN (11:18)
[2019-10-18] MEDS: HYDROmorphone 1 MG/1 ML SYRINGE IV PRN ×4 (11:46→12:04)
[2019-10-18] MEDS ORDERED: Senna TAB 8.6 mg TAB PO PRN (13:32)
[2019-10-18] MEDS ORDERED: Lactated Ringers 1000 ml BAG 1,000 ML IV SCH (14:00)
[2019-10-18] MEDS ORDERED: Buprenorp/Nalox 4-1 MG FILM SL FILM ONE (17:21)
[2019-10-18] MEDS ORDERED: Senna TAB 8.6 mg TAB PO SCH (21:00)
[2019-10-18] MEDS: Pregabalin 50 mg CAP (*) PO SCH (22:27)
[2019-10-19] MEDS ORDERED: Buprenorp/Nalox 8-2 MG FILM SL FILM SCH ×3 (08:30→09:00)
[2019-10-19] MEDS: Pregabalin 50 mg CAP (*) PO SCH (08:46)
[2019-10-19 11:10] VITALS: BP 115/70
== END 2019-10-19 12:30 | disposition home or self-care (01) | DRG 321 ==
LOC: AA 06:12 → SSU 11:18
PROVIDERS: ADMIT Neurological Surgery; ATTEND Neurological Surgery